=== PATIENT | male | born 1950 | race Caucasian/White ===

== ENCOUNTER 2018-05-08 19:34 | Inpatient (IN) | payer MEDICARE ==
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
[2018-05-08 19:52] LABS: % BASOPHILS 0.3 % (0.0-2.0); % EOSINOPHILS 3.8 % (0.0-5.0); % LYMPHOCYTES 24.6 % (20.0-50.0); % MONOCYTES 9.8 % (2.0-10.0); % NEUTROPHILS 61.5 % (40.0-80.0); EOSINOPHILE ABSOLUTE 0.4 Th/cmm (0.1-0.4); HEMATOCRIT 45.5 % (41.0-60); HEMOGLOBIN 15.4 gm/dL (12-16); LYMPHOCYTE ABSOLUTE 2.6 Th/cmm (1.5-3.0); MEAN CELL VOLUME 87.5 fl (80-99); MEAN CORPUSCULAR HEMOGLOBIN 29.6 pg (27.0-31.0); MEAN CORPUSCULAR HGB CONC 33.8 pg (28.0-36.0); MEAN PLATELET VOLUME 9.2 fl; NEUTROPHILE ABSOLUTE 6.7 Th/cmm (1.8-8.0); PLATELET COUNT 234 Th/cmm (150-400); RED CELL DISTRIBUTION WIDTH 13.1 % (11.5-20.0); WHITE BLOOD COUNT 10.7 Th/cmm (4.8-10.8)
[2018-05-08 20:09] LABS: ALBUMIN 3.8 gm/dL (4.2-5.5); ALKALINE PHOSPHATASE 92 U/L (34-104); ANION GAP 11.7 (7.0-16.0); BILIRUBIN,TOTAL 0.2 mg/dL (0.3-1.0); BUN - UREA NITROGEN 23 mg/dL (7-25); CALCIUM SERUM 9.3 mg/dL (8.6-10.3); CARBON DIOXIDE 23.6 mEq/L (21.0-31.0); CHLORIDE 104 mEq/L (98-107); CHOLESTEROL 201 mg/dL (<200); CREATININE - SERUM 1.3 mg/dL (0.7-1.3); GFR AFRICAN-AMERICAN > 60.0 ml/min (>90); GFR NON AFRICAN-AMERICAN 58.7 ml/min; GLUCOSE 110 mg/dL (70-105); HDL -HIGH DENSITY LIPOPROTEIN 37 mg/dL (23-92); POTASSIUM SERUM 3.3 mEq/L (3.5-5.1); SGOT 15 U/L (13-39); SGPT/ALT 10 U/L (7-52); SODIUM SERUM 136 mEq/L (136-145); TOTAL PROTEIN,SERUM 7.6 gm/dL (6.0-8.3); TRIGLYCERIDES 210 mg/dL (<150)
[2018-05-08 20:23] LABS: URINE SOURCE FOLEY PORT
[2018-05-08 20:25] LABS: URINE BILIRUBIN NEGATIVE (NEGATIVE); URINE BLOOD LARGE (NEGATIVE); URINE GLUCOSE (UA) NEGATIVE (NEGATIVE); URINE KETONE NEGATIVE (NEGATIVE); URINE LEUKOCYTE ESTERASE MODERATE (NEGATIVE); URINE MICROSCOPIC INDICATED? YES; URINE NITRATE POSITIVE (NEGATIVE); URINE PROTEIN 30 mg/dL (NEGATIVE); URINE UROBILINOGEN 0.2 E.U./dL (0.2 - 1.0)
[2018-05-08 21:17] LABS: URINE CLARITY SLIGHT CLOUDY (CLEAR); URINE COLOR YELLOW
[2018-05-08] MEDS ORDERED: Potassium Chloride 20 mEq ER Tab PO ONE ×2 (21:18→21:32)
[2018-05-08 21:24] LABS: URINE BACTERIA MODERATE /hpf (NONE SEEN); URINE EPITHELIAL CELLS FEW /lpf (FEW); URINE WBC 25-50 /hpf (0-5)
[2018-05-08 23:46] VITALS: BP 138/80
[2018-05-08] MEDS ORDERED: Magnesium Hydroxide (MOM) 30 mL UDC PO PRN (23:46)
[2018-05-08] MEDS ORDERED: Maalox 30 mL Cup PO PRN (23:46)
[2018-05-09] MEDS ORDERED: Non-Formulary Item 1 EA (Multivitamin [Multivitamins] 1 TAB) PO SCH (09:00)
[2018-05-09] MEDS: Multivitamin Tab PO SCH (09:44)
[2018-05-09] MEDS ORDERED: Haloperidol Lactate 5 mg/mL 1mL Vial IM ONE (13:34)
[2018-05-09] MEDS ORDERED: Haloperidol Lactate 5 mg/mL 1mL Vial ONE (13:35)
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
[2018-05-09 22:27] LABS: A1C % 4.9 % (4.0-6.0)
[2018-05-10] MEDS: Multivitamin Tab PO SCH (08:32)
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
--- NOTE | 2018-05-10 20:36 | Progress Notes ---
DATE: 05/10/2018 SUBJECTIVE: The patient in the hospital, agitation, combative behaviors. The patient is confused, states he feels "terrible." Does not know why he is here. He states the year is 1917, the month is February. States that it is December Day. Noted to be anxious, upset, trying to get up. Staff noting that he remains irritable, paranoid, labile, confused, not following directions, poorly oriented, dirty, unkempt, not taking care of himself, coming from [facility] due to increased agitation as noted. ASSESSMENT: The patient is confused, disoriented, agitated, poor redirection, requiring emergency medications. PLAN: We will continue to monitor. Continue Aricept for now. Consider switching to Seroquel. Given his ongoing symptoms, he is not safe for discharge. JOB# [id number]
--- NOTE | 2018-05-11 09:03 | Progress Notes ---
DATE: 05/11/2018 SUBJECTIVE: The patient in the hospital, agitation, combative behaviors, asking "why I'm here," does not know why he is here. Very upset, angry, yelling at times. States the year is 2011, the month is May, " I belong here." The patient with poor redirection and resistive to care, commanding to nursing staff, verbally abusive, very upset, irritable, angry. ASSESSMENT: The patient remains symptomatic, confused, angry, irritable, impulsive, unpredictable, shouting at staff, yelling at staff, argumentative. PLAN: We will continue to monitor. Continue medications: Abilify for example. Given his ongoing symptoms, he is not safe for discharge. Consider increasing Abilify dosing. JOB# [id number]
[2018-05-11] MEDS: Multivitamin Tab PO SCH (09:40)
--- NOTE | 2018-05-11 13:06 | General Progress Note ---
Subjective - Review of Systems Events since last encounter: patient is irritable confused, angry at staff Objective - Results Result Diagrams: 05/08/18 19:44 05/08/18 19:44 Recent Labs: Laboratory Last Values WBC 10.7 Th/cmm (4.8-10.8) 05/08/18 19:44 RBC 5.20 Mil/cmm (3.80-5.80) 05/08/18 19:44 Hgb 15.4 gm/dL (12-16) 05/08/18 19:44 Hct 45.5 % (41.0-60) 05/08/18 19:44 MCV 87.5 fl (80-99) 05/08/18 19:44 MCH 29.6 pg (27.0-31.0) 05/08/18 19:44 MCHC Differential 33.8 pg (28.0-36.0) 05/08/18 19:44 RDW 13.1 % (11.5-20.0) 05/08/18 19:44 Plt Count 234 Th/cmm (150-400) 05/08/18 19:44 MPV 9.2 fl 05/08/18 19:44 Neutrophils % 61.5 % (40.0-80.0) 05/08/18 19:44 Lymphocytes % 24.6 % (20.0-50.0) 05/08/18 19:44 Monocytes % 9.8 % (2.0-10.0) 05/08/18 19:44 Eosinophils % 3.8 % (0.0-5.0) 05/08/18 19:44 Basophils % 0.3 % (0.0-2.0) 05/08/18 19:44 Sodium 136 mEq/L (136-145) 05/08/18 19:44 Potassium 3.3 mEq/L (3.5-5.1) L 05/08/18 19:44 Chloride 104 mEq/L (98-107) 05/08/18 19:44 Carbon Dioxide 23.6 mEq/L (21.0-31.0) 05/08/18 19:44 Anion Gap 11.7 (7.0-16.0) 05/08/18 19:44 BUN 23 mg/dL (7-25) 05/08/18 19:44 Creatinine 1.3 mg/dL (0.7-1.3) 05/08/18 19:44 Est GFR ( Amer) > 60.0 ml/min (>90) 05/08/18 19:44 Est GFR (Non-Af Amer) 58.7 ml/min 05/08/18 19:44 BUN/Creatinine Ratio 17.7 05/08/18 19:44 Glucose 110 mg/dL (70-105) H 05/08/18 19:44 Hemoglobin A1c % 4.9 % (4.0-6.0) 05/08/18 19:44 Calcium 9.3 mg/dL (8.6-10.3) 05/08/18 19:44 Total Bilirubin 0.2 mg/dL (0.3-1.0) L 05/08/18 19:44 AST 15 U/L (13-39) 05/08/18 19:44 ALT 10 U/L (7-52) 05/08/18 19:44 Alkaline Phosphatase 92 U/L (34-104) 05/08/18 19:44 Total Protein 7.6 gm/dL (6.0-8.3) 05/08/18 19:44 Albumin 3.8 gm/dL (4.2-5.5) L 05/08/18 19:44 Globulin 3.8 gm/dL 05/08/18 19:44 Albumin/Globulin Ratio 1.0 (1.0-1.8) 05/08/18 19:44 Triglycerides 210 mg/dL (<150) H 05/08/18 19:44 Cholesterol 201 mg/dL (<200) H 05/08/18 19:44 LDL Cholesterol Direct 134 mg/dL (75-193) 05/08/18 19:44 HDL Cholesterol 37 mg/dL (23-92) 05/08/18 19:44 TSH 1.23 uIU/ml (0.34-5.60) 05/08/18 19:44 Urine Source [place] 05/08/18 20:00 Urine Color YELLOW 05/08/18 20:00 Urine Clarity SLIGHT CLOUDY (CLEAR) 05/08/18 20:00 Urine pH 6.0 (4.6 - 8.0) 05/08/18 20:00 Ur Specific [place] 1.025 (1.005-1.030) 05/08/18 20:00 Urine Protein 30 mg/dL (NEGATIVE) H 05/08/18 20:00 Urine Glucose (UA) NEGATIVE mg/dL (NEGATIVE) 05/08/18 20:00 Urine Ketones NEGATIVE mg/dL (NEGATIVE) 05/08/18 20:00 Urine Blood LARGE (NEGATIVE) H 05/08/18 20:00 Urine Nitrate POSITIVE (NEGATIVE) H 05/08/18 20:00 Urine Bilirubin NEGATIVE (NEGATIVE) 05/08/18 20:00 Urine Urobilinogen 0.2 E.U./dL (0.2 - 1.0) 05/08/18 20:00 Ur Leukocyte Esterase MODERATE (NEGATIVE) H 05/08/18 20:00 Urine RBC 10-25 /hpf (0-5) H 05/08/18 20:00 Urine WBC 25-50 /hpf (0-5) H 05/08/18 20:00 Ur Epithelial Cells FEW /lpf (FEW) 05/08/18 20:00 Urine Bacteria MODERATE /hpf (NONE SEEN) H 05/08/18 20:00 RPR NONREACTIVE (NONREACTIVE) 05/08/18 19:44 - Physical Exam Vitals and I&O: Vital Signs Temp 97.9 F 05/11/18 04:35 Pulse 96 05/11/18 09:40 Resp 19 05/11/18 04:35 BP 151/98 05/11/18 09:40 Pulse Ox 95 05/11/18 04:35 Intake & Output 05/10/18 05/11/18 05/11/18 18:59 06:59 18:59 Intake Total 1800 480 Output Total 800 Balance 1000 480 Intake: Oral 1800 480 Output: Urine 800 Other: # Voids 2 # Bowel Movements 1 Active Medications: Current Medications Acetaminophen (Tylenol) 650 mg PO Q4HR PRN PRN Reason: Mild Pain / Temp above 100 Stop: 07/07/18 23:45 Al Hydrox/Mg Hydrox/Simethicone (Maalox) 30 ml PO Q4HR PRN PRN Reason: GI DISTRESS Stop: 07/07/18 23:45 Amlodipine Besylate (Norvasc) 10 mg PO DAILY GENNA Stop: 07/08/18 08:59 Last Admin: 05/11/18 09:40 Dose: 10 mg Aripiprazole (Abilify) 10 mg PO HS GENNA; Protocol Stop: 07/08/18 20:59 Last Admin: 05/10/18 20:26 Dose: Not Given Lorazepam (Ativan) 0.5 mg PO Q4HR PRN; Protocol PRN Reason: Anxiety Stop: 06/07/18 23:45 Last Admin: 05/09/18 09:43 Dose: 0.5 mg Magnesium Hydroxide (Milk Of Magnesia) 30 ml PO HS PRN PRN Reason: Constipation Multivitamins/Vitamin C (Theragran) 1 tab PO DAILY GENNA Stop: 07/08/18 08:59 Last Admin: 05/11/18 09:40 Dose: 1 tab Tamsulosin HCl (Flomax) 0.4 mg PO DAILY GENNA Stop: 07/08/18 08:59 Last Admin: 05/11/18 09:40 Dose: 0.4 mg Tramadol HCl (Ultram) 50 mg PO Q12H PRN PRN Reason: Pain (Moderate) Stop: 07/08/18 07:02 Zolpidem Tartrate (Ambien) 5 mg PO HS PRN PRN Reason: Insomnia Stop: 07/07/18 23:45
[2018-05-12] MEDS: Multivitamin Tab PO SCH (08:35)
--- NOTE | 2018-05-12 16:44 | Internal Medicine Prog Note ---
Internal Medicine Objective - Results Result Diagrams: 05/08/18 19:44 05/08/18 19:44 Recent Labs: Laboratory Last Values WBC 10.7 Th/cmm (4.8-10.8) 05/08/18 19:44 RBC 5.20 Mil/cmm (3.80-5.80) 05/08/18 19:44 Hgb 15.4 gm/dL (12-16) 05/08/18 19:44 Hct 45.5 % (41.0-60) 05/08/18 19:44 MCV 87.5 fl (80-99) 05/08/18 19:44 MCH 29.6 pg (27.0-31.0) 05/08/18 19:44 MCHC Differential 33.8 pg (28.0-36.0) 05/08/18 19:44 RDW 13.1 % (11.5-20.0) 05/08/18 19:44 Plt Count 234 Th/cmm (150-400) 05/08/18 19:44 MPV 9.2 fl 05/08/18 19:44 Neutrophils % 61.5 % (40.0-80.0) 05/08/18 19:44 Lymphocytes % 24.6 % (20.0-50.0) 05/08/18 19:44 Monocytes % 9.8 % (2.0-10.0) 05/08/18 19:44 Eosinophils % 3.8 % (0.0-5.0) 05/08/18 19:44 Basophils % 0.3 % (0.0-2.0) 05/08/18 19:44 Sodium 136 mEq/L (136-145) 05/08/18 19:44 Potassium 3.3 mEq/L (3.5-5.1) L 05/08/18 19:44 Chloride 104 mEq/L (98-107) 05/08/18 19:44 Carbon Dioxide 23.6 mEq/L (21.0-31.0) 05/08/18 19:44 Anion Gap 11.7 (7.0-16.0) 05/08/18 19:44 BUN 23 mg/dL (7-25) 05/08/18 19:44 Creatinine 1.3 mg/dL (0.7-1.3) 05/08/18 19:44 Est GFR ( Amer) > 60.0 ml/min (>90) 05/08/18 19:44 Est GFR (Non-Af Amer) 58.7 ml/min 05/08/18 19:44 BUN/Creatinine Ratio 17.7 05/08/18 19:44 Glucose 110 mg/dL (70-105) H 05/08/18 19:44 POC Glucose 172 MG/DL (70 - 105) H 05/12/18 11:35 Hemoglobin A1c % 4.9 % (4.0-6.0) 05/08/18 19:44 Calcium 9.3 mg/dL (8.6-10.3) 05/08/18 19:44 Total Bilirubin 0.2 mg/dL (0.3-1.0) L 05/08/18 19:44 AST 15 U/L (13-39) 05/08/18 19:44 ALT 10 U/L (7-52) 05/08/18 19:44 Alkaline Phosphatase 92 U/L (34-104) 05/08/18 19:44 Total Protein 7.6 gm/dL (6.0-8.3) 05/08/18 19:44 Albumin 3.8 gm/dL (4.2-5.5) L 05/08/18 19:44 Globulin 3.8 gm/dL 05/08/18 19:44 Albumin/Globulin Ratio 1.0 (1.0-1.8) 05/08/18 19:44 Triglycerides 210 mg/dL (<150) H 05/08/18 19:44 Cholesterol 201 mg/dL (<200) H 05/08/18 19:44 LDL Cholesterol Direct 134 mg/dL (75-193) 05/08/18 19:44 HDL Cholesterol 37 mg/dL (23-92) 05/08/18 19:44 TSH 1.23 uIU/ml (0.34-5.60) 05/08/18 19:44 Urine Source [place] 05/08/18 20:00 Urine Color YELLOW 05/08/18 20:00 Urine Clarity SLIGHT CLOUDY (CLEAR) 05/08/18 20:00 Urine pH 6.0 (4.6 - 8.0) 05/08/18 20:00 Ur Specific [place] 1.025 (1.005-1.030) 05/08/18 20:00 Urine Protein 30 mg/dL (NEGATIVE) H 05/08/18 20:00 Urine Glucose (UA) NEGATIVE mg/dL (NEGATIVE) 05/08/18 20:00 Urine Ketones NEGATIVE mg/dL (NEGATIVE) 05/08/18 20:00 Urine Blood LARGE (NEGATIVE) H 05/08/18 20:00 Urine Nitrate POSITIVE (NEGATIVE) H 05/08/18 20:00 Urine Bilirubin NEGATIVE (NEGATIVE) 05/08/18 20:00 Urine Urobilinogen 0.2 E.U./dL (0.2 - 1.0) 05/08/18 20:00 Ur Leukocyte Esterase MODERATE (NEGATIVE) H 05/08/18 20:00 Urine RBC 10-25 /hpf (0-5) H 05/08/18 20:00 Urine WBC 25-50 /hpf (0-5) H 05/08/18 20:00 Ur Epithelial Cells FEW /lpf (FEW) 05/08/18 20:00 Urine Bacteria MODERATE /hpf (NONE SEEN) H 05/08/18 20:00 RPR NONREACTIVE (NONREACTIVE) 05/08/18 19:44 - Physical Exam Vitals and I&O: Vital Signs Temp 98.6 F 05/12/18 14:03 Pulse 103 05/12/18 14:03 Resp 18 05/12/18 14:03 BP 144/87 05/12/18 14:03 Pulse Ox 94 05/12/18 14:03 Intake & Output 05/11/18 05/12/18 05/12/18 18:59 06:59 18:59 Intake Total 2400 480 Output Total 800 Balance 1600 480 Intake: Oral 2400 480 Output: Urine 800 Other: # Voids 2 # Bowel Movements 1 Active Medications: Current Medications Acetaminophen (Tylenol) 650 mg PO Q4HR PRN PRN Reason: Mild Pain / Temp above 100 Stop: 07/07/18 23:45 Al Hydrox/Mg Hydrox/Simethicone (Maalox) 30 ml PO Q4HR PRN PRN Reason: GI DISTRESS Stop: 07/07/18 23:45 Amlodipine Besylate (Norvasc) 10 mg PO DAILY GENNA Stop: 07/08/18 08:59 Last Admin: 05/12/18 08:35 Dose: 10 mg Aripiprazole (Abilify) 10 mg PO HS GENNA; Protocol Stop: 07/08/18 20:59 Last Admin: 05/11/18 21:04 Dose: Not Given Lorazepam (Ativan) 0.5 mg PO Q4HR PRN; Protocol PRN Reason: Anxiety Stop: 06/07/18 23:45 Last Admin: 05/09/18 09:43 Dose: 0.5 mg Magnesium Hydroxide (Milk Of Magnesia) 30 ml PO HS PRN PRN Reason: Constipation Multivitamins/Vitamin C (Theragran) 1 tab PO DAILY GENNA Stop: 07/08/18 08:59 Last Admin: 05/12/18 08:35 Dose: 1 tab Tamsulosin HCl (Flomax) 0.4 mg PO DAILY GENNA Stop: 07/08/18 08:59 Last Admin: 05/12/18 08:35 Dose: 0.4 mg Tramadol HCl (Ultram) 50 mg PO Q12H PRN PRN Reason: Pain (Moderate) Stop: 07/08/18 07:02 Zolpidem Tartrate (Ambien) 5 mg PO HS PRN PRN Reason: Insomnia Stop: 07/07/18 23:45 Nutritional Asmnt/Malnutr-PDOC - Dietary Evaluation Malnutrition Findings (Please click <Entered> for more info): Nutritional Asmnt/Malnutrition Start: 05/12/18 15: 03 Text: Status: Complete Freq: Protocol: Document 05/12/18 15:03 LCHENG (Rec: 05/12/18 15:26 [email or web address] [email or web address]) Nutritional Asmnt/Malnutrition Patient General Information Nutritional Screening Moderate Risk Diagnosis psychosis Pertinent Medical Hx/Surgical Hx HTN, fossa cellulitis, hernia, splenectomy Subjective Information Pt seen sleeping in bed at time of visit. Per EMR< PO intake 100% of meals. Current Diet Order/ Nutrition Support cardiac Pertinent Medications theragran Pertinent Labs 05/08 K 3.3, glucose 110, A1c 4 .9, Alb 3.8 05/12 POC 172 Nutritional Hx/Data Height 1.7 m Height (Calculated Centimeters) 170.2 Current Weight (lbs) 72.575 kg Weight (Calculated Kilograms) 72.6 Weight (Calculated Grams) 04294.8 [place] Body Weight 148 Body Mass Index (BMI) 25.0 Weight Status Overweight GI Symptoms GI Symptoms None Last BM 8/26 Difficult in: None Skin Integrity/Comment: rash Current %PO Good (75-100%) Estimated Nutritional Goals BEE in Kcals: Using Current wt Calories/Kcals/Kg 23-27 Kcals Calculated 8227-7185 Protein: Using Current wt Protein g/k.8-1 Protein Calculated 58-73 Fluid: ml 1679-1970ml (1ml/kcal) Nutritional Problem 1. Problem Problem altered nutrition related labs Etiology electrolytes imbalance Signs/Symptoms: K 3.3 Malnutrition Alert Is there a minimum of two criteria No selected? Query Text:Check all the applicable criteria. A minimum of two criteria are recommended for diagnosis of either severe or non-severe malnutrition. Malnutrition Related to Morbid Obesity Malnutrition related to morbid obesity No Intervention/Recommendation Comments 1. Continue with current diet as ordered. MD to replace lytes. 2. Monitor PO intake, wt, labs and skin integrity 3. F/U as low risk in 7 days, 05/19 Expected Outcomes/Goals Expected Outcomes/Goals 1. PO intake to meet at least 75% of nutritional needs. 2. Wt stability, skin to remain intact, labs to approach WNL.
[2018-05-13] MEDS: Multivitamin Tab PO SCH (08:30)
--- NOTE | 2018-05-13 22:57 | Discharge Summary ---
DATE OF DISCHARGE: 05/13/2018 PATIENT'S AGE: 67. SEX: Male. PHYSICIAN: Luis Thapa MD, MPH FINAL DIAGNOSES: PRIMARY DIAGNOSES: Schizoaffective disorder, bipolar type, severe, with psychotic features. REASON FOR HOSPITALIZATION: The patient was admitted to the hospital because of combative behavior and hitting and agitation. HOSPITAL COURSE: The patient continued to be in angry and in irritable mood. The patient also was easily agitated. The patient also was at times threatening others. Also was refusing to take medications. Gradually, the patient was calmer and although he was not taking medications and refused to take medications. He had behavioral modification help the patient to be calmer. He also was interacting slightly more. The patient was discharged from the hospital. Physical examination of the patient was basically with no major medical issues or problems while in the hospital. AFTER DISCHARGE PLANS: The patient discharged from the hospital to [facility] with plans for outpatient treatment and followup to continue as an outpatient. EXPECTED OUTCOME AFTER DISCHARGE: Guarded because the patient refusal to take psychotropic medications. [facility]# [id number]
--- NOTE | 2018-05-14 00:18 | Progress Notes ---
DATE: 05/12/2018 SUBJECTIVE: Chart reviewed and the patient interviewed. Also discussed the patient's condition with the staff and reviewed records and labs. The patient is still in irritable and angry mood. The patient also is still refusing to take Abilify. Also, has been obnoxious and rude with the staff and has been needing lot of redirections. The patient also is still feeling hopeless at times, but at the same time, he is refusing to cooperate with the staff. ASSESSMENT: The patient is still agitated and in irritable mood, but no major behavioral problems. TREATMENT PLAN: Continue to monitor his behavior and his condition closely. Also, continue working on behavioral modification and adjusting psychotropic medications and continue to follow up. JOB# [id number]
--- NOTE | 2018-05-14 00:36 | Progress Notes ---
DATE: 05/13/2018 SUBJECTIVE: Chart reviewed and the patient interviewed. Also discussed the patient's condition with the staff and reviewed records and labs. The patient is still anxious and in a depressed mood. The patient said "I don't feel good." He is still interacting minimally with others and he is still feeling hopeless and helpless. Also, still suspicious and paranoid. Otherwise, the patient is compliant with taking his medications with no side effects of medications. ASSESSMENT: The patient is still psychotic and depressed. TREATMENT PLAN: Continue to monitor his behavior and his condition. We will continue to work on his ineffective coping and discharge plans. JOB# [id number]
[2018-05-14] MEDS: Multivitamin Tab PO SCH (09:00)
--- NOTE | 2018-05-14 21:15 | General Progress Note ---
Subjective - Review of Systems Service Date: 05/14/18 Subjective: awake, resting, nad Objective - Results Result Diagrams: 05/08/18 19:44 05/08/18 19:44 Recent Labs: Laboratory Last Values WBC 10.7 Th/cmm (4.8-10.8) 05/08/18 19:44 RBC 5.20 Mil/cmm (3.80-5.80) 05/08/18 19:44 Hgb 15.4 gm/dL (12-16) 05/08/18 19:44 Hct 45.5 % (41.0-60) 05/08/18 19:44 MCV 87.5 fl (80-99) 05/08/18 19:44 MCH 29.6 pg (27.0-31.0) 05/08/18 19:44 MCHC Differential 33.8 pg (28.0-36.0) 05/08/18 19:44 RDW 13.1 % (11.5-20.0) 05/08/18 19:44 Plt Count 234 Th/cmm (150-400) 05/08/18 19:44 MPV 9.2 fl 05/08/18 19:44 Neutrophils % 61.5 % (40.0-80.0) 05/08/18 19:44 Lymphocytes % 24.6 % (20.0-50.0) 05/08/18 19:44 Monocytes % 9.8 % (2.0-10.0) 05/08/18 19:44 Eosinophils % 3.8 % (0.0-5.0) 05/08/18 19:44 Basophils % 0.3 % (0.0-2.0) 05/08/18 19:44 Sodium 136 mEq/L (136-145) 05/08/18 19:44 Potassium 3.3 mEq/L (3.5-5.1) L 05/08/18 19:44 Chloride 104 mEq/L (98-107) 05/08/18 19:44 Carbon Dioxide 23.6 mEq/L (21.0-31.0) 05/08/18 19:44 Anion Gap 11.7 (7.0-16.0) 05/08/18 19:44 BUN 23 mg/dL (7-25) 05/08/18 19:44 Creatinine 1.3 mg/dL (0.7-1.3) 05/08/18 19:44 Est GFR ( Amer) > 60.0 ml/min (>90) 05/08/18 19:44 Est GFR (Non-Af Amer) 58.7 ml/min 05/08/18 19:44 BUN/Creatinine Ratio 17.7 05/08/18 19:44 Glucose 110 mg/dL (70-105) H 05/08/18 19:44 POC Glucose 172 MG/DL (70 - 105) H 05/12/18 11:35 Hemoglobin A1c % 4.9 % (4.0-6.0) 05/08/18 19:44 Calcium 9.3 mg/dL (8.6-10.3) 05/08/18 19:44 Total Bilirubin 0.2 mg/dL (0.3-1.0) L 05/08/18 19:44 AST 15 U/L (13-39) 05/08/18 19:44 ALT 10 U/L (7-52) 05/08/18 19:44 Alkaline Phosphatase 92 U/L (34-104) 05/08/18 19:44 Total Protein 7.6 gm/dL (6.0-8.3) 05/08/18 19:44 Albumin 3.8 gm/dL (4.2-5.5) L 05/08/18 19:44 Globulin 3.8 gm/dL 05/08/18 19:44 Albumin/Globulin Ratio 1.0 (1.0-1.8) 05/08/18 19:44 Triglycerides 210 mg/dL (<150) H 05/08/18 19:44 Cholesterol 201 mg/dL (<200) H 05/08/18 19:44 LDL Cholesterol Direct 134 mg/dL (75-193) 05/08/18 19:44 HDL Cholesterol 37 mg/dL (23-92) 05/08/18 19:44 TSH 1.23 uIU/ml (0.34-5.60) 05/08/18 19:44 Urine Source [place] 05/08/18 20:00 Urine Color YELLOW 05/08/18 20:00 Urine Clarity SLIGHT CLOUDY (CLEAR) 05/08/18 20:00 Urine pH 6.0 (4.6 - 8.0) 05/08/18 20:00 Ur Specific [place] 1.025 (1.005-1.030) 05/08/18 20:00 Urine Protein 30 mg/dL (NEGATIVE) H 05/08/18 20:00 Urine Glucose (UA) NEGATIVE mg/dL (NEGATIVE) 05/08/18 20:00 Urine Ketones NEGATIVE mg/dL (NEGATIVE) 05/08/18 20:00 Urine Blood LARGE (NEGATIVE) H 05/08/18 20:00 Urine Nitrate POSITIVE (NEGATIVE) H 05/08/18 20:00 Urine Bilirubin NEGATIVE (NEGATIVE) 05/08/18 20:00 Urine Urobilinogen 0.2 E.U./dL (0.2 - 1.0) 05/08/18 20:00 Ur Leukocyte Esterase MODERATE (NEGATIVE) H 05/08/18 20:00 Urine RBC 10-25 /hpf (0-5) H 05/08/18 20:00 Urine WBC 25-50 /hpf (0-5) H 05/08/18 20:00 Ur Epithelial Cells FEW /lpf (FEW) 05/08/18 20:00 Urine Bacteria MODERATE /hpf (NONE SEEN) H 05/08/18 20:00 RPR NONREACTIVE (NONREACTIVE) 05/08/18 19:44 - Physical Exam Vitals and I&O: Vital Signs Temp 98.1 F 05/14/18 16:45 Pulse 104 05/14/18 16:45 Resp 20 05/14/18 16:45 BP 137/98 05/14/18 16:45 Pulse Ox 97 05/14/18 16:45 Active Medications: Current Medications Acetaminophen (Tylenol) 650 mg PO Q4HR PRN PRN Reason: Mild Pain / Temp above 100 Stop: 07/07/18 23:45 Al Hydrox/Mg Hydrox/Simethicone (Maalox) 30 ml PO Q4HR PRN PRN Reason: GI DISTRESS Stop: 07/07/18 23:45 Amlodipine Besylate (Norvasc) 10 mg PO DAILY GENNA Stop: 07/08/18 08:59 Last Admin: 05/14/18 09:00 Dose: 10 mg Aripiprazole (Abilify) 10 mg PO HS GENNA; Protocol Stop: 07/08/18 20:59 Last Admin: 05/13/18 21:03 Dose: Not Given Lorazepam (Ativan) 0.5 mg PO Q4HR PRN; Protocol PRN Reason: Anxiety Stop: 06/07/18 23:45 Last Admin: 05/09/18 09:43 Dose: 0.5 mg Magnesium Hydroxide (Milk Of Magnesia) 30 ml PO HS PRN PRN Reason: Constipation Multivitamins/Vitamin C (Theragran) 1 tab PO DAILY GENNA Stop: 07/08/18 08:59 Last Admin: 05/14/18 09:00 Dose: 1 tab Tamsulosin HCl (Flomax) 0.4 mg PO DAILY GENNA Stop: 07/08/18 08:59 Last Admin: 05/14/18 09:00 Dose: 0.4 mg Tramadol HCl (Ultram) 50 mg PO Q12H PRN PRN Reason: Pain (Moderate) Stop: 07/08/18 07:02 Zolpidem Tartrate (Ambien) 5 mg PO HS PRN PRN Reason: Insomnia Stop: 07/07/18 23:45 Nutritional Asmnt/Malnutr-PDOC - Dietary Evaluation Malnutrition Findings (Please click <Entered> for more info): Nutritional Asmnt/Malnutrition Start: 05/12/18 15: 03 Text: Status: Complete Freq: Protocol: Document 05/12/18 15:03 LCHENG (Rec: 05/12/18 15:26 LCCRISTINAG [email or web address]) Nutritional Asmnt/Malnutrition Patient General Information Nutritional Screening Moderate Risk Diagnosis psychosis Pertinent Medical Hx/Surgical Hx HTN, fossa cellulitis, hernia, splenectomy Subjective Information Pt seen sleeping in bed at time of visit. Per EMR< PO intake 100% of meals. Current Diet Order/ Nutrition Support cardiac Pertinent Medications theragran Pertinent Labs 05/08 K 3.3, glucose 110, A1c 4 .9, Alb 3.8 05/12 POC 172 Nutritional Hx/Data Height 1.7 m Height (Calculated Centimeters) 170.2 Current Weight (lbs) 72.575 kg Weight (Calculated Kilograms) 72.6 Weight (Calculated Grams) 36710.8 [place] Body Weight 148 Body Mass Index (BMI) 25.0 Weight Status Overweight GI Symptoms GI Symptoms None Last BM 05/11 Difficult in: None Skin Integrity/Comment: rash Current %PO Good (75-100%) Estimated Nutritional Goals BEE in Kcals: Using Current wt Calories/Kcals/Kg 23-27 Kcals Calculated Protein: Using Current wt Protein g/k.8-1 Protein Calculated 58-73 Fluid: ml 1679-1970ml (1ml/kcal) Nutritional Problem 1. Problem Problem altered nutrition related labs Etiology electrolytes imbalance Signs/Symptoms: K 3.3 Malnutrition Alert Is there a minimum of two criteria No selected? Query Text:Check all the applicable criteria. A minimum of two criteria are recommended for diagnosis of either severe or non-severe malnutrition. Malnutrition Related to Morbid Obesity Malnutrition related to morbid obesity No Intervention/Recommendation Comments 1. Continue with current diet as ordered. MD to replace lytes. 2. Monitor PO intake, wt, labs and skin integrity 3. F/U as low risk in 7 days, 05/19 Expected Outcomes/Goals Expected Outcomes/Goals 1. PO intake to meet at least 75% of nutritional needs. 2. Wt stability, skin to remain intact, labs to approach WNL.
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
[2018-05-15] MEDS: Multivitamin Tab PO SCH (08:07)
--- NOTE | 2018-05-15 11:11 | General Progress Note ---
Subjective - Review of Systems Events since last encounter: awake in no distress no signs of pain Subjective: awake, resting, nad Objective - Results Result Diagrams: 05/08/18 19:44 05/08/18 19:44 Recent Labs: Laboratory Last Values WBC 10.7 Th/cmm (4.8-10.8) 05/08/18 19:44 RBC 5.20 Mil/cmm (3.80-5.80) 05/08/18 19:44 Hgb 15.4 gm/dL (12-16) 05/08/18 19:44 Hct 45.5 % (41.0-60) 05/08/18 19:44 MCV 87.5 fl (80-99) 05/08/18 19:44 MCH 29.6 pg (27.0-31.0) 05/08/18 19:44 MCHC Differential 33.8 pg (28.0-36.0) 05/08/18 19:44 RDW 13.1 % (11.5-20.0) 05/08/18 19:44 Plt Count 234 Th/cmm (150-400) 05/08/18 19:44 MPV 9.2 fl 05/08/18 19:44 Neutrophils % 61.5 % (40.0-80.0) 05/08/18 19:44 Lymphocytes % 24.6 % (20.0-50.0) 05/08/18 19:44 Monocytes % 9.8 % (2.0-10.0) 05/08/18 19:44 Eosinophils % 3.8 % (0.0-5.0) 05/08/18 19:44 Basophils % 0.3 % (0.0-2.0) 05/08/18 19:44 Sodium 136 mEq/L (136-145) 05/08/18 19:44 Potassium 3.3 mEq/L (3.5-5.1) L 05/08/18 19:44 Chloride 104 mEq/L (98-107) 05/08/18 19:44 Carbon Dioxide 23.6 mEq/L (21.0-31.0) 05/08/18 19:44 Anion Gap 11.7 (7.0-16.0) 05/08/18 19:44 BUN 23 mg/dL (7-25) 05/08/18 19:44 Creatinine 1.3 mg/dL (0.7-1.3) 05/08/18 19:44 Est GFR ( Amer) > 60.0 ml/min (>90) 05/08/18 19:44 Est GFR (Non-Af Amer) 58.7 ml/min 05/08/18 19:44 BUN/Creatinine Ratio 17.7 05/08/18 19:44 Glucose 110 mg/dL (70-105) H 05/08/18 19:44 POC Glucose 172 MG/DL (70 - 105) H 05/12/18 11:35 Hemoglobin A1c % 4.9 % (4.0-6.0) 05/08/18 19:44 Calcium 9.3 mg/dL (8.6-10.3) 05/08/18 19:44 Total Bilirubin 0.2 mg/dL (0.3-1.0) L 05/08/18 19:44 AST 15 U/L (13-39) 05/08/18 19:44 ALT 10 U/L (7-52) 05/08/18 19:44 Alkaline Phosphatase 92 U/L (34-104) 05/08/18 19:44 Total Protein 7.6 gm/dL (6.0-8.3) 05/08/18 19:44 Albumin 3.8 gm/dL (4.2-5.5) L 05/08/18 19:44 Globulin 3.8 gm/dL 05/08/18 19:44 Albumin/Globulin Ratio 1.0 (1.0-1.8) 05/08/18 19:44 Triglycerides 210 mg/dL (<150) H 05/08/18 19:44 Cholesterol 201 mg/dL (<200) H 05/08/18 19:44 LDL Cholesterol Direct 134 mg/dL (75-193) 05/08/18 19:44 HDL Cholesterol 37 mg/dL (23-92) 05/08/18 19:44 TSH 1.23 uIU/ml (0.34-5.60) 05/08/18 19:44 Urine Source [place] 05/08/18 20:00 Urine Color YELLOW 05/08/18 20:00 Urine Clarity SLIGHT CLOUDY (CLEAR) 05/08/18 20:00 Urine pH 6.0 (4.6 - 8.0) 05/08/18 20:00 Ur Specific [place] 1.025 (1.005-1.030) 05/08/18 20:00 Urine Protein 30 mg/dL (NEGATIVE) H 05/08/18 20:00 Urine Glucose (UA) NEGATIVE mg/dL (NEGATIVE) 05/08/18 20:00 Urine Ketones NEGATIVE mg/dL (NEGATIVE) 05/08/18 20:00 Urine Blood LARGE (NEGATIVE) H 05/08/18 20:00 Urine Nitrate POSITIVE (NEGATIVE) H 05/08/18 20:00 Urine Bilirubin NEGATIVE (NEGATIVE) 05/08/18 20:00 Urine Urobilinogen 0.2 E.U./dL (0.2 - 1.0) 05/08/18 20:00 Ur Leukocyte Esterase MODERATE (NEGATIVE) H 05/08/18 20:00 Urine RBC 10-25 /hpf (0-5) H 05/08/18 20:00 Urine WBC 25-50 /hpf (0-5) H 05/08/18 20:00 Ur Epithelial Cells FEW /lpf (FEW) 05/08/18 20:00 Urine Bacteria MODERATE /hpf (NONE SEEN) H 05/08/18 20:00 RPR NONREACTIVE (NONREACTIVE) 05/08/18 19:44 - Physical Exam Vitals and I&O: Vital Signs Temp 98.1 F 05/14/18 16:45 Pulse 82 05/15/18 08:06 Resp 20 05/14/18 16:45 BP 148/94 05/15/18 08:06 Pulse Ox 97 05/14/18 16:45 Active Medications: Current Medications Acetaminophen (Tylenol) 650 mg PO Q4HR PRN PRN Reason: Mild Pain / Temp above 100 Stop: 07/07/18 23:45 Al Hydrox/Mg Hydrox/Simethicone (Maalox) 30 ml PO Q4HR PRN PRN Reason: GI DISTRESS Stop: 07/07/18 23:45 Amlodipine Besylate (Norvasc) 10 mg PO DAILY GENNA Stop: 07/08/18 08:59 Last Admin: 05/15/18 08:06 Dose: 10 mg Aripiprazole (Abilify) 10 mg PO HS GENNA; Protocol Stop: 07/08/18 20:59 Last Admin: 05/14/18 21:17 Dose: Not Given Lorazepam (Ativan) 0.5 mg PO Q4HR PRN; Protocol PRN Reason: Anxiety Stop: 06/07/18 23:45 Last Admin: 05/09/18 09:43 Dose: 0.5 mg Magnesium Hydroxide (Milk Of Magnesia) 30 ml PO HS PRN PRN Reason: Constipation Multivitamins/Vitamin C (Theragran) 1 tab PO DAILY GENNA Stop: 07/08/18 08:59 Last Admin: 05/15/18 08:07 Dose: 1 tab Tamsulosin HCl (Flomax) 0.4 mg PO DAILY GENNA Stop: 07/08/18 08:59 Last Admin: 05/15/18 08:07 Dose: 0.4 mg Tramadol HCl (Ultram) 50 mg PO Q12H PRN PRN Reason: Pain (Moderate) Stop: 07/08/18 07:02 Zolpidem Tartrate (Ambien) 5 mg PO HS PRN PRN Reason: Insomnia Stop: 07/07/18 23:45 Nutritional Asmnt/Malnutr-PDOC - Dietary Evaluation Malnutrition Findings (Please click <Entered> for more info): Nutritional Asmnt/Malnutrition Start: 05/12/18 15: 03 Text: Status: Complete Freq: Protocol: Document 05/12/18 15:03 LCHENG (Rec: 05/12/18 15:26 LCCRISTINAG [email or web address]) Nutritional Asmnt/Malnutrition Patient General Information Nutritional Screening Moderate Risk Diagnosis psychosis Pertinent Medical Hx/Surgical Hx HTN, fossa cellulitis, hernia, splenectomy Subjective Information Pt seen sleeping in bed at time of visit. Per EMR< PO intake 100% of meals. Current Diet Order/ Nutrition Support cardiac Pertinent Medications theragran Pertinent Labs 05/08 K 3.3, glucose 110, A1c 4 .9, Alb 3.8 05/12 POC 172 Nutritional Hx/Data Height 1.7 m Height (Calculated Centimeters) 170.2 Current Weight (lbs) 72.575 kg Weight (Calculated Kilograms) 72.6 Weight (Calculated Grams) 67689.8 [place] Body Weight 148 Body Mass Index (BMI) 25.0 Weight Status Overweight GI Symptoms GI Symptoms None Last BM 05/11 Difficult in: None Skin Integrity/Comment: rash Current %PO Good (75-100%) Estimated Nutritional Goals BEE in Kcals: Using Current wt Calories/Kcals/Kg 23-27 Kcals Calculated 1921-9949 Protein: Using Current wt Protein g/k.8-1 Protein Calculated 58-73 Fluid: ml 1679-1970ml (1ml/kcal) Nutritional Problem 1. Problem Problem altered nutrition related labs Etiology electrolytes imbalance Signs/Symptoms: K 3.3 Malnutrition Alert Is there a minimum of two criteria No selected? Query Text:Check all the applicable criteria. A minimum of two criteria are recommended for diagnosis of either severe or non-severe malnutrition. Malnutrition Related to Morbid Obesity Malnutrition related to morbid obesity No Intervention/Recommendation Comments 1. Continue with current diet as ordered. MD to replace lytes. 2. Monitor PO intake, wt, labs and skin integrity 3. F/U as low risk in 7 days, 05/19 Expected Outcomes/Goals Expected Outcomes/Goals 1. PO intake to meet at least 75% of nutritional needs. 2. Wt stability, skin to remain intact, labs to approach WNL.
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
[2018-05-16] MEDS: Multivitamin Tab PO SCH (08:43)
--- NOTE | 2018-05-16 12:05 | Internal Medicine Prog Note ---
Internal Medicine Subjective - Subjective Service Date: 05/16/18 Patient seen and examined:: with staff Internal Medicine Objective - Results Result Diagrams: 05/08/18 19:44 05/08/18 19:44 Recent Labs: Laboratory Last Values WBC 10.7 Th/cmm (4.8-10.8) 05/08/18 19:44 RBC 5.20 Mil/cmm (3.80-5.80) 05/08/18 19:44 Hgb 15.4 gm/dL (12-16) 05/08/18 19:44 Hct 45.5 % (41.0-60) 05/08/18 19:44 MCV 87.5 fl (80-99) 05/08/18 19:44 MCH 29.6 pg (27.0-31.0) 05/08/18 19:44 MCHC Differential 33.8 pg (28.0-36.0) 05/08/18 19:44 RDW 13.1 % (11.5-20.0) 05/08/18 19:44 Plt Count 234 Th/cmm (150-400) 05/08/18 19:44 MPV 9.2 fl 05/08/18 19:44 Neutrophils % 61.5 % (40.0-80.0) 05/08/18 19:44 Lymphocytes % 24.6 % (20.0-50.0) 05/08/18 19:44 Monocytes % 9.8 % (2.0-10.0) 05/08/18 19:44 Eosinophils % 3.8 % (0.0-5.0) 05/08/18 19:44 Basophils % 0.3 % (0.0-2.0) 05/08/18 19:44 Sodium 136 mEq/L (136-145) 05/08/18 19:44 Potassium 3.3 mEq/L (3.5-5.1) L 05/08/18 19:44 Chloride 104 mEq/L (98-107) 05/08/18 19:44 Carbon Dioxide 23.6 mEq/L (21.0-31.0) 05/08/18 19:44 Anion Gap 11.7 (7.0-16.0) 05/08/18 19:44 BUN 23 mg/dL (7-25) 08/23/18 19:44 Creatinine 1.3 mg/dL (0.7-1.3) 05/08/18 19:44 Est GFR ( Amer) > 60.0 ml/min (>90) 05/08/18 19:44 Est GFR (Non-Af Amer) 58.7 ml/min 05/08/18 19:44 BUN/Creatinine Ratio 17.7 05/08/18 19:44 Glucose 110 mg/dL (70-105) H 05/08/18 19:44 POC Glucose 172 MG/DL (70 - 105) H 05/12/18 11:35 Hemoglobin A1c % 4.9 % (4.0-6.0) 05/08/18 19:44 Calcium 9.3 mg/dL (8.6-10.3) 05/08/18 19:44 Total Bilirubin 0.2 mg/dL (0.3-1.0) L 05/08/18 19:44 AST 15 U/L (13-39) 05/08/18 19:44 ALT 10 U/L (7-52) 05/08/18 19:44 Alkaline Phosphatase 92 U/L (34-104) 05/08/18 19:44 Total Protein 7.6 gm/dL (6.0-8.3) 05/08/18 19:44 Albumin 3.8 gm/dL (4.2-5.5) L 05/08/18 19:44 Globulin 3.8 gm/dL 05/08/18 19:44 Albumin/Globulin Ratio 1.0 (1.0-1.8) 05/08/18 19:44 Triglycerides 210 mg/dL (<150) H 05/08/18 19:44 Cholesterol 201 mg/dL (<200) H 05/08/18 19:44 LDL Cholesterol Direct 134 mg/dL (75-193) 05/08/18 19:44 HDL Cholesterol 37 mg/dL (23-92) 05/08/18 19:44 TSH 1.23 uIU/ml (0.34-5.60) 05/08/18 19:44 Urine Source [place] 05/08/18 20:00 Urine Color YELLOW 05/08/18 20:00 Urine Clarity SLIGHT CLOUDY (CLEAR) 05/08/18 20:00 Urine pH 6.0 (4.6 - 8.0) 05/08/18 20:00 Ur Specific [place] 1.025 (1.005-1.030) 05/08/18 20:00 Urine Protein 30 mg/dL (NEGATIVE) H 05/08/18 20:00 Urine Glucose (UA) NEGATIVE mg/dL (NEGATIVE) 05/08/18 20:00 Urine Ketones NEGATIVE mg/dL (NEGATIVE) 05/08/18 20:00 Urine Blood LARGE (NEGATIVE) H 05/08/18 20:00 Urine Nitrate POSITIVE (NEGATIVE) H 05/08/18 20:00 Urine Bilirubin NEGATIVE (NEGATIVE) 05/08/18 20:00 Urine Urobilinogen 0.2 E.U./dL (0.2 - 1.0) 05/08/18 20:00 Ur Leukocyte Esterase MODERATE (NEGATIVE) H 05/08/18 20:00 Urine RBC 10-25 /hpf (0-5) H 05/08/18 20:00 Urine WBC 25-50 /hpf (0-5) H 05/08/18 20:00 Ur Epithelial Cells FEW /lpf (FEW) 05/08/18 20:00 Urine Bacteria MODERATE /hpf (NONE SEEN) H 05/08/18 20:00 RPR NONREACTIVE (NONREACTIVE) 05/08/18 19:44 - Physical Exam Vitals and I&O: Vital Signs Temp 98.7 F 05/16/18 04:23 Pulse 83 05/16/18 08:43 Resp 19 05/16/18 04:23 BP 158/93 05/16/18 08:43 Pulse Ox 95 05/16/18 04:23 Intake & Output 05/15/18 05/16/18 05/16/18 18:59 06:59 18:59 Intake Total 480 Balance 480 Intake: Oral 480 Other: # Voids 1 2 # Bowel Movements 1 Active Medications: Current Medications Acetaminophen (Tylenol) 650 mg PO Q4HR PRN PRN Reason: Mild Pain / Temp above 100 Stop: 07/07/18 23:45 Al Hydrox/Mg Hydrox/Simethicone (Maalox) 30 ml PO Q4HR PRN PRN Reason: GI DISTRESS Stop: 07/07/18 23:45 Amlodipine Besylate (Norvasc) 10 mg PO DAILY GENNA Stop: 07/08/18 08:59 Last Admin: 05/16/18 08:43 Dose: 10 mg Aripiprazole (Abilify) 10 mg PO HS GENNA; Protocol Stop: 07/08/18 20:59 Last Admin: 05/15/18 20:36 Dose: Not Given Lorazepam (Ativan) 0.5 mg PO Q4HR PRN; Protocol PRN Reason: Anxiety Stop: 06/07/18 23:45 Last Admin: 05/09/18 09:43 Dose: 0.5 mg Magnesium Hydroxide (Milk Of Magnesia) 30 ml PO HS PRN PRN Reason: Constipation Multivitamins/Vitamin C (Theragran) 1 tab PO DAILY GENNA Stop: 07/08/18 08:59 Last Admin: 05/16/18 08:43 Dose: 1 tab Tamsulosin HCl (Flomax) 0.4 mg PO DAILY GENNA Stop: 07/08/18 08:59 Last Admin: 05/16/18 08:44 Dose: 0.4 mg Tramadol HCl (Ultram) 50 mg PO Q12H PRN PRN Reason: Pain (Moderate) Stop: 07/08/18 07:02 Zolpidem Tartrate (Ambien) 5 mg PO HS PRN PRN Reason: Insomnia Stop: 07/07/18 23:45 Internal Medicine Assmt/Plan - Assessment Assessment: agitation htn - Plan Plan: cpm Nutritional Asmnt/Malnutr-PDOC - Dietary Evaluation Malnutrition Findings (Please click <Entered> for more info): Nutritional Asmnt/Malnutrition Start: 05/12/18 15: 03 Text: Status: Complete Freq: Protocol: Document 05/12/18 15:03 LCHENG (Rec: 05/12/18 15:26 LCCRISTINAG [email or web address]) Nutritional Asmnt/Malnutrition Patient General Information Nutritional Screening Moderate Risk Diagnosis psychosis Pertinent Medical Hx/Surgical Hx HTN, fossa cellulitis, hernia, splenectomy Subjective Information Pt seen sleeping in bed at time of visit. Per EMR< PO intake 100% of meals. Current Diet Order/ Nutrition Support cardiac Pertinent Medications theragran Pertinent Labs 05/08 K 3.3, glucose 110, A1c 4 .9, Alb 3.8 05/12 POC 172 Nutritional Hx/Data Height 5 ft 7 in Height (Calculated Centimeters) 170.2 Current Weight (lbs) 160 lb Weight (Calculated Kilograms) 72.6 Weight (Calculated Grams) 83167.8 [place] Body Weight 148 Body Mass Index (BMI) 25.0 Weight Status Overweight GI Symptoms GI Symptoms None Last BM 05/11 Difficult in: None Skin Integrity/Comment: rash Current %PO Good (75-100%) Estimated Nutritional Goals BEE in Kcals: Using Current wt Calories/Kcals/Kg 23-27 Kcals Calculated 5685-8647 Protein: Using Current wt Protein g/k.8-1 Protein Calculated 58-73 Fluid: ml 1679-1970ml (1ml/kcal) Nutritional Problem 1. Problem Problem altered nutrition related labs Etiology electrolytes imbalance Signs/Symptoms: K 3.3 Malnutrition Alert Is there a minimum of two criteria No selected? Query Text:Check all the applicable criteria. A minimum of two criteria are recommended for diagnosis of either severe or non-severe malnutrition. Malnutrition Related to Morbid Obesity Malnutrition related to morbid obesity No Intervention/Recommendation Comments 1. Continue with current diet as ordered. MD to replace lytes. 2. Monitor PO intake, wt, labs and skin integrity 3. F/U as low risk in 7 days, 05/19 Expected Outcomes/Goals Expected Outcomes/Goals 1. PO intake to meet at least 75% of nutritional needs. 2. Wt stability, skin to remain intact, labs to approach WNL.
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
[2018-05-17] MEDS: Multivitamin Tab PO SCH (09:17)
--- NOTE | 2018-05-17 18:39 | Progress Notes ---
DATE: 05/17/2018 SUBJECTIVE: The patient was seen at the dining area. The patient appears to be guarded and irritable with behavioral outbursts. The patient appears to be guarded and intrusive. Otherwise, the patient appears to be in no acute distress. OBJECTIVE: VITAL SIGNS: Temperature 99.4, heart rate 94, blood pressure 144/95, respirations of 19, 96% on room air. HEENT: Head is atraumatic and normocephalic. Eyes: Bilateral conjunctivae are clear. Bilateral pupils are equally round and reactive. NECK: Supple. No JVD. CARDIOVASCULAR: S1 and S2, without murmur. PULMONARY: Clear to auscultation. GASTROINTESTINAL: Soft and nontender without guarding. Positive bowel sounds. MUSCULOSKELETAL: No clubbing. No cyanosis noted. ASSESSMENT: 1. Schizoaffective disorder. 2. Hypertension. 3. Benign prostatic hypertrophy. 4. Osteoarthritis. PLAN: We will keep the patient inpatient psychiatric unit and we will follow up with the psychiatrist to monitor the patient's condition and behavior. Treatment plans were discussed with the patient's nurse. Treatment plans were discussed with Dr. Goldsmith. JOB# [id number]
--- NOTE | 2018-05-18 01:56 | Progress Notes ---
DATE: 05/17/2018 SUBJECTIVE: The patient noted by staff to be unruly, verbally abusive toward other residents, calling an resident "brownie" "brother." Calling staff "idiots" and "assholes." Does not want to be woken up at night. The patient argumentative, intrusive, very manipulative, angry, upset, disrupting the milieu. ASSESSMENT: The patient is rude, racist, prejudice comments, calling other residents "brownies," and staff noting he is bullying other patients on the unit. PLAN: We will continue to monitor. I will be increasing his dosing of Abilify. Ongoing safety concerns. I did speak with the patient about trying to be calmer and not calling people by these rude names, but he does not listen. JOB# [id number]
[2018-05-18] MEDS: Multivitamin Tab PO SCH (09:13)
--- NOTE | 2018-05-18 09:19 | General Progress Note ---
Subjective - Review of Systems Events since last encounter: patient is awake ,alert seems irritable, guarded Subjective: awake, resting, nad Objective - Results Result Diagrams: 05/08/18 19:44 05/08/18 19:44 Recent Labs: Laboratory Last Values WBC 10.7 Th/cmm (4.8-10.8) 05/08/18 19:44 RBC 5.20 Mil/cmm (3.80-5.80) 05/08/18 19:44 Hgb 15.4 gm/dL (12-16) 05/08/18 19:44 Hct 45.5 % (41.0-60) 05/08/18 19:44 MCV 87.5 fl (80-99) 05/08/18 19:44 MCH 29.6 pg (27.0-31.0) 05/08/18 19:44 MCHC Differential 33.8 pg (28.0-36.0) 05/08/18 19:44 RDW 13.1 % (11.5-20.0) 05/08/18 19:44 Plt Count 234 Th/cmm (150-400) 05/08/18 19:44 MPV 9.2 fl 05/08/18 19:44 Neutrophils % 61.5 % (40.0-80.0) 05/08/18 19:44 Lymphocytes % 24.6 % (20.0-50.0) 05/08/18 19:44 Monocytes % 9.8 % (2.0-10.0) 05/08/18 19:44 Eosinophils % 3.8 % (0.0-5.0) 05/08/18 19:44 Basophils % 0.3 % (0.0-2.0) 05/08/18 19:44 Sodium 136 mEq/L (136-145) 05/08/18 19:44 Potassium 3.3 mEq/L (3.5-5.1) L 05/08/18 19:44 Chloride 104 mEq/L (98-107) 05/08/18 19:44 Carbon Dioxide 23.6 mEq/L (21.0-31.0) 05/08/18 19:44 Anion Gap 11.7 (7.0-16.0) 05/08/18 19:44 BUN 23 mg/dL (7-25) 05/08/18 19:44 Creatinine 1.3 mg/dL (0.7-1.3) 05/08/18 19:44 Est GFR ( Amer) > 60.0 ml/min (>90) 05/08/18 19:44 Est GFR (Non-Af Amer) 58.7 ml/min 05/08/18 19:44 BUN/Creatinine Ratio 17.7 05/08/18 19:44 Glucose 110 mg/dL (70-105) H 05/08/18 19:44 POC Glucose 172 MG/DL (70 - 105) H 05/12/18 11:35 Hemoglobin A1c % 4.9 % (4.0-6.0) 05/08/18 19:44 Calcium 9.3 mg/dL (8.6-10.3) 05/08/18 19:44 Total Bilirubin 0.2 mg/dL (0.3-1.0) L 05/08/18 19:44 AST 15 U/L (13-39) 05/08/18 19:44 ALT 10 U/L (7-52) 05/08/18 19:44 Alkaline Phosphatase 92 U/L (34-104) 05/08/18 19:44 Total Protein 7.6 gm/dL (6.0-8.3) 05/08/18 19:44 Albumin 3.8 gm/dL (4.2-5.5) L 05/08/18 19:44 Globulin 3.8 gm/dL 05/08/18 19:44 Albumin/Globulin Ratio 1.0 (1.0-1.8) 05/08/18 19:44 Triglycerides 210 mg/dL (<150) H 05/08/18 19:44 Cholesterol 201 mg/dL (<200) H 05/08/18 19:44 LDL Cholesterol Direct 134 mg/dL (75-193) 05/08/18 19:44 HDL Cholesterol 37 mg/dL (23-92) 05/08/18 19:44 TSH 1.23 uIU/ml (0.34-5.60) 05/08/18 19:44 Urine Source [place] 05/08/18 20:00 Urine Color YELLOW 05/08/18 20:00 Urine Clarity SLIGHT CLOUDY (CLEAR) 05/08/18 20:00 Urine pH 6.0 (4.6 - 8.0) 05/08/18 20:00 Ur Specific [place] 1.025 (1.005-1.030) 05/08/18 20:00 Urine Protein 30 mg/dL (NEGATIVE) H 05/08/18 20:00 Urine Glucose (UA) NEGATIVE mg/dL (NEGATIVE) 05/08/18 20:00 Urine Ketones NEGATIVE mg/dL (NEGATIVE) 05/08/18 20:00 Urine Blood LARGE (NEGATIVE) H 05/08/18 20:00 Urine Nitrate POSITIVE (NEGATIVE) H 05/08/18 20:00 Urine Bilirubin NEGATIVE (NEGATIVE) 05/08/18 20:00 Urine Urobilinogen 0.2 E.U./dL (0.2 - 1.0) 05/08/18 20:00 Ur Leukocyte Esterase MODERATE (NEGATIVE) H 05/08/18 20:00 Urine RBC 10-25 /hpf (0-5) H 05/08/18 20:00 Urine WBC 25-50 /hpf (0-5) H 05/08/18 20:00 Ur Epithelial Cells FEW /lpf (FEW) 05/08/18 20:00 Urine Bacteria MODERATE /hpf (NONE SEEN) H 05/08/18 20:00 RPR NONREACTIVE (NONREACTIVE) 05/08/18 19:44 - Physical Exam Vitals and I&O: Vital Signs Temp 98.2 F 05/18/18 06:00 Pulse 71 05/18/18 09:13 Resp 19 05/18/18 06:00 BP 130/89 05/18/18 09:13 Pulse Ox 96 05/18/18 06:00 Intake & Output 05/17/18 05/18/18 05/18/18 18:59 06:59 18:59 Intake Total 500 Output Total 500 Balance 0 Intake: Oral 500 Output: Urine 500 Active Medications: Current Medications Acetaminophen (Tylenol) 650 mg PO Q4HR PRN PRN Reason: Mild Pain / Temp above 100 Stop: 07/07/18 23:45 Al Hydrox/Mg Hydrox/Simethicone (Maalox) 30 ml PO Q4HR PRN PRN Reason: GI DISTRESS Stop: 07/07/18 23:45 Amlodipine Besylate (Norvasc) 10 mg PO DAILY GENNA Stop: 07/08/18 08:59 Last Admin: 05/18/18 09:13 Dose: 10 mg Aripiprazole (Abilify) 15 mg PO HS GENNA; Protocol Stop: 07/16/18 20:59 Last Admin: 05/17/18 21:16 Dose: Not Given Lorazepam (Ativan) 1 mg PO Q4H PRN; Protocol PRN Reason: Anxiety Stop: 07/16/18 07:10 Magnesium Hydroxide (Milk Of Magnesia) 30 ml PO HS PRN PRN Reason: Constipation Multivitamins/Vitamin C (Theragran) 1 tab PO DAILY GENNA Stop: 07/08/18 08:59 Last Admin: 05/18/18 09:13 Dose: 1 tab Tamsulosin HCl (Flomax) 0.4 mg PO DAILY GENNA Stop: 07/08/18 08:59 Last Admin: 05/18/18 09:17 Dose: 0.4 mg Tramadol HCl (Ultram) 50 mg PO Q12H PRN PRN Reason: Pain (Moderate) Stop: 07/08/18 07:02 Zolpidem Tartrate (Ambien) 5 mg PO HS PRN PRN Reason: Insomnia Stop: 07/07/18 23:45 General: No acute distress HEENT: Atraumatic, PERRLA Neck: Supple, JVD Cardiovascular: Regular rate, Normal S1, Normal S2 Lungs: Clear to auscultation Abdomen: Bowel sounds Assessment/Plan - Problem List Patient Problems: All Active Problems BPH (benign prostatic hyperplasia) (Acute) N40.0 HTN (hypertension) (Acute) I10 Osteoarthritis (Acute) M19.90 Schizophrenia (Acute) F20.9 - Plan Plan: as per psych will monitor Nutritional Asmnt/Malnutr-PDOC - Dietary Evaluation Malnutrition Findings (Please click <Entered> for more info): Nutritional Asmnt/Malnutrition Start: 05/12/18 15: 03 Text: Status: Complete Freq: Protocol: Document 05/12/18 15:03 PATELG (Rec: 05/12/18 15:26 CARLTON [email or web address]) Nutritional Asmnt/Malnutrition Patient General Information Nutritional Screening Moderate Risk Diagnosis psychosis Pertinent Medical Hx/Surgical Hx HTN, fossa cellulitis, hernia, splenectomy Subjective Information Pt seen sleeping in bed at time of visit. Per EMR< PO intake 100% of meals. Current Diet Order/ Nutrition Support cardiac Pertinent Medications theragran Pertinent Labs 05/08 K 3.3, glucose 110, A1c 4 .9, Alb 3.8 05/12 POC 172 Nutritional Hx/Data Height 1.7 m Height (Calculated Centimeters) 170.2 Current Weight (lbs) 72.575 kg Weight (Calculated Kilograms) 72.6 Weight (Calculated Grams) 92315.8 [place] Body Weight 148 Body Mass Index (BMI) 25.0 Weight Status Overweight GI Symptoms GI Symptoms None Last BM 05/11 Difficult in: None Skin Integrity/Comment: rash Current %PO Good (75-100%) Estimated Nutritional Goals BEE in Kcals: Using Current wt Calories/Kcals/Kg 23-27 Kcals Calculated 2868-9387 Protein: Using Current wt Protein g/k.8-1 Protein Calculated 58-73 Fluid: ml 1679-1970ml (1ml/kcal) Nutritional Problem 1. Problem Problem altered nutrition related labs Etiology electrolytes imbalance Signs/Symptoms: K 3.3 Malnutrition Alert Is there a minimum of two criteria No selected? Query Text:Check all the applicable criteria. A minimum of two criteria are recommended for diagnosis of either severe or non-severe malnutrition. Malnutrition Related to Morbid Obesity Malnutrition related to morbid obesity No Intervention/Recommendation Comments 1. Continue with current diet as ordered. MD to replace lytes. 2. Monitor PO intake, wt, labs and skin integrity 3. F/U as low risk in 7 days, 05/19 Expected Outcomes/Goals Expected Outcomes/Goals 1. PO intake to meet at least 75% of nutritional needs. 2. Wt stability, skin to remain intact, labs to approach WNL.
--- NOTE | 2018-05-19 05:27 | Progress Notes ---
DATE: 05/18/2018 SUBJECTIVE: The patient was seen, chart reviewed, discussed with staff. The patient was seen on 05/18/2018. The patient is very angry, still upset, racist, quite bigoted, mood swings, labile, getting into a verbal escalation with other peers and staff, disrupting the milieu, calling an -Libyan patient Brownie, giving him odd names, attesting him and bullying him. The patient gets upset when asked the staff. The patient is disabled physically and unable to care for himself, concerns about grave disability, and we are actively trying to help him with placements. The patient is sleeping well, eating well with funding coordinator awakenings. ASSESSMENT: The patient is agitated, verbally aggressive, argumentative, resistant to care, prompting other patients. Staff is keeping a close eye on him given his disruption of the milieu. We will continue to monitor. I did increase Abilify yesterday. Medications were noted. JOB# [id number]
[2018-05-19] MEDS: Multivitamin Tab PO SCH (08:19)
--- NOTE | 2018-05-19 10:17 | General Progress Note ---
Subjective - Review of Systems Events since last encounter: patient still irritable agitated at times no signs of pain Subjective: awake, resting, nad Objective - Results Result Diagrams: 05/08/18 19:44 05/08/18 19:44 Recent Labs: Laboratory Last Values WBC 10.7 Th/cmm (4.8-10.8) 05/08/18 19:44 RBC 5.20 Mil/cmm (3.80-5.80) 05/08/18 19:44 Hgb 15.4 gm/dL (12-16) 05/08/18 19:44 Hct 45.5 % (41.0-60) 05/08/18 19:44 MCV 87.5 fl (80-99) 05/08/18 19:44 MCH 29.6 pg (27.0-31.0) 05/08/18 19:44 MCHC Differential 33.8 pg (28.0-36.0) 05/08/18 19:44 RDW 13.1 % (11.5-20.0) 05/08/18 19:44 Plt Count 234 Th/cmm (150-400) 05/08/18 19:44 MPV 9.2 fl 05/08/18 19:44 Neutrophils % 61.5 % (40.0-80.0) 05/08/18 19:44 Lymphocytes % 24.6 % (20.0-50.0) 05/08/18 19:44 Monocytes % 9.8 % (2.0-10.0) 05/08/18 19:44 Eosinophils % 3.8 % (0.0-5.0) 05/08/18 19:44 Basophils % 0.3 % (0.0-2.0) 05/08/18 19:44 Sodium 136 mEq/L (136-145) 05/08/18 19:44 Potassium 3.3 mEq/L (3.5-5.1) L 05/08/18 19:44 Chloride 104 mEq/L (98-107) 05/08/18 19:44 Carbon Dioxide 23.6 mEq/L (21.0-31.0) 05/08/18 19:44 Anion Gap 11.7 (7.0-16.0) 05/08/18 19:44 BUN 23 mg/dL (7-25) 05/08/18 19:44 Creatinine 1.3 mg/dL (0.7-1.3) 05/08/18 19:44 Est GFR ( Amer) > 60.0 ml/min (>90) 05/08/18 19:44 Est GFR (Non-Af Amer) 58.7 ml/min 05/08/18 19:44 BUN/Creatinine Ratio 17.7 05/08/18 19:44 Glucose 110 mg/dL (70-105) H 05/08/18 19:44 POC Glucose 172 MG/DL (70 - 105) H 05/12/18 11:35 Hemoglobin A1c % 4.9 % (4.0-6.0) 05/08/18 19:44 Calcium 9.3 mg/dL (8.6-10.3) 05/08/18 19:44 Total Bilirubin 0.2 mg/dL (0.3-1.0) L 05/08/18 19:44 AST 15 U/L (13-39) 05/08/18 19:44 ALT 10 U/L (7-52) 05/08/18 19:44 Alkaline Phosphatase 92 U/L (34-104) 05/08/18 19:44 Total Protein 7.6 gm/dL (6.0-8.3) 05/08/18 19:44 Albumin 3.8 gm/dL (4.2-5.5) L 05/08/18 19:44 Globulin 3.8 gm/dL 05/08/18 19:44 Albumin/Globulin Ratio 1.0 (1.0-1.8) 05/08/18 19:44 Triglycerides 210 mg/dL (<150) H 05/08/18 19:44 Cholesterol 201 mg/dL (<200) H 05/08/18 19:44 LDL Cholesterol Direct 134 mg/dL (75-193) 05/08/18 19:44 HDL Cholesterol 37 mg/dL (23-92) 05/08/18 19:44 TSH 1.23 uIU/ml (0.34-5.60) 05/08/18 19:44 Urine Source [place] 05/08/18 20:00 Urine Color YELLOW 05/08/18 20:00 Urine Clarity SLIGHT CLOUDY (CLEAR) 05/08/18 20:00 Urine pH 6.0 (4.6 - 8.0) 05/08/18 20:00 Ur Specific [place] 1.025 (1.005-1.030) 05/08/18 20:00 Urine Protein 30 mg/dL (NEGATIVE) H 05/08/18 20:00 Urine Glucose (UA) NEGATIVE mg/dL (NEGATIVE) 05/08/18 20:00 Urine Ketones NEGATIVE mg/dL (NEGATIVE) 05/08/18 20:00 Urine Blood LARGE (NEGATIVE) H 05/08/18 20:00 Urine Nitrate POSITIVE (NEGATIVE) H 05/08/18 20:00 Urine Bilirubin NEGATIVE (NEGATIVE) 05/08/18 20:00 Urine Urobilinogen 0.2 E.U./dL (0.2 - 1.0) 05/08/18 20:00 Ur Leukocyte Esterase MODERATE (NEGATIVE) H 05/08/18 20:00 Urine RBC 10-25 /hpf (0-5) H 05/08/18 20:00 Urine WBC 25-50 /hpf (0-5) H 05/08/18 20:00 Ur Epithelial Cells FEW /lpf (FEW) 05/08/18 20:00 Urine Bacteria MODERATE /hpf (NONE SEEN) H 05/08/18 20:00 RPR NONREACTIVE (NONREACTIVE) 05/08/18 19:44 - Physical Exam Vitals and I&O: Vital Signs Temp 98.3 F 05/19/18 05:55 Pulse 78 05/19/18 08:19 Resp 20 05/19/18 05:55 BP 146/87 05/19/18 08:19 Pulse Ox 95 05/19/18 05:55 Intake & Output 05/18/18 05/19/18 05/19/18 18:59 06:59 18:59 Intake Total 1600 480 Output Total 1500 500 Balance 100 -20 Intake: Oral 1600 480 Output: Urine 1500 500 Other: # Voids 2 # Bowel Movements 0 Active Medications: Current Medications Acetaminophen (Tylenol) 650 mg PO Q4HR PRN PRN Reason: Mild Pain / Temp above 100 Stop: 07/07/18 23:45 Al Hydrox/Mg Hydrox/Simethicone (Maalox) 30 ml PO Q4HR PRN PRN Reason: GI DISTRESS Stop: 07/07/18 23:45 Amlodipine Besylate (Norvasc) 10 mg PO DAILY GENNA Stop: 07/08/18 08:59 Last Admin: 05/19/18 08:19 Dose: 10 mg Aripiprazole (Abilify) 15 mg PO HS GENNA; Protocol Stop: 07/16/18 20:59 Last Admin: 05/18/18 20:33 Dose: Not Given Lorazepam (Ativan) 1 mg PO Q4H PRN; Protocol PRN Reason: Anxiety Stop: 07/16/18 07:10 Magnesium Hydroxide (Milk Of Magnesia) 30 ml PO HS PRN PRN Reason: Constipation Multivitamins/Vitamin C (Theragran) 1 tab PO DAILY GENNA Stop: 07/08/18 08:59 Last Admin: 05/19/18 08:19 Dose: 1 tab Tamsulosin HCl (Flomax) 0.4 mg PO DAILY GENNA Stop: 07/08/18 08:59 Last Admin: 05/19/18 08:19 Dose: 0.4 mg Tramadol HCl (Ultram) 50 mg PO Q12H PRN PRN Reason: Pain (Moderate) Stop: 07/08/18 07:02 Zolpidem Tartrate (Ambien) 5 mg PO HS PRN PRN Reason: Insomnia Stop: 07/07/18 23:45 General: No acute distress HEENT: Atraumatic, PERRLA Neck: Supple, JVD Cardiovascular: Regular rate, Normal S1, Normal S2 Lungs: Clear to auscultation Abdomen: Bowel sounds Assessment/Plan - Problem List Patient Problems: All Active Problems BPH (benign prostatic hyperplasia) (Acute) N40.0 HTN (hypertension) (Acute) I10 Osteoarthritis (Acute) M19.90 Schizophrenia (Acute) F20.9 - Plan Plan: as per psych will monitor Nutritional Asmnt/Malnutr-PDOC - Dietary Evaluation Malnutrition Findings (Please click <Entered> for more info): Nutritional Asmnt/Malnutrition Start: 05/12/18 15: 03 Text: Status: Complete Freq: Protocol: Document 05/12/18 15:03 LCHENG (Rec: 05/12/18 15:26 LCCRISTINAG [email or web address]) Nutritional Asmnt/Malnutrition Patient General Information Nutritional Screening Moderate Risk Diagnosis psychosis Pertinent Medical Hx/Surgical Hx HTN, fossa cellulitis, hernia, splenectomy Subjective Information Pt seen sleeping in bed at time of visit. Per EMR< PO intake 100% of meals. Current Diet Order/ Nutrition Support cardiac Pertinent Medications theragran Pertinent Labs 05/08 K 3.3, glucose 110, A1c 4 .9, Alb 3.8 05/12 POC 172 Nutritional Hx/Data Height 1.7 m Height (Calculated Centimeters) 170.2 Current Weight (lbs) 72.575 kg Weight (Calculated Kilograms) 72.6 Weight (Calculated Grams) 03393.8 [place] Body Weight 148 Body Mass Index (BMI) 25.0 Weight Status Overweight GI Symptoms GI Symptoms None Last BM 05/11 Difficult in: None Skin Integrity/Comment: rash Current %PO Good (75-100%) Estimated Nutritional Goals BEE in Kcals: Using Current wt Calories/Kcals/Kg - Kcals Calculated 8641-0043 Protein: Using Current wt Protein g/k.8-1 Protein Calculated 58-73 Fluid: ml 1679-1971ml (1ml/kcal) Nutritional Problem 1. Problem Problem altered nutrition related labs Etiology electrolytes imbalance Signs/Symptoms: K 3.3 Malnutrition Alert Is there a minimum of two criteria No selected? Query Text:Check all the applicable criteria. A minimum of two criteria are recommended for diagnosis of either severe or non-severe malnutrition. Malnutrition Related to Morbid Obesity Malnutrition related to morbid obesity No Intervention/Recommendation Comments 1. Continue with current diet as ordered. MD to replace lytes. 2. Monitor PO intake, wt, labs and skin integrity 3. F/U as low risk in 7 days, 05/19 Expected Outcomes/Goals Expected Outcomes/Goals 1. PO intake to meet at least 75% of nutritional needs. 2. Wt stability, skin to remain intact, labs to approach WNL.
--- NOTE | 2018-05-19 18:28 | Progress Notes ---
DATE: 05/19/2018 SUBJECTIVE: The patient in the hospital, agitated, upset, bullying behaviors, unruly behaviors, gets upset with pretty much everybody here including staff, also complaints about the food, mildly aggressive, uncooperative, verbally abusing staff, verbally abusing other residents, very bad for the milieu, labile, suspicious. ASSESSMENT: The patient remains symptomatic, ongoing concerns about his behaviors, had recent dose adjustment of Abilify. The patient is unable to care for himself due to the extent of his disabilities. We will continue to monitor, titrate and adjust medications. We are trying to help him with the safe disposition plan. JOB# [id number]
[2018-05-20] MEDS: Multivitamin Tab PO SCH (09:19)
--- NOTE | 2018-05-20 16:24 | Progress Notes ---
DATE: 05/20/2018 SUBJECTIVE: The patient seems calmer, less agitated, less racist, less prejudiced, less bullying behaviors, making friends with the roommate. The patient seems calmer, less aggressive. Tolerant to treatment, sleeping well, eating well and would like to go to assisted care facility. The patient seems to be tolerating treatment. Sleeping well, eating well. ASSESSMENT: The patient seems to be improving, better oriented, less aggressive, less verbally assaultive toward others, less argumentative. We will continue to monitor. We are attempting to work on placement for the patient while we stabilize him further. He does remain pretty impulsive, unpredictable, but has had a better 24 hours. [facility]# [id number]
[2018-05-21] MEDS: Multivitamin Tab PO SCH (08:22)
--- NOTE | 2018-05-21 15:29 | General Progress Note ---
Subjective - Review of Systems Events since last encounter: patient behavior is improving denies pain Subjective: awake, resting, nad Objective - Results Result Diagrams: 05/08/18 19:44 05/08/18 19:44 Recent Labs: Laboratory Last Values WBC 10.7 Th/cmm (4.8-10.8) 05/08/18 19:44 RBC 5.20 Mil/cmm (3.80-5.80) 05/08/18 19:44 Hgb 15.4 gm/dL (12-16) 05/08/18 19:44 Hct 45.5 % (41.0-60) 05/08/18 19:44 MCV 87.5 fl (80-99) 05/08/18 19:44 MCH 29.6 pg (27.0-31.0) 05/08/18 19:44 MCHC Differential 33.8 pg (28.0-36.0) 05/08/18 19:44 RDW 13.1 % (11.5-20.0) 05/08/18 19:44 Plt Count 234 Th/cmm (150-400) 05/08/18 19:44 MPV 9.2 fl 05/08/18 19:44 Neutrophils % 61.5 % (40.0-80.0) 05/08/18 19:44 Lymphocytes % 24.6 % (20.0-50.0) 05/08/18 19:44 Monocytes % 9.8 % (2.0-10.0) 05/08/18 19:44 Eosinophils % 3.8 % (0.0-5.0) 05/08/18 19:44 Basophils % 0.3 % (0.0-2.0) 05/08/18 19:44 Sodium 136 mEq/L (136-145) 05/08/18 19:44 Potassium 3.3 mEq/L (3.5-5.1) L 05/08/18 19:44 Chloride 104 mEq/L (98-107) 05/08/18 19:44 Carbon Dioxide 23.6 mEq/L (21.0-31.0) 05/08/18 19:44 Anion Gap 11.7 (7.0-16.0) 05/08/18 19:44 BUN 23 mg/dL (7-25) 05/08/18 19:44 Creatinine 1.3 mg/dL (0.7-1.3) 05/08/18 19:44 Est GFR ( Amer) > 60.0 ml/min (>90) 05/08/18 19:44 Est GFR (Non-Af Amer) 58.7 ml/min 05/08/18 19:44 BUN/Creatinine Ratio 17.7 05/08/18 19:44 Glucose 110 mg/dL (70-105) H 05/08/18 19:44 POC Glucose 172 MG/DL (70 - 105) H 05/12/18 11:35 Hemoglobin A1c % 4.9 % (4.0-6.0) 05/08/18 19:44 Calcium 9.3 mg/dL (8.6-10.3) 05/08/18 19:44 Total Bilirubin 0.2 mg/dL (0.3-1.0) L 05/08/18 19:44 AST 15 U/L (13-39) 05/08/18 19:44 ALT 10 U/L (7-52) 05/08/18 19:44 Alkaline Phosphatase 92 U/L (34-104) 05/08/18 19:44 Total Protein 7.6 gm/dL (6.0-8.3) 05/08/18 19:44 Albumin 3.8 gm/dL (4.2-5.5) L 05/08/18 19:44 Globulin 3.8 gm/dL 05/08/18 19:44 Albumin/Globulin Ratio 1.0 (1.0-1.8) 05/08/18 19:44 Triglycerides 210 mg/dL (<150) H 05/08/18 19:44 Cholesterol 201 mg/dL (<200) H 05/08/18 19:44 LDL Cholesterol Direct 134 mg/dL (75-193) 05/08/18 19:44 HDL Cholesterol 37 mg/dL (23-92) 05/08/18 19:44 TSH 1.23 uIU/ml (0.34-5.60) 05/08/18 19:44 Urine Source [place] 05/08/18 20:00 Urine Color YELLOW 05/08/18 20:00 Urine Clarity SLIGHT CLOUDY (CLEAR) 05/08/18 20:00 Urine pH 6.0 (4.6 - 8.0) 05/08/18 20:00 Ur Specific [place] 1.025 (1.005-1.030) 05/08/18 20:00 Urine Protein 30 mg/dL (NEGATIVE) H 05/08/18 20:00 Urine Glucose (UA) NEGATIVE mg/dL (NEGATIVE) 05/08/18 20:00 Urine Ketones NEGATIVE mg/dL (NEGATIVE) 05/08/18 20:00 Urine Blood LARGE (NEGATIVE) H 05/08/18 20:00 Urine Nitrate POSITIVE (NEGATIVE) H 05/08/18 20:00 Urine Bilirubin NEGATIVE (NEGATIVE) 05/08/18 20:00 Urine Urobilinogen 0.2 E.U./dL (0.2 - 1.0) 05/08/18 20:00 Ur Leukocyte Esterase MODERATE (NEGATIVE) H 05/08/18 20:00 Urine RBC 10-25 /hpf (0-5) H 05/08/18 20:00 Urine WBC 25-50 /hpf (0-5) H 05/08/18 20:00 Ur Epithelial Cells FEW /lpf (FEW) 05/08/18 20:00 Urine Bacteria MODERATE /hpf (NONE SEEN) H 05/08/18 20:00 RPR NONREACTIVE (NONREACTIVE) 05/08/18 19:44 - Physical Exam Vitals and I&O: Vital Signs Temp 99.3 F 05/21/18 15:03 Pulse 100 05/21/18 15:03 Resp 20 05/21/18 15:03 BP 135/76 05/21/18 15:03 Pulse Ox 96 05/21/18 15:03 Intake & Output 05/20/18 05/21/18 05/21/18 18:59 06:59 18:59 Intake Total 1600 300 Balance 1600 300 Intake: Oral 1600 300 Other: # Voids 2 # Bowel Movements 0 0 Active Medications: Current Medications Acetaminophen (Tylenol) 650 mg PO Q4HR PRN PRN Reason: Mild Pain / Temp above 100 Stop: 07/07/18 23:45 Al Hydrox/Mg Hydrox/Simethicone (Maalox) 30 ml PO Q4HR PRN PRN Reason: GI DISTRESS Stop: 07/07/18 23:45 Last Admin: 05/20/18 01:00 Dose: 30 ml Amlodipine Besylate (Norvasc) 10 mg PO DAILY [facility] Stop: 07/08/18 08:59 Last Admin: 05/21/18 08:22 Dose: 10 mg Aripiprazole (Abilify) 15 mg PO HS GENNA; Protocol Stop: 07/16/18 20:59 Last Admin: 05/20/18 20:50 Dose: Not Given Lorazepam (Ativan) 1 mg PO Q4H PRN; Protocol PRN Reason: Anxiety Stop: 07/16/18 07:10 Magnesium Hydroxide (Milk Of Magnesia) 30 ml PO HS PRN PRN Reason: Constipation Multivitamins/Vitamin C (Theragran) 1 tab PO DAILY [facility] Stop: 07/08/18 08:59 Last Admin: 05/21/18 08:22 Dose: 1 tab Tamsulosin HCl (Flomax) 0.4 mg PO DAILY [facility] Stop: 07/08/18 08:59 Last Admin: 05/21/18 08:22 Dose: 0.4 mg Tramadol HCl (Ultram) 50 mg PO Q12H PRN PRN Reason: Pain (Moderate) Stop: 07/08/18 07:02 Zolpidem Tartrate (Ambien) 5 mg PO HS PRN PRN Reason: Insomnia Stop: 07/07/18 23:45 General: No acute distress HEENT: Atraumatic, PERRLA Neck: Supple, JVD Cardiovascular: Regular rate, Normal S1, Normal S2 Lungs: Clear to auscultation Abdomen: Bowel sounds Assessment/Plan - Problem List Patient Problems: All Active Problems BPH (benign prostatic hyperplasia) (Acute) N40.0 HTN (hypertension) (Acute) I10 Osteoarthritis (Acute) M19.90 Schizophrenia (Acute) F20.9 - Plan Plan: as per psych will monitor Nutritional Asmnt/Malnutr-PDOC - Dietary Evaluation Malnutrition Findings (Please click <Entered> for more info): Nutritional Asmnt/Malnutrition Start: 05/12/18 15: 03 Text: Status: Complete Freq: Protocol: Document 05/12/18 15:03 LCCRISTINAG (Rec: 05/12/18 15:26 LCCRISTINAG [email or web address]) Nutritional Asmnt/Malnutrition Patient General Information Nutritional Screening Moderate Risk Diagnosis psychosis Pertinent Medical Hx/Surgical Hx HTN, fossa cellulitis, hernia, splenectomy Subjective Information Pt seen sleeping in bed at time of visit. Per EMR< PO intake 100% of meals. Current Diet Order/ Nutrition Support cardiac Pertinent Medications theragran Pertinent Labs 05/08 K 3.3, glucose 110, A1c 4 .9, Alb 3.8 05/12 POC 172 Nutritional Hx/Data Height 1.7 m Height (Calculated Centimeters) 170.2 Current Weight (lbs) 72.575 kg Weight (Calculated Kilograms) 72.6 Weight (Calculated Grams) [address]75.8 [place] Body Weight 148 Body Mass Index (BMI) 25.0 Weight Status Overweight GI Symptoms GI Symptoms None Last BM 05/11 Difficult in: None Skin Integrity/Comment: rash Current %PO Good (75-100%) Estimated Nutritional Goals BEE in Kcals: Using Current wt Calories/Kcals/Kg 23- Kcals Calculated 5271-9821 Protein: Using Current wt Protein g/k.8-1 Protein Calculated 58-73 Fluid: ml 1679-1971ml (1ml/kcal) Nutritional Problem 1. Problem Problem altered nutrition related labs Etiology electrolytes imbalance Signs/Symptoms: K 3.3 Malnutrition Alert Is there a minimum of two criteria No selected? Query Text:Check all the applicable criteria. A minimum of two criteria are recommended for diagnosis of either severe or non-severe malnutrition. Malnutrition Related to Morbid Obesity Malnutrition related to morbid obesity No Intervention/Recommendation Comments 1. Continue with current diet as ordered. MD to replace lytes. 2. Monitor PO intake, wt, labs and skin integrity 3. F/U as low risk in 7 days, 05/19 Expected Outcomes/Goals Expected Outcomes/Goals 1. PO intake to meet at least 75% of nutritional needs. 2. Wt stability, skin to remain intact, labs to approach WNL.
--- NOTE | 2018-05-21 18:21 | Discharge Summary ---
DATE OF DISCHARGE: 05/21/2018 JUSTIFICATION FOR HOSPITALIZATION: Combative behaviors, agitation. HISTORY OF PRESENT ILLNESS: A 67-year-old male admitted to the hospital from [facility], agitated, irritable, hitting others, very upset, combative. PAST PSYCHIATRIC HISTORY: Denies. PAST MEDICAL HISTORY: Noted. SOCIAL HISTORY: The patient is living at a fpc. Please see full H and P. ALLERGIES: CARBAMAZEPINE. MENTAL STATUS EXAMINATION: Please see full psych eval for details. PROVISIONAL DIAGNOSES: Mood, unspecified; anxiety, unspecified; psychosis, unspecified. Under medical, please see full H and P. HOSPITAL COURSE: After initial assessment, the patient did have some history of mental illness, possibly schizoaffective disorder as the hospitalization course progressed, he was irritable, bullying other patients, aggressive at times verbally. However, toward the latter end of his hospitalization, he was noted to be calmer, more cooperative, friendlier, no longer bullying other patients, actually making friends well other patient's, liking his roommate, noted to be sleeping well, eating well. By 05/21/2018, placement was confirmed. He was asymptomatic in regards to any aggressive symptoms, denying any overt sadness, no melancholy, sleeping well, eating well and he was discharged. CONDITION UPON DISCHARGE: Improved, better ADLs, good eye contact. Mood "better." Affect constricted. Thought processes were linear. No SI, no HI, no intent, no plan. No overt psychotic symptoms. Insight and judgment markedly improved, better impulse control. The patient optimistic about the future. DISCHARGE DIAGNOSIS: Schizoaffective disorder per history. Under medical, please see full H and P. PROGNOSES: The patient follows up with outpatient mental health services and remains compliant with treatment. Prognosis will improve, otherwise guarded. JOB# [id number]
[2018-05-22] MEDS: Multivitamin Tab PO SCH (09:04)
--- NOTE | 2018-05-22 10:02 | Progress Notes ---
DATE: 05/22/2018 The patient was to have left yesterday due to issues involving room placements. There was a delay in discharge. The patient linear and engaged, no SI, no HI. No psychotic symptoms, calm, cooperative, friendly, getting along well with staff better, getting along well with other peers, making friends with roommate. Medications were noted. PLAN: We will attempt to discharge the patient today to alf. [facility]# [id number]
--- NOTE | 2018-05-22 11:25 | General Progress Note ---
Subjective - Review of Systems Events since last encounter: patient awake alert comfortable awaiting placement Subjective: awake, resting, nad Objective - Results Result Diagrams: 05/08/18 19:44 05/08/18 19:44 Recent Labs: Laboratory Last Values WBC 10.7 Th/cmm (4.8-10.8) 05/08/18 19:44 RBC 5.20 Mil/cmm (3.80-5.80) 05/08/18 19:44 Hgb 15.4 gm/dL (12-16) 05/08/18 19:44 Hct 45.5 % (41.0-60) 05/08/18 19:44 MCV 87.5 fl (80-99) 05/08/18 19:44 MCH 29.6 pg (27.0-31.0) 05/08/18 19:44 MCHC Differential 33.8 pg (28.0-36.0) 05/08/18 19:44 RDW 13.1 % (11.5-20.0) 05/08/18 19:44 Plt Count 234 Th/cmm (150-400) 05/08/18 19:44 MPV 9.2 fl 05/08/18 19:44 Neutrophils % 61.5 % (40.0-80.0) 05/08/18 19:44 Lymphocytes % 24.6 % (20.0-50.0) 05/08/18 19:44 Monocytes % 9.8 % (2.0-10.0) 05/08/18 19:44 Eosinophils % 3.8 % (0.0-5.0) 05/08/18 19:44 Basophils % 0.3 % (0.0-2.0) 05/08/18 19:44 Sodium 136 mEq/L (136-145) 05/08/18 19:44 Potassium 3.3 mEq/L (3.5-5.1) L 05/08/18 19:44 Chloride 104 mEq/L (98-107) 05/08/18 19:44 Carbon Dioxide 23.6 mEq/L (21.0-31.0) 05/08/18 19:44 Anion Gap 11.7 (7.0-16.0) 05/08/18 19:44 BUN 23 mg/dL (7-25) 05/08/18 19:44 Creatinine 1.3 mg/dL (0.7-1.3) 05/08/18 19:44 Est GFR ( Amer) > 60.0 ml/min (>90) 05/08/18 19:44 Est GFR (Non-Af Amer) 58.7 ml/min 05/08/18 19:44 BUN/Creatinine Ratio 17.7 05/08/18 19:44 Glucose 110 mg/dL (70-105) H 05/08/18 19:44 POC Glucose 172 MG/DL (70 - 105) H 05/12/18 11:35 Hemoglobin A1c % 4.9 % (4.0-6.0) 05/08/18 19:44 Calcium 9.3 mg/dL (8.6-10.3) 05/08/18 19:44 Total Bilirubin 0.2 mg/dL (0.3-1.0) L 05/08/18 19:44 AST 15 U/L (13-39) 05/08/18 19:44 ALT 10 U/L (7-52) 05/08/18 19:44 Alkaline Phosphatase 92 U/L (34-104) 05/08/18 19:44 Total Protein 7.6 gm/dL (6.0-8.3) 05/08/18 19:44 Albumin 3.8 gm/dL (4.2-5.5) L 05/08/18 19:44 Globulin 3.8 gm/dL 05/08/18 19:44 Albumin/Globulin Ratio 1.0 (1.0-1.8) 05/08/18 19:44 Triglycerides 210 mg/dL (<150) H 05/08/18 19:44 Cholesterol 201 mg/dL (<200) H 05/08/18 19:44 LDL Cholesterol Direct 134 mg/dL (75-193) 05/08/18 19:44 HDL Cholesterol 37 mg/dL (23-92) 05/08/18 19:44 TSH 1.23 uIU/ml (0.34-5.60) 05/08/18 19:44 Urine Source [place] 05/08/18 20:00 Urine Color YELLOW 05/08/18 20:00 Urine Clarity SLIGHT CLOUDY (CLEAR) 05/08/18 20:00 Urine pH 6.0 (4.6 - 8.0) 05/08/18 20:00 Ur Specific [place] 1.025 (1.005-1.030) 05/08/18 20:00 Urine Protein 30 mg/dL (NEGATIVE) H 05/08/18 20:00 Urine Glucose (UA) NEGATIVE mg/dL (NEGATIVE) 05/08/18 20:00 Urine Ketones NEGATIVE mg/dL (NEGATIVE) 05/08/18 20:00 Urine Blood LARGE (NEGATIVE) H 05/08/18 20:00 Urine Nitrate POSITIVE (NEGATIVE) H 05/08/18 20:00 Urine Bilirubin NEGATIVE (NEGATIVE) 05/08/18 20:00 Urine Urobilinogen 0.2 E.U./dL (0.2 - 1.0) 05/08/18 20:00 Ur Leukocyte Esterase MODERATE (NEGATIVE) H 05/08/18 20:00 Urine RBC 10-25 /hpf (0-5) H 05/08/18 20:00 Urine WBC 25-50 /hpf (0-5) H 05/08/18 20:00 Ur Epithelial Cells FEW /lpf (FEW) 05/08/18 20:00 Urine Bacteria MODERATE /hpf (NONE SEEN) H 05/08/18 20:00 RPR NONREACTIVE (NONREACTIVE) 05/08/18 19:44 - Physical Exam Vitals and I&O: Vital Signs Temp 97.4 F 05/22/18 06:35 Pulse 62 05/22/18 09:02 Resp 20 05/22/18 06:35 BP 147/61 05/22/18 09:02 Pulse Ox 98 05/22/18 06:35 Intake & Output 05/21/18 05/22/18 05/22/18 18:59 06:59 18:59 Intake Total 1500 120 Output Total 500 Balance 1500 -380 Intake: Oral 1500 120 Output: Urine 500 Other: # Voids 3 # Bowel Movements 0 0 Active Medications: Current Medications Acetaminophen (Tylenol) 650 mg PO Q4HR PRN PRN Reason: Mild Pain / Temp above 100 Stop: 07/07/18 23:45 Al Hydrox/Mg Hydrox/Simethicone (Maalox) 30 ml PO Q4HR PRN PRN Reason: GI DISTRESS Stop: 07/07/18 23:45 Last Admin: 05/20/18 01:00 Dose: 30 ml Amlodipine Besylate (Norvasc) 10 mg PO DAILY [facility] Stop: 07/08/18 08:59 Last Admin: 05/22/18 09:02 Dose: 10 mg Aripiprazole (Abilify) 15 mg PO HS GENNA; Protocol Stop: 07/16/18 20:59 Last Admin: 05/21/18 20:39 Dose: Not Given Lorazepam (Ativan) 1 mg PO Q4H PRN; Protocol PRN Reason: Anxiety Stop: 07/16/18 07:10 Magnesium Hydroxide (Milk Of Magnesia) 30 ml PO HS PRN PRN Reason: Constipation Multivitamins/Vitamin C (Theragran) 1 tab PO DAILY [facility] Stop: 07/08/18 08:59 Last Admin: 05/22/18 09:04 Dose: 1 tab Tamsulosin HCl (Flomax) 0.4 mg PO DAILY [facility] Stop: 07/08/18 08:59 Last Admin: 05/22/18 09:04 Dose: 0.4 mg Tramadol HCl (Ultram) 50 mg PO Q12H PRN PRN Reason: Pain (Moderate) Stop: 07/08/18 07:02 Zolpidem Tartrate (Ambien) 5 mg PO HS PRN PRN Reason: Insomnia Stop: 07/07/18 23:45 General: No acute distress HEENT: Atraumatic, PERRLA Neck: Supple, JVD Cardiovascular: Regular rate, Normal S1, Normal S2 Lungs: Clear to auscultation Abdomen: Bowel sounds Assessment/Plan - Problem List Patient Problems: All Active Problems BPH (benign prostatic hyperplasia) (Acute) N40.0 HTN (hypertension) (Acute) I10 Osteoarthritis (Acute) M19.90 Schizophrenia (Acute) F20.9 - Plan Plan: as per psych will monitor Nutritional Asmnt/Malnutr-PDOC - Dietary Evaluation Malnutrition Findings (Please click <Entered> for more info): Nutritional Asmnt/Malnutrition Start: 05/12/18 15: 03 Text: Status: Complete Freq: Protocol: Document 05/12/18 15:03 LCCRISTINAG (Rec: 05/12/18 15:26 PATELG [email or web address]) Nutritional Asmnt/Malnutrition Patient General Information Nutritional Screening Moderate Risk Diagnosis psychosis Pertinent Medical Hx/Surgical Hx HTN, fossa cellulitis, hernia, splenectomy Subjective Information Pt seen sleeping in bed at time of visit. Per EMR< PO intake 100% of meals. Current Diet Order/ Nutrition Support cardiac Pertinent Medications theragran Pertinent Labs 05/08 K 3.3, glucose 110, A1c 4 .9, Alb 3.8 05/12 POC 172 Nutritional Hx/Data Height 1.7 m Height (Calculated Centimeters) 170.2 Current Weight (lbs) 72.575 kg Weight (Calculated Kilograms) 72.6 Weight (Calculated Grams) 92900.8 [place] Body Weight 148 Body Mass Index (BMI) 25.0 Weight Status Overweight GI Symptoms GI Symptoms None Last BM 05/11 Difficult in: None Skin Integrity/Comment: rash Current %PO Good (75-100%) Estimated Nutritional Goals BEE in Kcals: Using Current wt Calories/Kcals/Kg 23- Kcals Calculated 8813-7535 Protein: Using Current wt Protein g/k.8-1 Protein Calculated 58-73 Fluid: ml 1679-1970ml (1ml/kcal) Nutritional Problem 1. Problem Problem altered nutrition related labs Etiology electrolytes imbalance Signs/Symptoms: K 3.3 Malnutrition Alert Is there a minimum of two criteria No selected? Query Text:Check all the applicable criteria. A minimum of two criteria are recommended for diagnosis of either severe or non-severe malnutrition. Malnutrition Related to Morbid Obesity Malnutrition related to morbid obesity No Intervention/Recommendation Comments 1. Continue with current diet as ordered. MD to replace lytes. 2. Monitor PO intake, wt, labs and skin integrity 3. F/U as low risk in 7 days, 05/19 Expected Outcomes/Goals Expected Outcomes/Goals 1. PO intake to meet at least 75% of nutritional needs. 2. Wt stability, skin to remain intact, labs to approach WNL.
== END 2018-05-22 14:15 | DRG 885 ==
LOC: ER 19:34 → GERO2 21:25
PROVIDERS: ADMIT Psychiatry & Neurology Psychiatry; ATTEND Psychiatry & Neurology Psychiatry
DX: F25.0 Schizoaffective disorder, bipolar type (principal); I10 Essential (primary) hypertension; N40.0 Benign prostatic hyperplasia without lower urinary tract symptoms; E87.6 Hypokalemia; F39 Unspecified mood [affective] disorder; F41.9 Anxiety disorder, unspecified; M19.90 Unspecified osteoarthritis, unspecified site; Z88.8 Allergy status to other drugs, medicaments and biological substances
CPT/HCPCS: 36415-UA; 80053-TC; 80061-TC; 81001-TC; 82948-90; 83036-90; 84443-TC; 85025-TC; 86592-TC; 87086-90; 93005; J1200; J1630; J2060; Z7610

== ENCOUNTER 2018-06-18 15:51 | Inpatient (IN) | payer MEDICARE ==
[2018-06-18 16:16] LABS: % BASOPHILS 0.3 % (0.0-2.0); % EOSINOPHILS 2.4 % (0.0-5.0); % LYMPHOCYTES 16.5 % (20.0-50.0); % MONOCYTES 10.3 % (2.0-10.0); % NEUTROPHILS 70.5 % (40.0-80.0); EOSINOPHILE ABSOLUTE 0.3 Th/cmm (0.1-0.4); HEMATOCRIT 43.8 % (41.0-60); HEMOGLOBIN 14.7 gm/dL (12-16); LYMPHOCYTE ABSOLUTE 1.8 Th/cmm (1.5-3.0); MEAN CELL VOLUME 86.9 fl (80-99); MEAN CORPUSCULAR HEMOGLOBIN 29.2 pg (27.0-31.0); MEAN CORPUSCULAR HGB CONC 33.6 pg (28.0-36.0); MEAN PLATELET VOLUME 8.5 fl; MONOCYTE ABSOLUTE 1.1 Th/cmm (0.3-1.0); NEUTROPHILE ABSOLUTE 7.9 Th/cmm (1.8-8.0); PLATELET COUNT 311 Th/cmm (150-400); RED BLOOD COUNT 5.04 Mil/cmm (3.80-5.80); RED CELL DISTRIBUTION WIDTH 13.1 % (11.5-20.0); WHITE BLOOD COUNT 11.1 Th/cmm (4.8-10.8)
--- NOTE | 2018-06-18 16:24 | ED Physician Chart ---
ED Chief Complaint/HPI - Patient Information Date Seen:: 06/18/18 Time Seen:: 15:50 Chief Complaint:: Agitation History of Present Illness:: onset x 2 days of agitation and aggressive behavior; no report of trauma, SIs, H /As, S/T, neck pain, cough, C/P, SOB, Abd. Pain, A/N/V/D/C, fever, chills, or urinary s/s Allergies:: Allergies Allergy/AdvReac Type Severity Reaction Status Date / Time carbamazepine Allergy Verified 05/08/18 19:36 Historian:: Patient, Friend Review:: Nurse's Note Reviewed, Old Chart Reviewed ED Review of Systems - Review of Systems General/Constitutional: No fever, No chills, No weight loss, No weakness, No diaphoresis, No edema, No loss of appetite Skin: No skin lesions, No rash, No bruising Head: No headache, No light-headedness Eyes: No loss of vision, No pain, No diplopia ENT: No earache, No nasal drainage, No sore throat, No tinnitus Neck: No neck pain, No swelling, No thyromegaly, No stiffness, No mass noted Cardio Vascular: No chest pain, No palpitations, No PND, No orthopnea, No edema Pulmonary: No SOB, No cough, No sputum, No wheezing GI: No nausea, No vomiting, No diarrhea, No pain, No melena, No hematochezia, No constipation, No hematemesis G/U: No dysuria, No frequency, No hematuria, No nacturia Musculoskeletal: No bone or joint pain, No back pain, No muscle pain Endocrine: No polyuria, No polydipsia Psychiatric: Prior psych history, No depression, Anxiety, No suicidal ideation, No homicidal ideation, Auditory hallucination, No visual hallucination Hematopoietic: No bruising, No lymphadenopathy Allergic/Immuno: No urticaria, No angioedema Neurological: No syncope, No focal symptoms, No weakness, No paresthesia, No headache, No seizure, No dizziness, No confusion, No vertigo ED Past Medical History - Past Medical History Obtainable: Yes Past Medical History: HTN, Arthritis Family History: HTN Social History: Non Smoker, No Alcohol, No Drug Use, Single, Care Facility Surgical History: None Psychiatricy History: Schizophrenia, Bipolar Medication: Reviewed Family Medical History - Family Member Mother History Unknown: Yes ED Physical Exam - Physical Examination General/Constitutional: Awake, Well-developed, well-nourished, Alert, No distress, GCS 15, Non-toxic appearing, Ambulatory Head: Atraumatic Eyes: Lids, conjuctiva normal, PERRL, EOMI Skin: Nl inspection, No rash, No skin lesions, No ecchymosis, Well hydrated, No lymphadenopathy ENMT: External ears, nose nl, TM canals nl, Nasal exam nl, Lips, teeth, gums nl , Oropharynx nl, Tonsils nl Neck: Nontender, Full ROM w/o pain, No JVD, No nuchal rigidity, No bruit, No mass, No stridor Respiratory: Nl effort/Exclusion, Clear to Auscultation, No Wheeze/Rhonchi/Rales Cardio Vascular: RRR, No murmur, gallop, rubs, NL S1 S2, Carotid/Femoral/Distal pulses equal bilaterally GI: No tenderness/rebounding/guarding, No organomegaly, No hernia, Normal BS's, Nondistended, No mass/bruits, No McBurney tenderness : No CVA tenderness Extremities: No tenderness or effusion, Full ROM, normal strength in all extremities, No edema, Normal digits & nails Neuro/Psych: Alert/oriented, DTR's symmetric, Normal sensory exam, Normal motor strength, Judgement/insight normal, Mood normal, Normal gait, No focal deficits Other Neuro/Psych comments:: + Psychomotor Agitation; no SIs; Mood/Affect: Labile Misc: Normal back, No paraspinal tenderness ED Labs/Radiology/EKG Results - Lab Results Results: Laboratory Tests 06/18/18 16:10 WBC 11.1 H RBC 5.04 Hgb 14.7 Hct 43.8 MCV 86.9 MCH 29.2 MCHC Differential 33.6 RDW 13.1 Plt Count 311 MPV 8.5 Neutrophils % 70.5 Lymphocytes % 16.5 L Monocytes % 10.3 H Eosinophils % 2.4 Basophils % 0.3 Comments:: Reviewed - EKG Interpretations Rate & Rhythm: 93; NSR Comments:: non-specific st-t changes ED Septic Shock - . Is Septic Shock (SBP<90, OR Lactate>4 mmol\L) present?: No ED Reassessment (Disposition) - Reassessment Reassessment Condition:: Improved - Diagnosis Diagnosis:: Agitation; Medical Clearance; UTI; Schizophrenia; Psychosis - Aftercare/Follow up Instructions Aftercare/Follow-Up Instructions:: Counseled pt regarding lab results/diagnosis & need follow up, Counseled pt & family regarding lab results/diagnosis & need follow up - Patient Disposition Discharge/Transfer:: Acute Care w/in this hosp Admitted to:: [facility] Condition at Disposition:: Stable, Improved
[2018-06-18 16:35] LABS: ALB/GLOB RATIO 0.8 (1.0-1.8); ALBUMIN 3.4 gm/dL (4.2-5.5); ALKALINE PHOSPHATASE 94 U/L (34-104); ANION GAP 12.4 (7.0-16.0); BILIRUBIN,TOTAL 0.2 mg/dL (0.3-1.0); BUN - UREA NITROGEN 23 mg/dL (7-25); CALCIUM SERUM 9.3 mg/dL (8.6-10.3); CARBON DIOXIDE 22.2 mEq/L (21.0-31.0); CHLORIDE 105 mEq/L (98-107); CHOLESTEROL 180 mg/dL (<200); GFR AFRICAN-AMERICAN > 60.0 ml/min (>90); GFR NON AFRICAN-AMERICAN > 60.0 ml/min; GLUCOSE 107 mg/dL (70-105); HDL -HIGH DENSITY LIPOPROTEIN 39 mg/dL (23-92); POTASSIUM SERUM 3.6 mEq/L (3.5-5.1); SGOT 16 U/L (13-39); SGPT/ALT 12 U/L (7-52); SODIUM SERUM 136 mEq/L (136-145); TOTAL PROTEIN,SERUM 7.5 gm/dL (6.0-8.3); TRIGLYCERIDES 213 mg/dL (<150)
[2018-06-18 16:38] LABS: ACETAMINOPHEN < 10.0 ug/mL (10.0-30.0); SALICYLATES (ASPIRIN) < 25.0 mg/L (30.0-100.0)
[2018-06-18 16:55] LABS: URINE SOURCE CLEAN C
[2018-06-18 16:59] LABS: URINE BILIRUBIN NEGATIVE (NEGATIVE); URINE BLOOD LARGE (NEGATIVE); URINE GLUCOSE (UA) NEGATIVE (NEGATIVE); URINE KETONE NEGATIVE (NEGATIVE); URINE LEUKOCYTE ESTERASE SMALL (NEGATIVE); URINE MICROSCOPIC INDICATED? YES; URINE NITRATE NEGATIVE (NEGATIVE); URINE PROTEIN 100 mg/dL (NEGATIVE); URINE UROBILINOGEN 0.2 E.U./dL (0.2 - 1.0)
[2018-06-18 17:01] LABS: URINE CLARITY HAZY (CLEAR); URINE COLOR YELLOW
[2018-06-18 17:04] LABS: URINE EPITHELIAL CELLS FEW /lpf (FEW)
[2018-06-18 17:05] LABS: URINE BACTERIA 1+ /hpf (NONE SEEN)
[2018-06-18 17:14] LABS: AMPHETAMINE URINE NEGATIVE (NEGATIVE); BARBITURATES URINE NEGATIVE (NEGATIVE); BENZODIAZEPINES QUAL URINE NEGATIVE (NEGATIVE); CANNABINOID THC NEGATIVE (NEGATIVE); COCAINE METABOLITE QUAL URINE NEGATIVE (NEGATIVE); METHADONE URINE NEGATIVE (NEGATIVE); METHAMPHETAMINES QUAL URINE NEGATIVE (NEGATIVE); OPIATES (MORPHINE) QUAL. URINE POSITIVE (NEGATIVE); PHENCYCLIDINE (PCP) URINE NEGATIVE (NEGATIVE); TRICYCLICS (TCA) QUAL. URINE NEGATIVE (NEGATIVE)
[2018-06-18] MEDS ORDERED: Sulfamethoxazole/TMP 800/160mg Tab PO ONE (17:56)
[2018-06-18] MEDS ORDERED: Sulfamethoxazole/TMP 800/160mg Tab ONE (18:01)
[2018-06-18] MEDS ORDERED: Magnesium Hydroxide (MOM) 30 mL UDC PO PRN (22:52)
[2018-06-18] MEDS ORDERED: Maalox 30 mL Cup PO PRN (22:52)
[2018-06-18 23:02] VITALS: BP 104/56
[2018-06-19] MEDS ORDERED: SODIUM CHLORIDE 0.45% SUBQ SCH (23:30)
[2018-06-19] MEDS ORDERED: HEPARIN SUBQ SCH (23:30)
[2018-06-19] MEDS ORDERED: [UNRECOGNIZED DRUG - OTHER] SUBQ SCH (23:30)
[2018-06-20] MEDS: Hydrocodone/APAP 5mg/325mg Tab PO PRN (01:10)
--- NOTE | 2018-06-20 02:53 | Psychiatric Evaluation ---
DATE OF SERVICE: 06/18/2018 AGE: 67. SEX: Male. PHYSICIAN: Dr. Thapa. CHIEF COMPLAINT: Agitation and aggressive behavior. HISTORY OF PRESENT ILLNESS: The patient is a 67-year-old male who was recently discharged from the hospital and went to a senior living in [place]. The patient became severely agitated and irritable and aggressive with the staff and he was brought into the hospital. The patient is extremely angry and rambling. The patient said he is angry because "my surgery did not go right." The patient said that he had a prostatic surgery and surgery is not right and he cannot "pee." He also has been extremely irritable and agitated and not able to follow staff directions. The patient also has been somehow suspicious and slightly paranoid. PAST PSYCHIATRIC HISTORY: Multiple psychiatric hospitalizations for what seems to be schizoaffective disorder. PAST MEDICAL HISTORY: The patient has hypertension, arthritis, and is status post prostatic surgery. FAMILY PSYCHIATRIC AND CHEMICAL DEPENDENCY HISTORY: Questionable that mother might have history of psychiatric problems. SOCIAL HISTORY: The patient lives in a senior living in [place]. No known alcohol or drug use. ALLERGIES: No known allergies. MENTAL STATUS EXAMINATION: The patient appears slightly older than his stated age. Anxious. Irritable mood. Angry. Labile affect. Thought processes are circumstantial and tangential with occasional flight of ideas. The patient did not answer questions regarding hallucinations or delusions. He seems to be paranoid. He denies any thoughts of suicide or homicide. The patient is alert and oriented to time, place, person, and situation. Intact immediate, recent and remote memories. Poor insight and poor judgment. Seems to be of average intelligence based on his verbal ability. ASSESSMENT: PRIMARY DIAGNOSES: Schizoaffective disorder, bipolar type, severe, with psychotic features. MEDICAL DIAGNOSES: 1. Arthritis. 2. Hypertension. TREATMENT PLAN: We will monitor the patient's behavior and condition closely. We will start individual as well as milieu psychotherapy. We will adjust and monitor psychotropic medications. ESTIMATED LENGTH OF STAY: 5-7 days. THE PATIENT'S STRENGTHS AND WEAKNESSES: The patient's strength is not clear at this time except that he is compliant with taking his medications. Weaknesses is his poor judgment and ineffective coping and inability to follow directions. AFTER DISCHARGE PLAN: Outpatient treatment and followup will continue as an outpatient. CRITERIA FOR DISCHARGE: The patient will not be psychotic and will stabilize psychotropic medications and we will establish outpatient treatment plans. JOB# [id number]
--- NOTE | 2018-06-20 06:54 | Progress Notes ---
DATE: SUBJECTIVE: Chart reviewed and the patient interviewed. Also discussed the patient's condition with the staff and reviewed the records and labs. The patient is still extremely irritable and angry and the patient is in irritable mood. The patient also is having difficulty following directions. Also, has grandiose delusions and he thinks he can do anything he wants. The patient also is still obsessed with his surgery and accusing staff and hospital and the physician with all his mistakes and focus. Also, still having severe mood swings, but most of the time he is in angry and in irritable mood. He also is still having irritability. ASSESSMENT: The patient is still aggressive and in irritable mood. TREATMENT PLAN: We will monitor his behavior and his condition closely because of his irritability and agitation. Also, we will start the patient on Seroquel 50 mg 3 times a day and the Depakote 500 mg twice a day and we will continue to work on his irritability and poor impulse control as well as behavioral modification. JOB# [id number]
[2018-06-20] MEDS: Multivitamin Tab PO SCH (09:46)
--- NOTE | 2018-06-20 17:33 | History & Physical ---
ADMIT DATE: 06/18/2018 HISTORY OF PRESENT ILLNESS: The patient has a 2-day onset of agitation and aggressive behaviour. He was brought to the [facility] and the patient was admitted for [facility] mental [facility]. REVIEW OF SYSTEMS: As noted, the patient had no fever, no chills, no rigors, no syncope, no other problem. PAST MEDICAL HISTORY: Including hypertension and arrhythmia. PHYSICAL EXAMINATION: GENERAL: Alert, oriented, well developed patient. VITAL SIGNS: As noted in chart. HEAD: Normal. ENT: Normal. NECK: Supple, nontender. LUNGS: Clear. CARDIOVASCULAR SYSTEM: S1, S2 heard. ABDOMEN: Soft. Bowel sounds are heard. CENTRAL NERVOUS SYSTEM: Aggression. DIAGNOSES: Agitation, history of urinary tract infection, schizophrenia, and psychosis. The patient was admitted, was treated for urinary tract infection. I will follow medically and I will follow along with a psychiatrist. JOB# [id number]
[2018-06-21] MEDS: Multivitamin Tab PO SCH (08:45)
--- NOTE | 2018-06-21 10:15 | Progress Notes ---
DATE: 06/21/2018 SUBJECTIVE: The patient was seen in his room. The patient appears to be guarded and irritable. He still gets frustrated. Otherwise, the patient is in no acute distress. OBJECTIVE: VITAL SIGNS: Temperature 97.2, heart rate of 80, blood pressure 138/80, respirations 19, 98% on room air. HEENT: Head is atraumatic and normocephalic. Eyes: Bilateral conjunctivae are clear. Bilateral pupils are equally round and reactive. NECK: Supple. No JVD. CARDIOVASCULAR: S1 and S2 without murmur. PULMONARY: Clear to auscultation. GASTROINTESTINAL: Soft and nontender without guarding. Positive bowel sounds. MUSCULOSKELETAL: No clubbing. No cyanosis noted. ASSESSMENT: 1. Schizoaffective disorder. 2. Osteoarthritis. 3. Hypertension. PLAN: We will keep the patient inpatient Psychiatric Unit and we will follow up with a psychiatrist to monitor the patient's condition and behavior. Treatment plans were discussed with the patient's nurse. Treatment plans were discussed with Dr. Goldsmith. [facility]# [id number]
[2018-06-21] MEDS: Hydrocodone/APAP 5mg/325mg Tab PO PRN (21:40)
--- NOTE | 2018-06-22 00:05 | Progress Notes ---
DATE: 06/21/2018 SUBJECTIVE: Chart reviewed and the patient interviewed. Also, discussed the patient's condition with the staff and reviewed records and labs. The patient is still demanding and he is still in angry and in irritable mood. The patient also is still verbally abusive to staff. The patient also still have grandiose delusions and thought processes are circumstantial and tangential with flight of ideas. The patient also had difficulty sleeping at night and he did not sleep except a couple of hours. He also is using obscene language towards the staff. ASSESSMENT: The patient is still aggressive and is still in an irritable mood and still can be dangerous to others. TREATMENT PLAN: Continue to monitor his behavior and his condition closely. Also, we will increase Seroquel to 50 mg 3 times a day and 100 mg at bedtime and continue Depakote 500 mg twice a day and continue to work on behavioral modification. JOB# [id number]
--- NOTE | 2018-06-22 08:58 | General Progress Note ---
Subjective - Review of Systems Events since last encounter: still irritable confused dangerous to others Objective - Results Result Diagrams: 06/18/18 16:10 06/18/18 16:10 Recent Labs: Laboratory Last Values WBC 11.1 Th/cmm (4.8-10.8) H 06/18/18 16:10 RBC 5.04 Mil/cmm (3.80-5.80) 06/18/18 16:10 Hgb 14.7 gm/dL (12-16) 06/18/18 16:10 Hct 43.8 % (41.0-60) 06/18/18 16:10 MCV 86.9 fl (80-99) 06/18/18 16:10 MCH 29.2 pg (27.0-31.0) 06/18/18 16:10 MCHC Differential 33.6 pg (28.0-36.0) 06/18/18 16:10 RDW 13.1 % (11.5-20.0) 06/18/18 16:10 Plt Count 311 Th/cmm (150-400) 06/18/18 16:10 MPV 8.5 fl 06/18/18 16:10 Neutrophils % 70.5 % (40.0-80.0) 06/18/18 16:10 Lymphocytes % 16.5 % (20.0-50.0) L 06/18/18 16:10 Monocytes % 10.3 % (2.0-10.0) H 06/18/18 16:10 Eosinophils % 2.4 % (0.0-5.0) 06/18/18 16:10 Basophils % 0.3 % (0.0-2.0) 06/18/18 16:10 Sodium 136 mEq/L (136-145) 06/18/18 16:10 Potassium 3.6 mEq/L (3.5-5.1) 06/18/18 16:10 Chloride 105 mEq/L (98-107) 06/18/18 16:10 Carbon Dioxide 22.2 mEq/L (21.0-31.0) 06/18/18 16:10 Anion Gap 12.4 (7.0-16.0) 06/18/18 16:10 BUN 23 mg/dL (7-25) 06/18/18 16:10 Creatinine 1.0 mg/dL (0.7-1.3) 06/18/18 16:10 Est GFR ( Amer) > 60.0 ml/min (>90) 06/18/18 16:10 Est GFR (Non-Af Amer) > 60.0 ml/min 06/18/18 16:10 BUN/Creatinine Ratio 23.0 06/18/18 16:10 Glucose 107 mg/dL (70-105) H 06/18/18 16:10 Calcium 9.3 mg/dL (8.6-10.3) 06/18/18 16:10 Total Bilirubin 0.2 mg/dL (0.3-1.0) L 06/18/18 16:10 AST 16 U/L (13-39) 06/18/18 16:10 ALT 12 U/L (7-52) 06/18/18 16:10 Alkaline Phosphatase 94 U/L (34-104) 06/18/18 16:10 Troponin I 0.01 ng/mL (0.01-0.05) 06/18/18 16:10 Total Protein 7.5 gm/dL (6.0-8.3) 06/18/18 16:10 Albumin 3.4 gm/dL (4.2-5.5) L 06/18/18 16:10 Globulin 4.1 gm/dL 06/18/18 16:10 Albumin/Globulin Ratio 0.8 (1.0-1.8) L 06/18/18 16:10 Triglycerides 213 mg/dL (<150) H 06/18/18 16:10 Cholesterol 180 mg/dL (<200) 06/18/18 16:10 LDL Cholesterol Direct 118 mg/dL (75-193) 06/18/18 16:10 HDL Cholesterol 39 mg/dL (23-92) 06/18/18 16:10 TSH 0.73 uIU/ml (0.34-5.60) 06/18/18 16:10 Urine Source CLEAN C 06/18/18 16:15 Urine Color YELLOW 06/18/18 16:15 Urine Clarity HAZY (CLEAR) 06/18/18 16:15 Urine pH 6.0 (4.6 - 8.0) 06/18/18 16:15 Ur Specific [place] 1.025 (1.005-1.030) 06/18/18 16:15 Urine Protein 100 mg/dL (NEGATIVE) H 06/18/18 16:15 Urine Glucose (UA) NEGATIVE mg/dL (NEGATIVE) 06/18/18 16:15 Urine Ketones NEGATIVE mg/dL (NEGATIVE) 06/18/18 16:15 Urine Blood LARGE (NEGATIVE) H 06/18/18 16:15 Urine Nitrate NEGATIVE (NEGATIVE) 06/18/18 16:15 Urine Bilirubin NEGATIVE (NEGATIVE) 06/18/18 16:15 Urine Urobilinogen 0.2 E.U./dL (0.2 - 1.0) 06/18/18 16:15 Ur Leukocyte Esterase SMALL (NEGATIVE) H 06/18/18 16:15 Urine RBC 10-25 /hpf (0-5) H 06/18/18 16:15 Urine WBC 6-10 /hpf (0-5) 06/18/18 16:15 Ur Epithelial Cells FEW /lpf (FEW) 06/18/18 16:15 Urine Bacteria 1+ /hpf (NONE SEEN) H 06/18/18 16:15 Salicylates < 25.0 mg/L (30.0-100.0) L 06/18/18 16:10 Urine Opiates Screen POSITIVE (NEGATIVE) H 06/18/18 16:15 Urine Methadone Screen NEGATIVE (NEGATIVE) 06/18/18 16:15 Acetaminophen < 10.0 ug/mL (10.0-30.0) L 06/18/18 16:10 Ur Barbiturates Screen NEGATIVE (NEGATIVE) 06/18/18 16:15 Ur Tricyclics Screen NEGATIVE (NEGATIVE) 06/18/18 16:15 Ur Phencyclidine Scrn NEGATIVE (NEGATIVE) 06/18/18 16:15 Amphetamines Screen NEGATIVE (NEGATIVE) 06/18/18 16:15 U Methamphetamines Scrn NEGATIVE (NEGATIVE) 06/18/18 16:15 U Benzodiazepines Scrn NEGATIVE (NEGATIVE) 06/18/18 16:15 U Cocaine Metab Screen NEGATIVE (NEGATIVE) 06/18/18 16:15 U Cannabinoids Screen NEGATIVE (NEGATIVE) 06/18/18 16:15 Ethyl Alcohol < 10 mg/dL (0-10) 06/18/18 16:10 RPR NONREACTIVE (NONREACTIVE) 06/18/18 16:10 - Physical Exam Vitals and I&O: Vital Signs Temp 97.7 F 06/21/18 20:00 Pulse 104 06/21/18 20:00 Resp 20 06/21/18 20:00 BP 154/88 06/21/18 20:00 Pulse Ox 96 06/21/18 20:00 Intake & Output 06/21/18 06/22/18 06/22/18 18:59 06:59 18:59 Intake Total 900 120 Balance 900 120 Intake: Oral 900 120 Other: # Voids 4 3 # Bowel Movements 1 Active Medications: Current Medications Acetaminophen (Tylenol) 650 mg PO Q4HR PRN PRN Reason: Pain or Fever >101 Stop: 08/18/18 23:28 Acetaminophen/Hydrocodone Bitart ([place] 5mg/325mg) 1 tab PO Q6H PRN PRN Reason: Pain (Moderate) Stop: 08/18/18 23:28 Last Admin: 06/21/18 21:40 Dose: 1 tab Al Hydrox/Mg Hydrox/Simethicone (Maalox) 30 ml PO Q4HR PRN PRN Reason: GI DISTRESS Stop: 08/17/18 22:51 Amlodipine Besylate (Norvasc) 10 mg PO DAILY [facility] Stop: 08/19/18 08:59 Last Admin: 06/21/18 08:46 Dose: 10 mg Bisacodyl (Dulcolax 5 Mg Ec Tab) 10 mg PO Q12H PRN PRN Reason: Constipation Stop: 08/18/18 23:28 Bisacodyl (Dulcolax 10 Mg Supp) 10 mg RC Q12H PRN PRN Reason: Constipation Stop: 08/18/18 23:28 Divalproex Sodium (Depakote Dr) 500 mg PO BID [facility]; Protocol Stop: 08/19/18 08:59 Last Admin: 06/21/18 16:14 Dose: 500 mg Docusate Sodium (Colace) 100 mg PO Q12H PRN PRN Reason: Constipation Stop: 08/18/18 23:28 Hydralazine HCl (Apresoline) 25 mg PO Q8H PRN PRN Reason: high blood pressure Stop: 08/18/18 23:28 Levofloxacin (Levaquin) 500 mg PO DAILY [facility] Stop: 08/19/18 13:59 Last Admin: 06/21/18 08:45 Dose: 500 mg Lorazepam (Ativan) 0.5 mg PO Q4HR PRN; Protocol PRN Reason: Anxiety Stop: 07/18/18 18:59 Magnesium Hydroxide (Milk Of Magnesia) 30 ml PO HS PRN PRN Reason: Constipation Multivitamins/Vitamin C (Theragran) 1 tab PO DAILY [facility] Stop: 08/19/18 08:59 Last Admin: 06/21/18 08:45 Dose: 1 tab Ondansetron HCl (Zofran Odt) 4 mg PO Q4HR PRN PRN Reason: nausea/vomiting Stop: 08/18/18 23:28 Quetiapine Fumarate (Seroquel) 50 mg PO TID [facility]; Protocol Stop: 08/19/18 08:59 Last Admin: 06/21/18 21:26 Dose: Not Given Quetiapine Fumarate (Seroquel) 100 mg PO HS [facility]; Protocol Stop: 08/20/18 20:59 Last Admin: 06/21/18 21:26 Dose: Not Given Tamsulosin HCl (Flomax) 0.4 mg PO BID [facility] Stop: 08/19/18 08:59 Last Admin: 06/21/18 16:14 Dose: 0.4 mg Zolpidem Tartrate (Ambien) 5 mg PO HS PRN PRN Reason: Insomnia Stop: 08/17/18 22:51 Last Admin: 06/20/18 20:31 Dose: 5 mg
[2018-06-22] MEDS: Multivitamin Tab PO SCH (09:56)
[2018-06-22] MEDS ORDERED: Probiotic Screen MC PRN (14:40)
[2018-06-22] MEDS: Lactobacillus Rhamnosus GG 15 Billion CFU CAP.SPRINK PO SCH (16:00)
--- NOTE | 2018-06-22 17:01 | Progress Notes ---
DATE: 06/22/2018 PSYCHIATRIC PROGRESS NOTE SUBJECTIVE: Chart reviewed and the patient interviewed. Also discussed the patient's condition with the staff and reviewed records and labs. The patient remains in angry and in irritable mood. The patient also is guarded. The patient also still having severe mood swings and he is verbally abusive to staff and threatening staff. The patient also is refusing to take medications and advised the patient to take his medications regularly. The patient also is suspicious, paranoid, and demanding. Otherwise, the patient still has difficulty following directions and needs close monitoring. ASSESSMENT: The patient is still agitated and can be dangerous to others. TREATMENT PLAN: Continue to monitor his behavior and his condition and continue to work on behavioral modification and on his irritability and agitation. JOB# [id number]
[2018-06-23] MEDS: Hydrocodone/APAP 5mg/325mg Tab PO PRN (01:54)
[2018-06-23] MEDS: Multivitamin Tab PO SCH (09:25)
[2018-06-23] MEDS: Lactobacillus Rhamnosus GG 15 Billion CFU CAP.SPRINK PO SCH (09:25)
--- NOTE | 2018-06-23 11:36 | General Progress Note ---
Subjective - Review of Systems Events since last encounter: patent easily agitated not sable Objective - Results Result Diagrams: 06/18/18 16:10 06/18/18 16:10 Recent Labs: Laboratory Last Values WBC 11.1 Th/cmm (4.8-10.8) H 06/18/18 16:10 RBC 5.04 Mil/cmm (3.80-5.80) 06/18/18 16:10 Hgb 14.7 gm/dL (12-16) 06/18/18 16:10 Hct 43.8 % (41.0-60) 06/18/18 16:10 MCV 86.9 fl (80-99) 06/18/18 16:10 MCH 29.2 pg (27.0-31.0) 06/18/18 16:10 MCHC Differential 33.6 pg (28.0-36.0) 06/18/18 16:10 RDW 13.1 % (11.5-20.0) 06/18/18 16:10 Plt Count 311 Th/cmm (150-400) 06/18/18 16:10 MPV 8.5 fl 06/18/18 16:10 Neutrophils % 70.5 % (40.0-80.0) 06/18/18 16:10 Lymphocytes % 16.5 % (20.0-50.0) L 06/18/18 16:10 Monocytes % 10.3 % (2.0-10.0) H 06/18/18 16:10 Eosinophils % 2.4 % (0.0-5.0) 06/18/18 16:10 Basophils % 0.3 % (0.0-2.0) 06/18/18 16:10 Sodium 136 mEq/L (136-145) 06/18/18 16:10 Potassium 3.6 mEq/L (3.5-5.1) 06/18/18 16:10 Chloride 105 mEq/L (98-107) 06/18/18 16:10 Carbon Dioxide 22.2 mEq/L (21.0-31.0) 06/18/18 16:10 Anion Gap 12.4 (7.0-16.0) 06/18/18 16:10 BUN 23 mg/dL (7-25) 06/18/18 16:10 Creatinine 1.0 mg/dL (0.7-1.3) 06/18/18 16:10 Est GFR ( Amer) > 60.0 ml/min (>90) 06/18/18 16:10 Est GFR (Non-Af Amer) > 60.0 ml/min 06/18/18 16:10 BUN/Creatinine Ratio 23.0 06/18/18 16:10 Glucose 107 mg/dL (70-105) H 06/18/18 16:10 Calcium 9.3 mg/dL (8.6-10.3) 06/18/18 16:10 Total Bilirubin 0.2 mg/dL (0.3-1.0) L 06/18/18 16:10 AST 16 U/L (13-39) 06/18/18 16:10 ALT 12 U/L (7-52) 06/18/18 16:10 Alkaline Phosphatase 94 U/L (34-104) 06/18/18 16:10 Troponin I 0.01 ng/mL (0.01-0.05) 06/18/18 16:10 Total Protein 7.5 gm/dL (6.0-8.3) 06/18/18 16:10 Albumin 3.4 gm/dL (4.2-5.5) L 06/18/18 16:10 Globulin 4.1 gm/dL 06/18/18 16:10 Albumin/Globulin Ratio 0.8 (1.0-1.8) L 06/18/18 16:10 Triglycerides 213 mg/dL (<150) H 06/18/18 16:10 Cholesterol 180 mg/dL (<200) 06/18/18 16:10 LDL Cholesterol Direct 118 mg/dL (75-193) 06/18/18 16:10 HDL Cholesterol 39 mg/dL (23-92) 06/18/18 16:10 TSH 0.73 uIU/ml (0.34-5.60) 06/18/18 16:10 Urine Source CLEAN C 06/18/18 16:15 Urine Color YELLOW 06/18/18 16:15 Urine Clarity HAZY (CLEAR) 06/18/18 16:15 Urine pH 6.0 (4.6 - 8.0) 06/18/18 16:15 Ur Specific [place] 1.025 (1.005-1.030) 06/18/18 16:15 Urine Protein 100 mg/dL (NEGATIVE) H 06/18/18 16:15 Urine Glucose (UA) NEGATIVE mg/dL (NEGATIVE) 06/18/18 16:15 Urine Ketones NEGATIVE mg/dL (NEGATIVE) 06/18/18 16:15 Urine Blood LARGE (NEGATIVE) H 06/18/18 16:15 Urine Nitrate NEGATIVE (NEGATIVE) 06/18/18 16:15 Urine Bilirubin NEGATIVE (NEGATIVE) 06/18/18 16:15 Urine Urobilinogen 0.2 E.U./dL (0.2 - 1.0) 06/18/18 16:15 Ur Leukocyte Esterase SMALL (NEGATIVE) H 06/18/18 16:15 Urine RBC 10-25 /hpf (0-5) H 06/18/18 16:15 Urine WBC 6-10 /hpf (0-5) 06/18/18 16:15 Ur Epithelial Cells FEW /lpf (FEW) 06/18/18 16:15 Urine Bacteria 1+ /hpf (NONE SEEN) H 06/18/18 16:15 Salicylates < 25.0 mg/L (30.0-100.0) L 06/18/18 16:10 Urine Opiates Screen POSITIVE (NEGATIVE) H 06/18/18 16:15 Urine Methadone Screen NEGATIVE (NEGATIVE) 06/18/18 16:15 Acetaminophen < 10.0 ug/mL (10.0-30.0) L 06/18/18 16:10 Ur Barbiturates Screen NEGATIVE (NEGATIVE) 06/18/18 16:15 Ur Tricyclics Screen NEGATIVE (NEGATIVE) 06/18/18 16:15 Ur Phencyclidine Scrn NEGATIVE (NEGATIVE) 06/18/18 16:15 Amphetamines Screen NEGATIVE (NEGATIVE) 06/18/18 16:15 U Methamphetamines Scrn NEGATIVE (NEGATIVE) 06/18/18 16:15 U Benzodiazepines Scrn NEGATIVE (NEGATIVE) 06/18/18 16:15 U Cocaine Metab Screen NEGATIVE (NEGATIVE) 06/18/18 16:15 U Cannabinoids Screen NEGATIVE (NEGATIVE) 06/18/18 16:15 Ethyl Alcohol < 10 mg/dL (0-10) 06/18/18 16:10 RPR NONREACTIVE (NONREACTIVE) 06/18/18 16:10 - Physical Exam Vitals and I&O: Vital Signs Temp 98.2 F 06/22/18 20:00 Pulse 72 06/23/18 09:24 Resp 19 06/22/18 20:00 BP 118/75 06/23/18 09:24 Pulse Ox 96 06/22/18 20:00 Intake & Output 06/22/18 06/23/18 06/23/18 18:59 06:59 18:59 Intake Total 1800 120 Balance 1800 120 Intake: Oral 1800 120 Other: # Voids 4 3 # Bowel Movements 1 Active Medications: Current Medications Acetaminophen (Tylenol) 650 mg PO Q4HR PRN PRN Reason: Pain or Fever >101 Stop: 08/18/18 23:28 Acetaminophen/Hydrocodone Bitart ([place] 5mg/325mg) 1 tab PO Q6H PRN PRN Reason: Pain (Moderate) Stop: 08/18/18 23:28 Last Admin: 06/23/18 01:54 Dose: 1 tab Al Hydrox/Mg Hydrox/Simethicone (Maalox) 30 ml PO Q4HR PRN PRN Reason: GI DISTRESS Stop: 08/17/18 22:51 Amlodipine Besylate (Norvasc) 10 mg PO DAILY [facility] Stop: 08/19/18 08:59 Last Admin: 06/23/18 09:24 Dose: 10 mg Bisacodyl (Dulcolax 5 Mg Ec Tab) 10 mg PO Q12H PRN PRN Reason: Constipation Stop: 08/18/18 23:28 Bisacodyl (Dulcolax 10 Mg Supp) 10 mg RC Q12H PRN PRN Reason: Constipation Stop: 08/18/18 23:28 Divalproex Sodium (Depakote Dr) 500 mg PO BID [facility]; Protocol Stop: 08/19/18 08:59 Last Admin: 06/23/18 09:25 Dose: Not Given Docusate Sodium (Colace) 100 mg PO Q12H PRN PRN Reason: Constipation Stop: 08/18/18 23:28 Hydralazine HCl (Apresoline) 25 mg PO Q8H PRN PRN Reason: high blood pressure Stop: 08/18/18 23:28 Lactobacillus Rhamnosus (Culturelle 15b) 1 each PO DAILY [facility] Stop: 08/21/18 14:59 Last Admin: 06/23/18 09:25 Dose: 1 each Levofloxacin (Levaquin) 500 mg PO DAILY [facility] Stop: 08/19/18 13:59 Last Admin: 06/23/18 09:25 Dose: 500 mg Lorazepam (Ativan) 0.5 mg PO Q4HR PRN; Protocol PRN Reason: Anxiety Stop: 07/18/18 18:59 Magnesium Hydroxide (Milk Of Magnesia) 30 ml PO HS PRN PRN Reason: Constipation Miscellaneous (Probiotic Screen) 1 ea [facility] PRN PRN PRN Reason: PROTOCOL Stop: 08/21/18 14:39 Multivitamins/Vitamin C (Theragran) 1 tab PO DAILY [facility] Stop: 08/19/18 08:59 Last Admin: 06/23/18 09:25 Dose: 1 tab Ondansetron HCl (Zofran Odt) 4 mg PO Q4HR PRN PRN Reason: nausea/vomiting Stop: 08/18/18 23:28 Quetiapine Fumarate (Seroquel) 75 mg PO TID [facility]; Protocol Stop: 08/22/18 13:59 Quetiapine Fumarate (Seroquel) 150 mg PO HS [facility]; Protocol Stop: 08/22/18 20:59 Tamsulosin HCl (Flomax) 0.4 mg PO BID [facility] Stop: 08/19/18 08:59 Last Admin: 06/23/18 09:24 Dose: 0.4 mg Zolpidem Tartrate (Ambien) 5 mg PO HS PRN PRN Reason: Insomnia Stop: 08/17/18 22:51 Last Admin: 06/20/18 20:31 Dose: 5 mg
--- NOTE | 2018-06-24 02:23 | Progress Notes ---
DATE: SUBJECTIVE: Chart reviewed and the patient interviewed. Also discussed the patient's condition with the staff and reviewed records and labs. The patient continued to be in severely irritable mood and he is still using foul language and has a conversation. Also, is still reluctant to take some of the medications. The patient also is still restless and he still has severe mood swings and severe anxiety. The patient also is abusive to staff and abusive to others. Also, his thought processes are circumstantial with occasional flight of ideas. ASSESSMENT: The patient is still yelling and screaming and still have issues with his anger and irritability. TREATMENT PLAN: Continue to monitor his behavior and his condition closely. Also, we will increase Seroquel to 75 mg 3 times a day and 150 mg at bedtime. We will continue to follow up with his behavior and his irritability closely. JOB# [id number]
[2018-06-24] MEDS: Lactobacillus Rhamnosus GG 15 Billion CFU CAP.SPRINK PO SCH (08:52)
[2018-06-24] MEDS: Multivitamin Tab PO SCH (08:53)
--- NOTE | 2018-06-24 12:15 | Internal Medicine Prog Note ---
Internal Medicine Subjective - Subjective Service Date: 06/24/18 Patient seen and examined:: with staff Patient is:: awake Per staff patient has:: tolerating meds Internal Medicine Objective - Results Result Diagrams: 06/18/18 16:10 06/18/18 16:10 Recent Labs: Laboratory Last Values WBC 11.1 Th/cmm (4.8-10.8) H 06/18/18 16:10 RBC 5.04 Mil/cmm (3.80-5.80) 06/18/18 16:10 Hgb 14.7 gm/dL (12-16) 06/18/18 16:10 Hct 43.8 % (41.0-60) 06/18/18 16:10 MCV 86.9 fl (80-99) 06/18/18 16:10 MCH 29.2 pg (27.0-31.0) 06/18/18 16:10 MCHC Differential 33.6 pg (28.0-36.0) 06/18/18 16:10 RDW 13.1 % (11.5-20.0) 06/18/18 16:10 Plt Count 311 Th/cmm (150-400) 06/18/18 16:10 MPV 8.5 fl 06/18/18 16:10 Neutrophils % 70.5 % (40.0-80.0) 06/18/18 16:10 Lymphocytes % 16.5 % (20.0-50.0) L 06/18/18 16:10 Monocytes % 10.3 % (2.0-10.0) H 06/18/18 16:10 Eosinophils % 2.4 % (0.0-5.0) 06/18/18 16:10 Basophils % 0.3 % (0.0-2.0) 06/18/18 16:10 Sodium 136 mEq/L (136-145) 06/18/18 16:10 Potassium 3.6 mEq/L (3.5-5.1) 06/18/18 16:10 Chloride 105 mEq/L (98-107) 06/18/18 16:10 Carbon Dioxide 22.2 mEq/L (21.0-31.0) 06/18/18 16:10 Anion Gap 12.4 (7.0-16.0) 06/18/18 16:10 BUN 23 mg/dL (7-25) 06/18/18 16:10 Creatinine 1.0 mg/dL (0.7-1.3) 06/18/18 16:10 Est GFR ( Amer) > 60.0 ml/min (>90) 06/18/18 16:10 Est GFR (Non-Af Amer) > 60.0 ml/min 06/18/18 16:10 BUN/Creatinine Ratio 23.0 06/18/18 16:10 Glucose 107 mg/dL (70-105) H 06/18/18 16:10 Calcium 9.3 mg/dL (8.6-10.3) 06/18/18 16:10 Total Bilirubin 0.2 mg/dL (0.3-1.0) L 06/18/18 16:10 AST 16 U/L (13-39) 06/18/18 16:10 ALT 12 U/L (7-52) 06/18/18 16:10 Alkaline Phosphatase 94 U/L (34-104) 06/18/18 16:10 Troponin I 0.01 ng/mL (0.01-0.05) 06/18/18 16:10 Total Protein 7.5 gm/dL (6.0-8.3) 06/18/18 16:10 Albumin 3.4 gm/dL (4.2-5.5) L 06/18/18 16:10 Globulin 4.1 gm/dL 06/18/18 16:10 Albumin/Globulin Ratio 0.8 (1.0-1.8) L 06/18/18 16:10 Triglycerides 213 mg/dL (<150) H 06/18/18 16:10 Cholesterol 180 mg/dL (<200) 06/18/18 16:10 LDL Cholesterol Direct 118 mg/dL (75-193) 06/18/18 16:10 HDL Cholesterol 39 mg/dL (23-92) 06/18/18 16:10 TSH 0.73 uIU/ml (0.34-5.60) 06/18/18 16:10 Urine Source CLEAN C 06/18/18 16:15 Urine Color YELLOW 06/18/18 16:15 Urine Clarity HAZY (CLEAR) 06/18/18 16:15 Urine pH 6.0 (4.6 - 8.0) 06/18/18 16:15 Ur Specific [place] 1.025 (1.005-1.030) 06/18/18 16:15 Urine Protein 100 mg/dL (NEGATIVE) H 06/18/18 16:15 Urine Glucose (UA) NEGATIVE mg/dL (NEGATIVE) 06/18/18 16:15 Urine Ketones NEGATIVE mg/dL (NEGATIVE) 06/18/18 16:15 Urine Blood LARGE (NEGATIVE) H 06/18/18 16:15 Urine Nitrate NEGATIVE (NEGATIVE) 06/18/18 16:15 Urine Bilirubin NEGATIVE (NEGATIVE) 06/18/18 16:15 Urine Urobilinogen 0.2 E.U./dL (0.2 - 1.0) 06/18/18 16:15 Ur Leukocyte Esterase SMALL (NEGATIVE) H 06/18/18 16:15 Urine RBC 10-25 /hpf (0-5) H 06/18/18 16:15 Urine WBC 6-10 /hpf (0-5) 06/18/18 16:15 Ur Epithelial Cells FEW /lpf (FEW) 06/18/18 16:15 Urine Bacteria 1+ /hpf (NONE SEEN) H 06/18/18 16:15 Salicylates < 25.0 mg/L (30.0-100.0) L 06/18/18 16:10 Urine Opiates Screen POSITIVE (NEGATIVE) H 06/18/18 16:15 Urine Methadone Screen NEGATIVE (NEGATIVE) 06/18/18 16:15 Acetaminophen < 10.0 ug/mL (10.0-30.0) L 06/18/18 16:10 Ur Barbiturates Screen NEGATIVE (NEGATIVE) 06/18/18 16:15 Ur Tricyclics Screen NEGATIVE (NEGATIVE) 06/18/18 16:15 Ur Phencyclidine Scrn NEGATIVE (NEGATIVE) 06/18/18 16:15 Amphetamines Screen NEGATIVE (NEGATIVE) 06/18/18 16:15 U Methamphetamines Scrn NEGATIVE (NEGATIVE) 06/18/18 16:15 U Benzodiazepines Scrn NEGATIVE (NEGATIVE) 06/18/18 16:15 U Cocaine Metab Screen NEGATIVE (NEGATIVE) 06/18/18 16:15 U Cannabinoids Screen NEGATIVE (NEGATIVE) 06/18/18 16:15 Ethyl Alcohol < 10 mg/dL (0-10) 06/18/18 16:10 RPR NONREACTIVE (NONREACTIVE) 06/18/18 16:10 - Physical Exam Vitals and I&O: Vital Signs Temp 98.1 F 06/23/18 20:18 Pulse 72 06/24/18 08:52 Resp 20 06/23/18 20:18 BP 162/85 06/24/18 08:52 Pulse Ox 95 06/23/18 20:18 Intake & Output 06/23/18 06/24/18 06/24/18 18:59 06:59 18:59 Intake Total 1320 Balance 1320 Intake: Oral 1320 Other: # Voids 4 # Bowel Movements 1 Active Medications: Current Medications Acetaminophen (Tylenol) 650 mg PO Q4HR PRN PRN Reason: Pain or Fever >101 Stop: 08/18/18 23:28 Acetaminophen/Hydrocodone Bitart ([place] 5mg/325mg) 1 tab PO Q6H PRN PRN Reason: Pain (Moderate) Stop: 08/18/18 23:28 Last Admin: 06/23/18 01:54 Dose: 1 tab Al Hydrox/Mg Hydrox/Simethicone (Maalox) 30 ml PO Q4HR PRN PRN Reason: GI DISTRESS Stop: 08/17/18 22:51 Amlodipine Besylate (Norvasc) 10 mg PO DAILY [facility] Stop: 08/19/18 08:59 Last Admin: 06/24/18 08:52 Dose: 10 mg Bisacodyl (Dulcolax 5 Mg Ec Tab) 10 mg PO Q12H PRN PRN Reason: Constipation Stop: 08/18/18 23:28 Bisacodyl (Dulcolax 10 Mg Supp) 10 mg RC Q12H PRN PRN Reason: Constipation Stop: 08/18/18 23:28 Divalproex Sodium (Depakote Dr) 500 mg PO BID [facility]; Protocol Stop: 08/19/18 08:59 Last Admin: 06/24/18 08:52 Dose: 500 mg Docusate Sodium (Colace) 100 mg PO Q12H PRN PRN Reason: Constipation Stop: 08/18/18 23:28 Hydralazine HCl (Apresoline) 25 mg PO Q8H PRN PRN Reason: high blood pressure Stop: 08/18/18 23:28 Lactobacillus Rhamnosus (Culturelle 15b) 1 each PO DAILY [facility] Stop: 08/21/18 14:59 Last Admin: 10/09/18 08:52 Dose: 1 each Levofloxacin (Levaquin) 500 mg PO DAILY [facility] Stop: 08/19/18 13:59 Last Admin: 06/24/18 08:53 Dose: 500 mg Lorazepam (Ativan) 0.5 mg PO Q4HR PRN; Protocol PRN Reason: Anxiety Stop: 07/18/18 18:59 Magnesium Hydroxide (Milk Of Magnesia) 30 ml PO HS PRN PRN Reason: Constipation Miscellaneous (Probiotic Screen) 1 ea MC PRN PRN PRN Reason: PROTOCOL Stop: 08/21/18 14:39 Multivitamins/Vitamin C (Theragran) 1 tab PO DAILY [facility] Stop: 08/19/18 08:59 Last Admin: 06/24/18 08:53 Dose: 1 tab Ondansetron HCl (Zofran Odt) 4 mg PO Q4HR PRN PRN Reason: nausea/vomiting Stop: 08/18/18 23:28 Quetiapine Fumarate (Seroquel) 75 mg PO TID [facility]; Protocol Stop: 08/22/18 13:59 Last Admin: 06/24/18 08:53 Dose: 75 mg Quetiapine Fumarate (Seroquel) 150 mg PO HS [facility]; Protocol Stop: 08/22/18 20:59 Last Admin: 06/23/18 21:31 Dose: Not Given Tamsulosin HCl (Flomax) 0.4 mg PO BID [facility] Stop: 08/19/18 08:59 Last Admin: 06/24/18 08:52 Dose: 0.4 mg Zolpidem Tartrate (Ambien) 5 mg PO HS PRN PRN Reason: Insomnia Stop: 08/17/18 22:51 Last Admin: 06/20/18 20:31 Dose: 5 mg General: alert HEENT: NC/AT, PERRLA Neck: Supple Lungs: CTAB Cardiovascular: RRR, Normal S1, Normal S2, without murmur Abdomen: soft, non-tender, non-distended Internal Medicine Assmt/Plan - Assessment Assessment: agitation hx uti schizophrenia psychosis - Plan Plan: continue current plan of care
--- NOTE | 2018-06-24 21:50 | Progress Notes ---
DATE: SUBJECTIVE: Chart reviewed and the patient interviewed. Also discussed the patient's condition with the staff and reviewed records and labs. The patient is still suspicious and is still extremely angry. The patient also is in irritable mood and easily agitated. The patient also still threatening nurses and staff and other patients. The patient also is refusing to take any psychotropic medication. At the same time, the patient still have episodes of being calm and follow directions. ASSESSMENT: The patient is still irritable and in angry mood. TREATMENT PLAN: Advised the patient to take his medications. We will continue monitoring his behavior and continue to follow up. JOB# [id number]
[2018-06-25] MEDS: Multivitamin Tab PO SCH (08:55)
[2018-06-25] MEDS: Lactobacillus Rhamnosus GG 15 Billion CFU CAP.SPRINK PO SCH (08:56)
--- NOTE | 2018-06-25 13:06 | Progress Notes ---
DATE: 06/25/2018 Chart reviewed and patient interviewed. Also, discussed the patient's condition with the staff and reviewed records and labs. The patient continued to be extremely angry and he is still in irritable mood and easily agitated. The patient also is still suspicious and is still paranoid. The patient also is having mood swings. Otherwise, the patient is easily slamming doors and still agitated. He did take his medications for the first time yesterday, but at the same time, he did not take except Seroquel 75 twice a day and 150 at night and refused to take the third dose of 75 mg. At the same time, he did take medications, which is a good start for his compliance with his treatment. We will continue same dose and continue to follow up. [facility]# [id number]
--- NOTE | 2018-06-25 16:46 | Internal Medicine Prog Note ---
Internal Medicine Subjective - Subjective Patient is:: awake Per staff patient has:: tolerating meds Internal Medicine Objective - Results Result Diagrams: 06/18/18 16:10 06/18/18 16:10 Recent Labs: Laboratory Last Values WBC 11.1 Th/cmm (4.8-10.8) H 06/18/18 16:10 RBC 5.04 Mil/cmm (3.80-5.80) 06/18/18 16:10 Hgb 14.7 gm/dL (12-16) 06/18/18 16:10 Hct 43.8 % (41.0-60) 06/18/18 16:10 MCV 86.9 fl (80-99) 06/18/18 16:10 MCH 29.2 pg (27.0-31.0) 06/18/18 16:10 MCHC Differential 33.6 pg (28.0-36.0) 06/18/18 16:10 RDW 13.1 % (11.5-20.0) 06/18/18 16:10 Plt Count 311 Th/cmm (150-400) 06/18/18 16:10 MPV 8.5 fl 06/18/18 16:10 Neutrophils % 70.5 % (40.0-80.0) 06/18/18 16:10 Lymphocytes % 16.5 % (20.0-50.0) L 06/18/18 16:10 Monocytes % 10.3 % (2.0-10.0) H 06/18/18 16:10 Eosinophils % 2.4 % (0.0-5.0) 06/18/18 16:10 Basophils % 0.3 % (0.0-2.0) 06/18/18 16:10 Sodium 136 mEq/L (136-145) 06/18/18 16:10 Potassium 3.6 mEq/L (3.5-5.1) 06/18/18 16:10 Chloride 105 mEq/L (98-107) 06/18/18 16:10 Carbon Dioxide 22.2 mEq/L (21.0-31.0) 06/18/18 16:10 Anion Gap 12.4 (7.0-16.0) 06/18/18 16:10 BUN 23 mg/dL (7-25) 06/18/18 16:10 Creatinine 1.0 mg/dL (0.7-1.3) 06/18/18 16:10 Est GFR ( Amer) > 60.0 ml/min (>90) 06/18/18 16:10 Est GFR (Non-Af Amer) > 60.0 ml/min 06/18/18 16:10 BUN/Creatinine Ratio 23.0 06/18/18 16:10 Glucose 107 mg/dL (70-105) H 06/18/18 16:10 Calcium 9.3 mg/dL (8.6-10.3) 06/18/18 16:10 Total Bilirubin 0.2 mg/dL (0.3-1.0) L 06/18/18 16:10 AST 16 U/L (13-39) 06/18/18 16:10 ALT 12 U/L (7-52) 06/18/18 16:10 Alkaline Phosphatase 94 U/L (34-104) 06/18/18 16:10 Troponin I 0.01 ng/mL (0.01-0.05) 06/18/18 16:10 Total Protein 7.5 gm/dL (6.0-8.3) 06/18/18 16:10 Albumin 3.4 gm/dL (4.2-5.5) L 06/18/18 16:10 Globulin 4.1 gm/dL 06/18/18 16:10 Albumin/Globulin Ratio 0.8 (1.0-1.8) L 06/18/18 16:10 Triglycerides 213 mg/dL (<150) H 06/18/18 16:10 Cholesterol 180 mg/dL (<200) 06/18/18 16:10 LDL Cholesterol Direct 118 mg/dL (75-193) 06/18/18 16:10 HDL Cholesterol 39 mg/dL (23-92) 06/18/18 16:10 TSH 0.73 uIU/ml (0.34-5.60) 06/18/18 16:10 Urine Source CLEAN C 06/18/18 16:15 Urine Color YELLOW 06/18/18 16:15 Urine Clarity HAZY (CLEAR) 06/18/18 16:15 Urine pH 6.0 (4.6 - 8.0) 06/18/18 16:15 Ur Specific [place] 1.025 (1.005-1.030) 06/18/18 16:15 Urine Protein 100 mg/dL (NEGATIVE) H 06/18/18 16:15 Urine Glucose (UA) NEGATIVE mg/dL (NEGATIVE) 06/18/18 16:15 Urine Ketones NEGATIVE mg/dL (NEGATIVE) 06/18/18 16:15 Urine Blood LARGE (NEGATIVE) H 06/18/18 16:15 Urine Nitrate NEGATIVE (NEGATIVE) 06/18/18 16:15 Urine Bilirubin NEGATIVE (NEGATIVE) 06/18/18 16:15 Urine Urobilinogen 0.2 E.U./dL (0.2 - 1.0) 06/18/18 16:15 Ur Leukocyte Esterase SMALL (NEGATIVE) H 06/18/18 16:15 Urine RBC 10-25 /hpf (0-5) H 06/18/18 16:15 Urine WBC 6-10 /hpf (0-5) 06/18/18 16:15 Ur Epithelial Cells FEW /lpf (FEW) 06/18/18 16:15 Urine Bacteria 1+ /hpf (NONE SEEN) H 06/18/18 16:15 Salicylates < 25.0 mg/L (30.0-100.0) L 06/18/18 16:10 Urine Opiates Screen POSITIVE (NEGATIVE) H 06/18/18 16:15 Urine Methadone Screen NEGATIVE (NEGATIVE) 06/18/18 16:15 Acetaminophen < 10.0 ug/mL (10.0-30.0) L 06/18/18 16:10 Ur Barbiturates Screen NEGATIVE (NEGATIVE) 06/18/18 16:15 Ur Tricyclics Screen NEGATIVE (NEGATIVE) 06/18/18 16:15 Ur Phencyclidine Scrn NEGATIVE (NEGATIVE) 06/18/18 16:15 Amphetamines Screen NEGATIVE (NEGATIVE) 06/18/18 16:15 U Methamphetamines Scrn NEGATIVE (NEGATIVE) 06/18/18 16:15 U Benzodiazepines Scrn NEGATIVE (NEGATIVE) 06/18/18 16:15 U Cocaine Metab Screen NEGATIVE (NEGATIVE) 06/18/18 16:15 U Cannabinoids Screen NEGATIVE (NEGATIVE) 06/18/18 16:15 Ethyl Alcohol < 10 mg/dL (0-10) 06/18/18 16:10 RPR NONREACTIVE (NONREACTIVE) 06/18/18 16:10 - Physical Exam Vitals and I&O: Vital Signs Temp 97.4 F 06/25/18 14:00 Pulse 104 06/25/18 14:00 Resp 20 06/25/18 14:00 BP 123/82 06/25/18 14:00 Pulse Ox 97 06/25/18 14:00 Intake & Output 06/24/18 06/25/18 06/25/18 18:59 06:59 18:59 Intake Total 1000 180 Balance 1000 180 Intake: Oral 1000 180 Other: # Voids 4 2 # Bowel Movements 1 0 Active Medications: Current Medications Acetaminophen (Tylenol) 650 mg PO Q4HR PRN PRN Reason: Pain or Fever >101 Stop: 08/18/18 23:28 Acetaminophen/Hydrocodone Bitart ([place] 5mg/325mg) 1 tab PO Q6H PRN PRN Reason: Pain (Moderate) Stop: 08/18/18 23:28 Last Admin: 06/23/18 01:54 Dose: 1 tab Al Hydrox/Mg Hydrox/Simethicone (Maalox) 30 ml PO Q4HR PRN PRN Reason: GI DISTRESS Stop: 08/17/18 22:51 Amlodipine Besylate (Norvasc) 10 mg PO DAILY [facility] Stop: 08/19/18 08:59 Last Admin: 06/25/18 08:56 Dose: 10 mg Bisacodyl (Dulcolax 5 Mg Ec Tab) 10 mg PO Q12H PRN PRN Reason: Constipation Stop: 08/18/18 23:28 Bisacodyl (Dulcolax 10 Mg Supp) 10 mg RC Q12H PRN PRN Reason: Constipation Stop: 08/18/18 23:28 Divalproex Sodium (Depakote Dr) 500 mg PO BID [facility]; Protocol Stop: 08/19/18 08:59 Last Admin: 06/25/18 08:55 Dose: 500 mg Docusate Sodium (Colace) 100 mg PO Q12H PRN PRN Reason: Constipation Stop: 08/18/18 23:28 Hydralazine HCl (Apresoline) 25 mg PO Q8H PRN PRN Reason: high blood pressure Stop: 08/18/18 23:28 Lactobacillus Rhamnosus (Culturelle 15b) 1 each PO DAILY [facility] Stop: 08/21/18 14:59 Last Admin: 06/25/18 08:56 Dose: 1 each Levofloxacin (Levaquin) 500 mg PO DAILY [facility] Stop: 08/19/18 13:59 Last Admin: 06/25/18 08:55 Dose: 500 mg Lorazepam (Ativan) 0.5 mg PO Q4HR PRN; Protocol PRN Reason: Anxiety Stop: 07/18/18 18:59 Magnesium Hydroxide (Milk Of Magnesia) 30 ml PO HS PRN PRN Reason: Constipation Miscellaneous (Probiotic Screen) 1 ea MC PRN PRN PRN Reason: PROTOCOL Stop: 08/21/18 14:39 Multivitamins/Vitamin C (Theragran) 1 tab PO DAILY [facility] Stop: 08/19/18 08:59 Last Admin: 06/25/18 08:55 Dose: 1 tab Ondansetron HCl (Zofran Odt) 4 mg PO Q4HR PRN PRN Reason: nausea/vomiting Stop: 08/18/18 23:28 Quetiapine Fumarate (Seroquel) 75 mg PO TID [facility]; Protocol Stop: 08/22/18 13:59 Last Admin: 06/25/18 14:16 Dose: Not Given Quetiapine Fumarate (Seroquel) 150 mg PO HS [facility]; Protocol Stop: 08/22/18 20:59 Last Admin: 06/24/18 21:25 Dose: 150 mg Tamsulosin HCl (Flomax) 0.4 mg PO BID [facility] Stop: 08/19/18 08:59 Last Admin: 06/25/18 08:55 Dose: 0.4 mg Zolpidem Tartrate (Ambien) 5 mg PO HS PRN PRN Reason: Insomnia Stop: 08/17/18 22:51 Last Admin: 06/20/18 20:31 Dose: 5 mg General: alert HEENT: NC/AT, PERRLA Neck: Supple Lungs: CTAB Cardiovascular: RRR, Normal S1, Normal S2, without murmur Abdomen: soft, non-tender, non-distended Nutritional Asmnt/Malnutr-PDOC - Dietary Evaluation Malnutrition Findings (Please click <Entered> for more info): Nutritional Asmnt/Malnutrition Start: 06/24/18 14: 05 Text: Status: Active Freq: Protocol: Document 06/24/18 14:05 [facility] (Rec: 06/24/18 14:22 [email or web address]) Nutritional Asmnt/Malnutrition Patient General Information Nutritional Screening Low Risk Diagnosis psychosis Pertinent Medical Hx/Surgical Hx HTN, arrythmia Subjective Information Pt seen in dining room, talking with [employer], easily agitated. Per EMR, PO intake 100%. Pt has no question or concern about current diet. Current Diet Order/ Nutrition Support [facility] soft chopped Pertinent Medications colace, culturelle, levaquin, theragran, seroquel Pertinent Labs 06/18 Glucose 107, alb 3.4, triglycerides 213 Nutritional Hx/Data Height 1.7 m Height (Calculated Centimeters) 170.2 Current Weight (lbs) 81.647 kg Weight (Calculated Kilograms) 81.6 Weight (Calculated Grams) 14140.6 [place] Body Weight 148 Body Mass Index (BMI) 28.1 Weight Status Overweight GI Symptoms GI Symptoms None Last BM 06/23 Difficult in: None Skin Integrity/Comment: intact Current %PO Good (75-100%) Estimated Nutritional Goals BEE in Kcals: Using Current wt Calories/Kcals/Kg 23-27 Kcals Calculated [id number] Protein: Using Current wt Protein g/k.8 Protein Calculated 62 Fluid: ml 1886-2214ml (1ml/kcal) Nutritional Problem No current Nutrition Prob Problem N/A Malnutrition Alert Is there a minimum of two criteria No selected? Query Text:Check all the applicable criteria. A minimum of two criteria are recommended for diagnosis of either severe or non-severe malnutrition. Malnutrition Related to Morbid Obesity Malnutrition related to morbid obesity No Intervention/Recommendation Comments 1. Continue with [facility] soft chopped diet as ordered. 2. Monitor PO intake, wt, labs and skin integrity 3. F/U as low risk in 7 days, 07/01 Expected Outcomes/Goals Expected Outcomes/Goals 1. PO intake to meet at least 75% of nutritional needs. 2. Wt stability, skin to remain intact, labs to approach WNL.
[2018-06-26] MEDS: Lactobacillus Rhamnosus GG 15 Billion CFU CAP.SPRINK PO SCH (08:48)
[2018-06-26] MEDS: Multivitamin Tab PO SCH (08:48)
--- NOTE | 2018-06-26 14:03 | Internal Medicine Prog Note ---
Internal Medicine Subjective - Subjective Patient is:: awake, other (irritable mood) Per staff patient has:: tolerating meds Internal Medicine Objective - Results Result Diagrams: 06/18/18 16:10 06/18/18 16:10 Recent Labs: Laboratory Last Values WBC 11.1 Th/cmm (4.8-10.8) H 06/18/18 16:10 RBC 5.04 Mil/cmm (3.80-5.80) 06/18/18 16:10 Hgb 14.7 gm/dL (12-16) 06/18/18 16:10 Hct 43.8 % (41.0-60) 06/18/18 16:10 MCV 86.9 fl (80-99) 06/18/18 16:10 MCH 29.2 pg (27.0-31.0) 06/18/18 16:10 MCHC Differential 33.6 pg (28.0-36.0) 06/18/18 16:10 RDW 13.1 % (11.5-20.0) 06/18/18 16:10 Plt Count 311 Th/cmm (150-400) 06/18/18 16:10 MPV 8.5 fl 06/18/18 16:10 Neutrophils % 70.5 % (40.0-80.0) 06/18/18 16:10 Lymphocytes % 16.5 % (20.0-50.0) L 06/18/18 16:10 Monocytes % 10.3 % (2.0-10.0) H 06/18/18 16:10 Eosinophils % 2.4 % (0.0-5.0) 06/18/18 16:10 Basophils % 0.3 % (0.0-2.0) 06/18/18 16:10 Sodium 136 mEq/L (136-145) 06/18/18 16:10 Potassium 3.6 mEq/L (3.5-5.1) 06/18/18 16:10 Chloride 105 mEq/L (98-107) 06/18/18 16:10 Carbon Dioxide 22.2 mEq/L (21.0-31.0) 06/18/18 16:10 Anion Gap 12.4 (7.0-16.0) 06/18/18 16:10 BUN 23 mg/dL (7-25) 06/18/18 16:10 Creatinine 1.0 mg/dL (0.7-1.3) 06/18/18 16:10 Est GFR ( Amer) > 60.0 ml/min (>90) 06/18/18 16:10 Est GFR (Non-Af Amer) > 60.0 ml/min 06/18/18 16:10 BUN/Creatinine Ratio 23.0 06/18/18 16:10 Glucose 107 mg/dL (70-105) H 06/18/18 16:10 Calcium 9.3 mg/dL (8.6-10.3) 06/18/18 16:10 Total Bilirubin 0.2 mg/dL (0.3-1.0) L 06/18/18 16:10 AST 16 U/L (13-39) 06/18/18 16:10 ALT 12 U/L (7-52) 06/18/18 16:10 Alkaline Phosphatase 94 U/L (34-104) 06/18/18 16:10 Troponin I 0.01 ng/mL (0.01-0.05) 06/18/18 16:10 Total Protein 7.5 gm/dL (6.0-8.3) 06/18/18 16:10 Albumin 3.4 gm/dL (4.2-5.5) L 06/18/18 16:10 Globulin 4.1 gm/dL 06/18/18 16:10 Albumin/Globulin Ratio 0.8 (1.0-1.8) L 06/18/18 16:10 Triglycerides 213 mg/dL (<150) H 06/18/18 16:10 Cholesterol 180 mg/dL (<200) 06/18/18 16:10 LDL Cholesterol Direct 118 mg/dL (75-193) 06/18/18 16:10 HDL Cholesterol 39 mg/dL (23-92) 06/18/18 16:10 TSH 0.73 uIU/ml (0.34-5.60) 06/18/18 16:10 Urine Source CLEAN C 06/18/18 16:15 Urine Color YELLOW 06/18/18 16:15 Urine Clarity HAZY (CLEAR) 06/18/18 16:15 Urine pH 6.0 (4.6 - 8.0) 06/18/18 16:15 Ur Specific [place] 1.025 (1.005-1.030) 06/18/18 16:15 Urine Protein 100 mg/dL (NEGATIVE) H 06/18/18 16:15 Urine Glucose (UA) NEGATIVE mg/dL (NEGATIVE) 06/18/18 16:15 Urine Ketones NEGATIVE mg/dL (NEGATIVE) 06/18/18 16:15 Urine Blood LARGE (NEGATIVE) H 06/18/18 16:15 Urine Nitrate NEGATIVE (NEGATIVE) 06/18/18 16:15 Urine Bilirubin NEGATIVE (NEGATIVE) 06/18/18 16:15 Urine Urobilinogen 0.2 E.U./dL (0.2 - 1.0) 06/18/18 16:15 Ur Leukocyte Esterase SMALL (NEGATIVE) H 06/18/18 16:15 Urine RBC 10-25 /hpf (0-5) H 06/18/18 16:15 Urine WBC 6-10 /hpf (0-5) 06/18/18 16:15 Ur Epithelial Cells FEW /lpf (FEW) 06/18/18 16:15 Urine Bacteria 1+ /hpf (NONE SEEN) H 06/18/18 16:15 Salicylates < 25.0 mg/L (30.0-100.0) L 06/18/18 16:10 Urine Opiates Screen POSITIVE (NEGATIVE) H 06/18/18 16:15 Urine Methadone Screen NEGATIVE (NEGATIVE) 06/18/18 16:15 Acetaminophen < 10.0 ug/mL (10.0-30.0) L 06/18/18 16:10 Ur Barbiturates Screen NEGATIVE (NEGATIVE) 06/18/18 16:15 Ur Tricyclics Screen NEGATIVE (NEGATIVE) 06/18/18 16:15 Ur Phencyclidine Scrn NEGATIVE (NEGATIVE) 06/18/18 16:15 Amphetamines Screen NEGATIVE (NEGATIVE) 06/18/18 16:15 U Methamphetamines Scrn NEGATIVE (NEGATIVE) 06/18/18 16:15 U Benzodiazepines Scrn NEGATIVE (NEGATIVE) 06/18/18 16:15 U Cocaine Metab Screen NEGATIVE (NEGATIVE) 06/18/18 16:15 U Cannabinoids Screen NEGATIVE (NEGATIVE) 06/18/18 16:15 Ethyl Alcohol < 10 mg/dL (0-10) 06/18/18 16:10 RPR NONREACTIVE (NONREACTIVE) 06/18/18 16:10 - Physical Exam Vitals and I&O: Vital Signs Temp 97.4 F 06/26/18 05:41 Pulse 70 06/26/18 08:54 Resp 20 06/26/18 05:41 BP 143/96 06/26/18 08:54 Pulse Ox 94 06/26/18 05:41 Intake & Output 06/25/18 06/26/18 06/26/18 18:59 06:59 18:59 Intake Total 2200 120 Balance 2200 120 Intake: Oral 2200 120 Other: # Voids 4 2 # Bowel Movements 1 Stool Characteristics Formed Active Medications: Current Medications Acetaminophen (Tylenol) 650 mg PO Q4HR PRN PRN Reason: Pain or Fever >101 Stop: 08/18/18 23:28 Acetaminophen/Hydrocodone Bitart ([place] 5mg/325mg) 1 tab PO Q6H PRN PRN Reason: Pain (Moderate) Stop: 08/18/18 23:28 Last Admin: 06/23/18 01:54 Dose: 1 tab Al Hydrox/Mg Hydrox/Simethicone (Maalox) 30 ml PO Q4HR PRN PRN Reason: GI DISTRESS Stop: 08/17/18 22:51 Amlodipine Besylate (Norvasc) 10 mg PO DAILY [facility] Stop: 08/19/18 08:59 Last Admin: 06/26/18 08:54 Dose: 10 mg Bisacodyl (Dulcolax 5 Mg Ec Tab) 10 mg PO Q12H PRN PRN Reason: Constipation Stop: 08/18/18 23:28 Bisacodyl (Dulcolax 10 Mg Supp) 10 mg RC Q12H PRN PRN Reason: Constipation Stop: 08/18/18 23:28 Divalproex Sodium (Depakote Dr) 500 mg PO BID [facility]; Protocol Stop: 08/19/18 08:59 Last Admin: 06/26/18 08:49 Dose: 500 mg Docusate Sodium (Colace) 100 mg PO Q12H PRN PRN Reason: Constipation Stop: 08/18/18 23:28 Hydralazine HCl (Apresoline) 25 mg PO Q8H PRN PRN Reason: high blood pressure Stop: 08/18/18 23:28 Lactobacillus Rhamnosus (Culturelle 15b) 1 each PO DAILY [facility] Stop: 08/21/18 14:59 Last Admin: 06/26/18 08:48 Dose: 1 each Lorazepam (Ativan) 0.5 mg PO Q4HR PRN; Protocol PRN Reason: Anxiety Stop: 07/18/18 18:59 Magnesium Hydroxide (Milk Of Magnesia) 30 ml PO HS PRN PRN Reason: Constipation Miscellaneous (Probiotic Screen) 1 ea MC PRN PRN PRN Reason: PROTOCOL Stop: 08/21/18 14:39 Multivitamins/Vitamin C (Theragran) 1 tab PO DAILY [facility] Stop: 08/19/18 08:59 Last Admin: 06/26/18 08:48 Dose: 1 tab Ondansetron HCl (Zofran Odt) 4 mg PO Q4HR PRN PRN Reason: nausea/vomiting Stop: 08/18/18 23:28 Quetiapine Fumarate (Seroquel) 75 mg PO TID [facility]; Protocol Stop: 08/22/18 13:59 Last Admin: 06/26/18 08:48 Dose: 75 mg Quetiapine Fumarate (Seroquel) 150 mg PO HS [facility]; Protocol Stop: 08/22/18 20:59 Last Admin: 06/25/18 21:32 Dose: 150 mg Tamsulosin HCl (Flomax) 0.4 mg PO BID [facility] Stop: 08/19/18 08:59 Last Admin: 06/26/18 08:48 Dose: 0.4 mg Zolpidem Tartrate (Ambien) 5 mg PO HS PRN PRN Reason: Insomnia Stop: 08/17/18 22:51 Last Admin: 06/20/18 20:31 Dose: 5 mg General: alert, other (easily irritable ) HEENT: NC/AT, PERRLA Neck: Supple Lungs: CTAB Cardiovascular: RRR, Normal S1, Normal S2, without murmur Abdomen: soft, non-tender, non-distended Internal Medicine Assmt/Plan - Assessment Assessment: agitation h/o uti schizophernia psychosis - Plan Plan: as per psych will monitor Nutritional Asmnt/Malnutr-PDOC - Dietary Evaluation Malnutrition Findings (Please click <Entered> for more info): Nutritional Asmnt/Malnutrition Start: 06/24/18 14: 05 Text: Status: Active Freq: Protocol: Document 06/24/18 14:05 [place] (Rec: 06/24/18 14:22 LCHENG [id number]) Nutritional Asmnt/Malnutrition Patient General Information Nutritional Screening Low Risk Diagnosis psychosis Pertinent Medical Hx/Surgical Hx HTN, arrythmia Subjective Information Pt seen in dining room, 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 Per EMR, PO intake 100%. Pt has no question or concern about current diet. Current Diet Order/ Nutrition Support [facility] soft chopped Pertinent Medications colace, culturelle, levaquin, theragran, seroquel Pertinent Labs 06/18 Glucose 107, alb 3.4, triglycerides 213 Nutritional Hx/Data Height 1.7 m Height (Calculated Centimeters) 170.2 Current Weight (lbs) 81.647 kg Weight (Calculated Kilograms) 81.6 Weight (Calculated Grams) 34710.6 [place] Body Weight 148 Body Mass Index (BMI) 28.1 Weight Status Overweight GI Symptoms GI Symptoms None Last BM 06/23 Difficult in: None Skin Integrity/Comment: intact Current %PO Good (75-100%) Estimated Nutritional Goals BEE in Kcals: Using Current wt Calories/Kcals/Kg 23-27 Kcals Calculated 5209-0879 Protein: Using Current wt Protein g/k.8 Protein Calculated 62 Fluid: ml 1886-2214ml (1ml/kcal) Nutritional Problem No current Nutrition Prob Problem N/A Malnutrition Alert Is there a minimum of two criteria No selected? Query Text:Check all the applicable criteria. A minimum of two criteria are recommended for diagnosis of either severe or non-severe malnutrition. Malnutrition Related to Morbid Obesity Malnutrition related to morbid obesity No Intervention/Recommendation Comments 1. Continue with [facility] soft chopped diet as ordered. 2. Monitor PO intake, wt, labs and skin integrity 3. F/U as low risk in 7 days, 07/01 Expected Outcomes/Goals Expected Outcomes/Goals 1. PO intake to meet at least 75% of nutritional needs. 2. Wt stability, skin to remain intact, labs to approach WNL.
--- NOTE | 2018-06-26 23:48 | Discharge Summary ---
DATE OF DISCHARGE: 06/26/2018 PATIENT'S AGE: 67. SEX: Male. PHYSICIAN: Dr. Thapa. FINAL DIAGNOSIS/PRIMARY DIAGNOSIS: Schizoaffective disorder, bipolar type, with psychotic features. MEDICAL DIAGNOSES: 1. Arthritis. 2. Hypertension. REASON FOR HOSPITALIZATION: The patient was admitted to the hospital because of increased agitation and irritability in the alf. The patient also is not able to follow directions. HOSPITAL COURSE: The patient continued to be agitated and in irritable mood. The patient also continued to be obnoxious and was sarcastic with the staff and also was interrupting them and their work all the time. Also was agitated and aggressive with peers. The patient was started on Depakote as well as on Seroquel. The patient was refusing to take medications in the beginning of treatment, but later on the patient agreed to take medications and he was compliant with taking Seroquel and Depakote. The patient's affect was brighter. The patient was less aggressive and less agitated. The patient was returned back to [facility]. Physical exam of the patient showed patient has arthritis and also has hypertension. Blood workup was basically within normal. AFTER-DISCHARGE PLANS: The patient discharged from the hospital and returned to [facility] with plans for follow him there. EXPECTED OUTCOME AFTER DISCHARGE: Fair if the patient continues his outpatient treatment and followup. [facility]# [id number]
== END 2018-06-26 16:20 | DRG 885 ==
LOC: ER 15:51 → GERO 17:56
PROVIDERS: ADMIT Psychiatry & Neurology Psychiatry; ATTEND Psychiatry & Neurology Psychiatry
DX: F25.0 Schizoaffective disorder, bipolar type (principal); N39.0 Urinary tract infection, site not specified; I10 Essential (primary) hypertension; F29 Unspecified psychosis not due to a substance or known physiological condition; M19.90 Unspecified osteoarthritis, unspecified site; Z88.8 Allergy status to other drugs, medicaments and biological substances; Z82.49 Family history of ischemic heart disease and other diseases of the circulatory system
CPT/HCPCS: 36415-UA; 80053-TC; 80061-TC; 80307; 80320-TC; 80329-TC; 81001-TC; 83036-90; 84443-TC; 84484-TC; 85025-TC; 86592-TC; 90899; 93005; G0410; Z7610

== ENCOUNTER 2018-10-23 15:57 | Inpatient (IN) | payer MEDICARE, MEDICAID ==
--- NOTE | 2018-10-23 16:44 | ED Physician Chart ---
ED Chief Complaint/HPI - Patient Information Date Seen:: 10/23/18 Time Seen:: 16:35 Chief Complaint:: aggressive behavior History of Present Illness:: The report was that the patient threatened the CNAs. Patient states he got into argument with another resident over who should use the bathroom first. Allergies:: Allergies Allergy/AdvReac Type Severity Reaction Status Date / Time carbamazepine Allergy Verified 10/23/18 16:25 ED Review of Systems - Review of Systems General/Constitutional: No fever, No chills, No weight loss, No weakness, No diaphoresis, No edema, No loss of appetite Skin: No skin lesions, No rash, No bruising Head: No headache, No light-headedness Eyes: No loss of vision, No pain, No diplopia ENT: No earache, No nasal drainage, No sore throat, No tinnitus Neck: No neck pain, No swelling, No thyromegaly, No stiffness, No mass noted Cardio Vascular: No chest pain, No palpitations, No PND, No orthopnea, No edema Pulmonary: No SOB, No cough, No sputum, No wheezing GI: No nausea, No vomiting, No diarrhea, No pain, No melena, No hematochezia, No constipation, No hematemesis G/U: No dysuria, No frequency, No hematuria Musculoskeletal: No bone or joint pain, No back pain, No muscle pain Endocrine: No polyuria, No polydipsia Psychiatric: No prior psych history, No depression, No anxiety, No suicidal ideation Hematopoietic: No bruising, No lymphadenopathy Allergic/Immuno: No urticaria, No angioedema Neurological: No syncope, No focal symptoms, No weakness, No paresthesia, No headache, No seizure, No dizziness, No confusion, No vertigo ED Past Medical History - Past Medical History Past Medical History: Other ( insomnia; anxiety; benign prostatic hypertrophy; is affective disorder; hydronephrosis with renal and ureteral calculus; psychosis; bipolar) Family History: HTN Social History: Non Smoker, No Alcohol Surgical History: Hernia Psychiatricy History: Bipolar, Other (schizoaffective) Medication: Reviewed Family Medical History - Family Member Mother History Unknown: Yes ED Physical Exam - Physical Examination General/Constitutional: Awake, Well-developed, well-nourished, Alert, No distress Other Gen/Cons comments:: Mildly confused: States the year is 2018 Head: Atraumatic Eyes: Lids, conjuctiva normal, PERRL Other Skin comments:: Redness distal about 15 cm left lower leg; bilateral 2.5 out of 4 pretibial pitting edema ENMT: External ears, nose nl Other ENMT comments:: Only one tooth noted Neck: No nuchal rigidity Respiratory: Nl effort/Exclusion, Clear to Auscultation, No Wheeze/Rhonchi/Rales Cardio Vascular: RRR GI: No tenderness/rebounding/guarding, No organomegaly, No hernia, Normal BS's Extremities: Normal digits & nails Neuro/Psych: No focal deficits ED Labs/Radiology/EKG Results - Lab Results Results: Abnormal Lab Results 10/23/18 10/23/18 10/23/18 16:50 16:50 16:50 WBC 8.8 RBC 5.31 Hgb 15.6 Hct 47.0 MCV 88.6 MCH 29.3 MCHC Differential 33.1 RDW 13.5 Plt Count 207 MPV 9.8 Neutrophils % 56.2 Lymphocytes % 27.9 Monocytes % 11.3 H Eosinophils % 4.2 Basophils % 0.4 Sodium 138 Potassium 3.7 Chloride 102 Carbon Dioxide 27.7 Anion Gap 12.0 BUN 25 Creatinine 1.7 H Est GFR ( Amer) 52.0 Est GFR (Non-Af Amer) 42.9 BUN/Creatinine Ratio 14.7 Glucose 100 Calcium 9.0 Total Bilirubin 0.3 AST 23 ALT 25 Alkaline Phosphatase 73 Total Protein 7.5 Albumin 3.5 L Globulin 4.0 Albumin/Globulin Ratio 0.9 L Triglycerides 322 H Cholesterol 208 H LDL Cholesterol Direct 143 HDL Cholesterol 35 TSH 1.12 Urine Source Urine Color Urine Clarity Urine pH Ur Specific [place] Urine Protein Urine Glucose (UA) Urine Ketones Urine Blood Urine Nitrate Urine Bilirubin Urine Urobilinogen Ur Leukocyte Esterase Urine RBC Urine WBC Ur Epithelial Cells Urine Bacteria Urine Opiates Screen Urine Methadone Screen Ur Barbiturates Screen Ur Tricyclics Screen Ur Phencyclidine Scrn Amphetamines Screen U Methamphetamines Scrn U Benzodiazepines Scrn U Cocaine Metab Screen U Cannabinoids Screen Ethyl Alcohol < 10 10/23/18 10/23/18 17:30 17:30 WBC RBC Hgb Hct MCV MCH MCHC Differential RDW Plt Count MPV Neutrophils % Lymphocytes % Monocytes % Eosinophils % Basophils % Sodium Potassium Chloride Carbon Dioxide Anion Gap BUN Creatinine Est GFR ( Amer) Est GFR (Non-Af Amer) BUN/Creatinine Ratio Glucose Calcium Total Bilirubin AST ALT Alkaline Phosphatase Total Protein Albumin Globulin Albumin/Globulin Ratio Triglycerides Cholesterol LDL Cholesterol Direct HDL Cholesterol TSH Urine Source CLEAN C Urine Color STRAW Urine Clarity CLEAR Urine pH 7.0 Ur Specific [place] 1.020 Urine Protein NEGATIVE Urine Glucose (UA) NEGATIVE Urine Ketones TRACE Urine Blood TRACE Urine Nitrate NEGATIVE Urine Bilirubin NEGATIVE Urine Urobilinogen 0.2 Ur Leukocyte Esterase TRACE H Urine RBC NONE SEEN Urine WBC 2-5 Ur Epithelial Cells RARE Urine Bacteria NONE SEEN Urine Opiates Screen NEGATIVE Urine Methadone Screen NEGATIVE Ur Barbiturates Screen NEGATIVE Ur Tricyclics Screen POSITIVE H Ur Phencyclidine Scrn NEGATIVE Amphetamines Screen NEGATIVE U Methamphetamines Scrn NEGATIVE U Benzodiazepines Scrn NEGATIVE U Cocaine Metab Screen NEGATIVE U Cannabinoids Screen NEGATIVE Ethyl Alcohol - EKG Interpretations Rate & Rhythm: normal sinus rhythm with a rate of 87 Phillips: normal axis Comments:: Right bundle-branch block ED Septic Shock - . Is Septic Shock (SBP<90, OR Lactate>4 mmol\L) present?: No ED Reassessment (Disposition) - Reassessment Reassessment Condition:: Unchanged - Diagnosis Diagnosis:: Aggressive behavior; schizoaffective disorder; bipolar disorder - Patient Disposition Admitted to:: [facility] Admitting Medical Physician:: Rosenda Goldsmith Admitting Psych Physician:: Luis Thapa Condition at Disposition:: Stable, Unchanged
[2018-10-23 16:56] LABS: % BASOPHILS 0.4 % (0.0-2.0); % EOSINOPHILS 4.2 % (0.0-5.0); % LYMPHOCYTES 27.9 % (20.0-50.0); % MONOCYTES 11.3 % (2.0-10.0); % NEUTROPHILS 56.2 % (40.0-80.0); EOSINOPHILE ABSOLUTE 0.4 Th/cmm (0.1-0.4); HEMOGLOBIN 15.6 gm/dL (12-16); LYMPHOCYTE ABSOLUTE 2.5 Th/cmm (1.5-3.0); MEAN CELL VOLUME 88.6 fl (80-99); MEAN CORPUSCULAR HEMOGLOBIN 29.3 pg (27.0-31.0); MEAN CORPUSCULAR HGB CONC 33.1 pg (28.0-36.0); MEAN PLATELET VOLUME 9.8 fl; NEUTROPHILE ABSOLUTE 4.9 Th/cmm (1.8-8.0); PLATELET COUNT 207 Th/cmm (150-400); RED BLOOD COUNT 5.31 Mil/cmm (3.80-5.80); RED CELL DISTRIBUTION WIDTH 13.5 % (11.5-20.0); WHITE BLOOD COUNT 8.8 Th/cmm (4.8-10.8)
[2018-10-23 17:13] LABS: ALB/GLOB RATIO 0.9 (1.0-1.8); ALBUMIN 3.5 gm/dL (4.2-5.5); ALKALINE PHOSPHATASE 73 U/L (34-104); BILIRUBIN,TOTAL 0.3 mg/dL (0.3-1.0); BUN - UREA NITROGEN 25 mg/dL (7-25); CARBON DIOXIDE 27.7 mEq/L (21.0-31.0); CHLORIDE 102 mEq/L (98-107); CHOLESTEROL 208 mg/dL (<200); CREATININE - SERUM 1.7 mg/dL (0.7-1.3); GFR NON AFRICAN-AMERICAN 42.9 ml/min; GLUCOSE 100 mg/dL (70-105); HDL -HIGH DENSITY LIPOPROTEIN 35 mg/dL (23-92); POTASSIUM SERUM 3.7 mEq/L (3.5-5.1); SGOT 23 U/L (13-39); SGPT/ALT 25 U/L (7-52); SODIUM SERUM 138 mEq/L (136-145); TOTAL PROTEIN,SERUM 7.5 gm/dL (6.0-8.3); TRIGLYCERIDES 322 mg/dL (<150)
[2018-10-23 18:06] LABS: URINE BILIRUBIN NEGATIVE (NEGATIVE); URINE BLOOD TRACE (NEGATIVE); URINE GLUCOSE (UA) NEGATIVE (NEGATIVE); URINE KETONE TRACE mg/dL (NEGATIVE); URINE LEUKOCYTE ESTERASE TRACE (NEGATIVE); URINE MICROSCOPIC INDICATED? YES; URINE NITRATE NEGATIVE (NEGATIVE); URINE PROTEIN NEGATIVE (NEGATIVE); URINE SOURCE CLEAN C; URINE UROBILINOGEN 0.2 E.U./dL (0.2 - 1.0)
[2018-10-23 18:16] LABS: URINE CLARITY CLEAR (CLEAR); URINE COLOR STRAW
[2018-10-23 18:19] LABS: AMPHETAMINE URINE NEGATIVE (NEGATIVE); BARBITURATES URINE NEGATIVE (NEGATIVE); BENZODIAZEPINES QUAL URINE NEGATIVE (NEGATIVE); CANNABINOID THC NEGATIVE (NEGATIVE); COCAINE METABOLITE QUAL URINE NEGATIVE (NEGATIVE); METHADONE URINE NEGATIVE (NEGATIVE); METHAMPHETAMINES QUAL URINE NEGATIVE (NEGATIVE); OPIATES (MORPHINE) QUAL. URINE NEGATIVE (NEGATIVE); PHENCYCLIDINE (PCP) URINE NEGATIVE (NEGATIVE); TRICYCLICS (TCA) QUAL. URINE POSITIVE (NEGATIVE)
[2018-10-23 18:27] LABS: URINE EPITHELIAL CELLS RARE /lpf (FEW); URINE RBC NONE SEEN /hpf (0-5)
[2018-10-23 18:28] LABS: URINE BACTERIA NONE SEEN /hpf (NONE SEEN)
[2018-10-23 21:36] LABS: ACETAMINOPHEN < 10.0 ug/mL (10.0-30.0); SALICYLATES (ASPIRIN) < 25.0 mg/L (30.0-100.0)
[2018-10-23 23:04] VITALS: BP 152/96
[2018-10-23] MEDS ORDERED: Magnesium Hydroxide (MOM) 30 mL UDC PO PRN (23:27)
[2018-10-23] MEDS ORDERED: Maalox 30 mL Cup PO PRN (23:27)
[2018-10-24] MEDS ORDERED: Hydrocodone/APAP 5mg/325mg Tab PO PRN (00:29)
[2018-10-24] MEDS ORDERED: Magnesium Hydroxide (MOM) 30 mL UDC PO PRN (00:29)
[2018-10-24] MEDS: Lactobacillus Rhamnosus GG 15 Billion CFU CAP.SPRINK PO SCH (08:39)
[2018-10-24] MEDS: Multivitamin Tab PO SCH (08:39)
[2018-10-24] MEDS ORDERED: QUETIAPINE FUMARATE PO SCH (09:00)
[2018-10-24] MEDS ORDERED: Maalox 30 mL Cup PO PRN ×2 (20:00)
--- NOTE | 2018-10-24 20:39 | History and Physical ---
History of Present Illness - HPI Chief Complaint: 68 y/o male patient was admitted due to Aggressive Behavior towards staff at SNF. Patient has history of Insomnia, Anxiety, Psychosis, Schizoaffective Disorder, Bipolar Disorder,BPH, Hypertrophy,Hydronephrosis with renal and ureteral calculus. Past Surgical History of Hernia Repair. Vital Signs: Last Vital Signs Temp 99.1 F 10/24/18 20:09 Pulse 93 10/24/18 20:09 Resp 20 10/24/18 20:09 BP 121/56 10/24/18 20:09 Pulse Ox 93 10/24/18 20:09 Weight (lbs): 72.621 kg Family Medical History - Family Member Mother History Unknown: Yes Ethnicity: Unknown Living Status: Unknown Social History Smoke: No Alcohol: None Drugs: None Lives: Retirement Domestic Violence: Negative - Medications Home Medications: Home Medication Medication Instructions Recorded Type Al Hyd/Mg Hyd/Simethicone [Maalox] 30 ml PO Q4HR PRN udc 06/26/18 Rx Bisacodyl [Dulcolax 10 Mg Supp] 10 mg RC Q12H PRN sup 06/26/18 Rx Bisacodyl [Dulcolax 5 Mg Ec Tab] 10 mg PO Q12H PRN ect 06/26/18 Rx Docusate Sodium [Colace] 100 mg PO Q12H PRN cap 06/26/18 Rx Hydralazine [Apresoline*] 25 mg PO Q8H PRN tab 06/26/18 Rx Hydrocodone/APAP 5mg/325mg [[place] 1 tab PO Q6H PRN tab 06/26/18 Rx 5mg/325mg] Lactobacillus Rhamnosus GG 15B 1 each PO DAILY cap.sprink 06/26/18 Rx [Culturelle 15B] Magnesium Hydroxide [Milk of 30 ml PO HS PRN udc 06/26/18 Rx Magnesia] Multivitamin [Theragran] 1 tab PO DAILY tab 06/26/18 Rx Ondansetron [Zofran Odt] 4 mg PO Q4HR PRN odt 06/26/18 Rx Tamsulosin [Flomax] 0.4 mg PO BID cap 06/26/18 Rx amLODIPine Besylate [Norvasc*] 10 mg PO DAILY tab 06/26/18 Rx Acetaminophen [Tylenol] 650 mg PO Q4HR PRN 10/23/[address] [Depakote DR] 500 mg PO BID 10/23/18 History Mag Hydrox/Al Hydrox/Simeth 30 ml PO Q4HR PRN 10/23/18 History [Alum-Mag Hydroxide-Simeth Liq] Quetiapine Fumarate [Quetiapine 1 tab PO DAILY 10/23/18 History Fumarate ER] - Allergies Allergies/Adverse Reactions: Allergies Allergy/AdvReac Type Severity Reaction Status Date / Time carbamazepine Allergy Verified 10/23/18 16:25 Review of Systems - Review of Systems Constitutional: Report: No Significant Eyes: Report: No Significant ENT: Report: No Significant Respiratory: Report: No Significant Cardiovascular: Report: No Significant Gastrointestinal: Report: No Significant Genitourinary: Report: No Significant Musculoskeletal: Report: Other (General Muscle Weakness) Skin: Report: Other (Redness of left lower leg.) Neurological: Report: Weakness, Other (Altered mental status.) Physical Exam - Physical Exam HEENT: Report: Ears Nose Throat within normal limits Neck: Report: Within normal limits Cardiovascular Systems: Report: +s1/s2 noted, No JVD Present Respiratory: Report: Breath Sounds are within normal limits Abdomen: Report: Non-tender to palpation, Bowel Sounds are within normal limits Back: Report: Inspection of back is within normal limits. Extremities: Report: Pedal edema was noted on inspection Skin: Report: Skin Rash noted (Redness of left lower leg and edema noted of bilateral lower extremities.) - Lab Results All Lab Results last 24 hours: Laboratory Results - last 24 hr 10/23/18 10/23/18 16:50 16:50 Salicylates < 25.0 L Acetaminophen < 10.0 L RPR NONREACTIVE - Assessment Assessment: Assessment and Impression- Aggressive Behavior. Insomnia. Anxiety. BPH. Hypertrophy. Hydronephrosis with renal and ureteral calculus. History of Psychosis. Bipolar Disorder. Schizoaffective Disorder. Edema of Bilateral lower extremities. - Plan Plan: Continuation of care Continue present meds as directed Monitor Mental health progress Monitor behavioral gertrude status Local skin care and wound care prn Physical therapy Fall precaution Supportive care Safety precaution Psych consult We will continue to monitor patient and continue current treatment plan as ordered.
--- NOTE | 2018-10-24 22:13 | History & Physical ---
ADMIT DATE: 10/23/2018 HISTORY OF PRESENT ILLNESS: The patient came to the Emergency Room with because of severe aggressive behavior. 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 The patient was seen in the Emergency Room and was evaluated. REVIEW OF SYSTEMS: Revealed no fever, no chills. No bone pain. No other problem. No bruising, etc. The patient does have a history of anxiety, benign enlargement of the prostate, hydronephrosis, ureteral calculus, and history of hypertension. PHYSICAL EXAMINATION: GENERAL: The patient on well-developed, well-nourished male patient, not in acute distress. The patient is mildly confused. HEAD: Normal. ENT: Normal. NECK: Supple, nontender. LUNGS: Clear. CARDIOVASCULAR SYSTEM: S1, S2 heard. ABDOMEN: Soft. The patient had distal lower leg edema as well. CENTRAL NERVOUS SYSTEM: Grossly normal. LABORATORY DATA: The patient's white count was 8.8. Electrolytes were normal. DIAGNOSES: Aggressive behavior, schizoaffective disorder, bipolar disorder, history of hypertension, history of benign enlargement of the prostate, history of hydronephrosis with renal and ureteral calculus in the past. PLAN: The patient is being admitted and I will follow the patient medically along with Dr. Heck. JOB# [id number]
[2018-10-25] MEDS: Lactobacillus Rhamnosus GG 15 Billion CFU CAP.SPRINK PO SCH (08:54)
[2018-10-25] MEDS: Multivitamin Tab PO SCH (08:54)
--- NOTE | 2018-10-25 15:20 | Psychiatric Evaluation ---
DATE OF SERVICE: PSYCHIATRIC INITIAL EVALUATION AND MENTAL STATUS EXAM PATIENT'S AGE: 68. SEX: Male. PHYSICIAN: Dr. Thapa. CHIEF COMPLAINT: Threatening and aggressive behavior. HISTORY OF PRESENT ILLNESS: The patient is a 68-year-old male, who threatened the CNAs in the half-way where he lives. The patient got into argument with another residence in the facility over who should use the bathroom first. The patient has been in angry and in irritable mood lately. He has been suspicious and paranoid and with severe mood swings. The patient has a history of bipolar disorder and has been taking Seroquel and Depakote, but lately the patient has been more aggressive and agitated. He also has been uncooperative with the staff. PAST PSYCHIATRIC HISTORY: The patient has history of multiple psychiatric hospitalizations and treatment of bipolar disorder and he was hospitalized on June of last year for similar episodes. PAST MEDICAL HISTORY: The patient has arthritis and hypertension. The patient also has history of prostatic surgery. FAMILY PSYCHIATRIC HISTORY: Noncontributory. SOCIAL HISTORY: The patient lives in half-way. No known alcohol or drug use. No legal issues. ALLERGIES: No known allergies. MENTAL STATUS EXAMINATION: The patient appears his stated age. Anxious. Irritable mood. Angry and minimizing the fact that he was arguing with another resident in the facility and he was threatening the CNAs. The patient denied any actual suicide or homicide. The patient is alert and oriented to time, place, person, and situation. Intact immediate, recent, and remote memories. Poor insight and he does not think that he has any issues or problems that need to be in the hospital. Poor judgment and he is threatening others. He seems to be of average intelligence based on his verbal ability. ASSESSMENT: PRIMARY DIAGNOSIS: Bipolar disorder, manic episode, severe, with psychotic features. MEDICAL DIAGNOSIS: Hypertension. TREATMENT PLAN: Continue to monitor the patient's behavior and condition closely. We will start individual as well as milieu psychotherapy. Also, we will adjust the dose of Depakote and Seroquel. ESTIMATED LENGTH OF STAY: 5-7 days. THE PATIENT'S STRENGTHS AND WEAKNESSES: The patient's strength is not clear at that time. Weaknesses is his poor judgment and poor impulse control. AFTER DISCHARGE PLAN: Outpatient treatment and followup will continue as an outpatient. CRITERIA FOR DISCHARGE: Better impulse control and stabilizing psychotropic medications and establish outpatient treatment plans. [facility]# [id number]
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
--- NOTE | 2018-10-25 21:31 | Progress Notes ---
DATE: 10/24/2018 SUBJECTIVE: The patient was seen in his room. The patient is asleep, but easily arousable. The patient appears to be guarded, easily gets frustrated, has behavioral mood outburst. Otherwise, the patient appears to be in no acute distress. OBJECTIVE: VITAL SIGNS: Temperature 98.2, heart rate 84, blood pressure 148/94, respirations 20, and 93% on room air. HEENT: Head is atraumatic and normocephalic. Eyes: Bilateral conjunctivae are clear. Bilateral pupils equal, round and reactive. NECK: Supple. No JVD. CARDIOVASCULAR: S1 and S2, without murmur. PULMONARY: Clear to auscultation. GASTROINTESTINAL: Soft and nontender without guarding. Positive bowel sounds. MUSCULOSKELETAL: No clubbing. No cyanosis noted. ASSESSMENT: 1. Schizoaffective disorder. 2. Hypertension. 3. Osteoarthritis. 4. Benign prostatic hypertrophy. PLAN: We will keep the patient inpatient to Psychiatric Unit. We will follow up with a psychiatrist to monitor the patient's condition and behavior. Treatment plans were discussed with the patient's nurse. Treatment plans were discussed with Dr. Goldsmith. JOB# [id number]
[2018-10-26] MEDS: Lactobacillus Rhamnosus GG 15 Billion CFU CAP.SPRINK PO SCH (09:18)
[2018-10-26] MEDS: Multivitamin Tab PO SCH (09:18)
--- NOTE | 2018-10-26 23:20 | Progress Notes ---
DATE: 10/26/2018 Case was discussed with staff of the patient, reviewed records. The patient found with staff that he should not be taking medication. He left me a message to talk to him when I talked to him, he said his name has been spelled wrong. He continues to have poor insight and unable make safe plan for self-care. Continues to be unpredictable, impulsive, needing redirection. He is easily agitated. He has been compliant. The staff is trying to persuade him to take his medication, should be on Depakote 500 mg twice a day and Seroquel 150 mg daily and will continue outpatient group therapy, milieu therapy, and adjust medications as needed. JOB# [id number]
[2018-10-27] MEDS: Lactobacillus Rhamnosus GG 15 Billion CFU CAP.SPRINK PO SCH (10:33)
[2018-10-27] MEDS: Multivitamin Tab PO SCH (10:33)
--- NOTE | 2018-10-27 10:53 | Internal Medicine Prog Note ---
Internal Medicine Subjective - Subjective Service Date: 10/27/18 Patient seen and examined:: with staff, chart reviewed Patient is:: awake, verbal, agitated Per staff patient has:: no adverse event, agitated (continues to have poor insight, unpredictable and impulsive.), combative Internal Medicine Objective - Results Result Diagrams: 10/23/18 16:50 10/23/18 16:50 Recent Labs: Laboratory Last Values WBC 8.8 Th/cmm (4.8-10.8) 10/23/18 16:50 RBC 5.31 Mil/cmm (3.80-5.80) 10/23/18 16:50 Hgb 15.6 gm/dL (12-16) 10/23/18 16:50 Hct 47.0 % (41.0-60) 10/23/18 16:50 MCV 88.6 fl (80-99) 10/23/18 16:50 MCH 29.3 pg (27.0-31.0) 10/23/18 16:50 MCHC Differential 33.1 pg (28.0-36.0) 10/23/18 16:50 RDW 13.5 % (11.5-20.0) 10/23/18 16:50 Plt Count 207 Th/cmm (150-400) 10/23/18 16:50 MPV 9.8 fl 10/23/18 16:50 Neutrophils % 56.2 % (40.0-80.0) 10/23/18 16:50 Lymphocytes % 27.9 % (20.0-50.0) 10/23/18 16:50 Monocytes % 11.3 % (2.0-10.0) H 10/23/18 16:50 Eosinophils % 4.2 % (0.0-5.0) 10/23/18 16:50 Basophils % 0.4 % (0.0-2.0) 10/23/18 16:50 Sodium 138 mEq/L (136-145) 10/23/18 16:50 Potassium 3.7 mEq/L (3.5-5.1) 10/23/18 16:50 Chloride 102 mEq/L (98-107) 10/23/18 16:50 Carbon Dioxide 27.7 mEq/L (21.0-31.0) 10/23/18 16:50 Anion Gap 12.0 (7.0-16.0) 10/23/18 16:50 BUN 25 mg/dL (7-25) 10/23/18 16:50 Creatinine 1.7 mg/dL (0.7-1.3) H 10/23/18 16:50 Est GFR ( Amer) 52.0 ml/min (>90) 10/23/18 16:50 Est GFR (Non-Af Amer) 42.9 ml/min 10/23/18 16:50 BUN/Creatinine Ratio 14.7 10/23/18 16:50 Glucose 100 mg/dL (70-105) 10/23/18 16:50 Calcium 9.0 mg/dL (8.6-10.3) 10/23/18 16:50 Total Bilirubin 0.3 mg/dL (0.3-1.0) 10/23/18 16:50 AST 23 U/L (13-39) 10/23/18 16:50 ALT 25 U/L (7-52) 10/23/18 16:50 Alkaline Phosphatase 73 U/L (34-104) 10/23/18 16:50 Total Protein 7.5 gm/dL (6.0-8.3) 10/23/18 16:50 Albumin 3.5 gm/dL (4.2-5.5) L 10/23/18 16:50 Globulin 4.0 gm/dL 10/23/18 16:50 Albumin/Globulin Ratio 0.9 (1.0-1.8) L 10/23/18 16:50 Triglycerides 322 mg/dL (<150) H 10/23/18 16:50 Cholesterol 208 mg/dL (<200) H 10/23/18 16:50 LDL Cholesterol Direct 143 mg/dL (75-193) 10/23/18 16:50 HDL Cholesterol 35 mg/dL (23-92) 10/23/18 16:50 TSH 1.12 uIU/ml (0.34-5.60) 10/23/18 16:50 Urine Source CLEAN C 10/23/18 17:30 Urine Color STRAW 10/23/18 17:30 Urine Clarity CLEAR (CLEAR) 10/23/18 17:30 Urine pH 7.0 (4.6 - 8.0) 10/23/18 17:30 Ur Specific [place] 1.020 (1.005-1.030) 10/23/18 17:30 Urine Protein NEGATIVE mg/dL (NEGATIVE) 10/23/18 17:30 Urine Glucose (UA) NEGATIVE mg/dL (NEGATIVE) 10/23/18 17:30 Urine Ketones TRACE mg/dL (NEGATIVE) 10/23/18 17:30 Urine Blood TRACE (NEGATIVE) 10/23/18 17:30 Urine Nitrate NEGATIVE (NEGATIVE) 10/23/18 17:30 Urine Bilirubin NEGATIVE (NEGATIVE) 10/23/18 17:30 Urine Urobilinogen 0.2 E.U./dL (0.2 - 1.0) 10/23/18 17:30 Ur Leukocyte Esterase TRACE (NEGATIVE) H 10/23/18 17:30 Urine RBC NONE SEEN /hpf (0-5) 10/23/18 17:30 Urine WBC 2-5 /hpf (0-5) 10/23/18 17:30 Ur Epithelial Cells RARE /lpf (FEW) 10/23/18 17:30 Urine Bacteria NONE SEEN /hpf (NONE SEEN) 10/23/18 17:30 Salicylates < 25.0 mg/L (30.0-100.0) L 10/23/18 16:50 Urine Opiates Screen NEGATIVE (NEGATIVE) 10/23/18 17:30 Urine Methadone Screen NEGATIVE (NEGATIVE) 10/23/18 17:30 Acetaminophen < 10.0 ug/mL (10.0-30.0) L 10/23/18 16:50 Ur Barbiturates Screen NEGATIVE (NEGATIVE) 10/23/18 17:30 Ur Tricyclics Screen POSITIVE (NEGATIVE) H 10/23/18 17:30 Ur Phencyclidine Scrn NEGATIVE (NEGATIVE) 10/23/18 17:30 Amphetamines Screen NEGATIVE (NEGATIVE) 10/23/18 17:30 U Methamphetamines Scrn NEGATIVE (NEGATIVE) 10/23/18 17:30 U Benzodiazepines Scrn NEGATIVE (NEGATIVE) 10/23/18 17:30 U Cocaine Metab Screen NEGATIVE (NEGATIVE) 10/23/18 17:30 U Cannabinoids Screen NEGATIVE (NEGATIVE) 10/23/18 17:30 Ethyl Alcohol < 10 mg/dL (0-10) 10/23/18 16:50 RPR NONREACTIVE (NONREACTIVE) 10/23/18 16:50 - Physical Exam Vitals and I&O: Vital Signs Temp 98.1 F 10/26/18 19:55 Pulse 85 10/27/18 10:36 Resp 18 10/26/18 20:00 BP 159/96 10/27/18 10:36 Pulse Ox 90 10/26/18 19:55 Intake & Output 10/26/18 10/27/18 10/27/18 18:59 06:59 18:59 Intake Total 470 Balance 470 Intake: Oral 470 Other: # Voids 3 # Bowel Movements 0 Active Medications: Current Medications Acetaminophen (Tylenol) 650 mg PO Q4HR PRN PRN Reason: Mild Pain Or Fever >101 Stop: 12/22/18 23:18 Acetaminophen/Hydrocodone Bitart ([place] 5mg/325mg) 1 tab PO Q6H PRN PRN Reason: Pain (Moderate) Stop: 12/23/18 00:28 Al Hydrox/Mg Hydrox/Simethicone (Maalox) 30 ml PO Q4HR PRN PRN Reason: GI DISTRESS Stop: 12/23/18 19:59 Amlodipine Besylate (Norvasc) 10 mg PO DAILY [facility] Stop: 12/23/18 08:59 Last Admin: 10/27/18 10:36 Dose: 10 mg Bisacodyl (Dulcolax 5 Mg Ec Tab) 10 mg PO Q12H PRN PRN Reason: Constipation Stop: 12/23/18 19:59 Divalproex Sodium (Depakote Dr) 500 mg PO BID [facility]; Protocol Stop: 12/23/18 10:59 Last Admin: 10/27/18 10:36 Dose: Not Given Docusate Sodium (Colace) 100 mg PO Q12H PRN PRN Reason: Constipation Stop: 12/22/18 23:18 Hydralazine HCl (Apresoline) 25 mg PO Q8H PRN PRN Reason: high blood pressure SBP> 150. Stop: 12/23/18 00:28 Lactobacillus Rhamnosus (Culturelle 15b) 1 each PO DAILY [facility] Stop: 12/23/18 08:59 Last Admin: 10/27/18 10:33 Dose: 1 each Lorazepam (Ativan) 0.5 mg PO Q4HR PRN; Protocol PRN Reason: Agitation Stop: 11/22/18 23:26 Magnesium Hydroxide (Milk Of Magnesia) 30 ml PO HS PRN PRN Reason: Constipation Multivitamins/Vitamin C (Theragran) 1 tab PO DAILY [facility] Stop: 12/23/18 08:59 Last Admin: 10/27/18 10:33 Dose: 1 tab Ondansetron HCl (Zofran Odt) 4 mg PO Q4HR PRN PRN Reason: nausea/vomiting Stop: 12/23/18 00:28 Quetiapine Fumarate (Seroquel) 150 mg PO DAILY [facility] Stop: 12/23/18 10:59 Last Admin: 10/27/18 10:35 Dose: Not Given Tamsulosin HCl (Flomax) 0.4 mg PO BID [facility] Stop: 12/23/18 08:59 Last Admin: 10/27/18 10:33 Dose: 0.4 mg Zolpidem Tartrate (Ambien) 5 mg PO HSMR1 PRN PRN Reason: Insomnia Stop: 12/22/18 23:26 General: other (Confused.) HEENT: PERRLA Neck: Supple Cardiovascular: Normal S1, Normal S2 Abdomen: soft, non-distended Extremities: other (edema of lower extremities.) Neurological: disorganized Internal Medicine Assmt/Plan - Assessment Assessment: Assessment and Impression- Aggressive Behavior. Insomnia. Anxiety. BPH. Hypertrophy. Hydronephrosis with renal and ureteral calculus. History of Psychosis. Bipolar Disorder. Schizoaffective Disorder. Edema of Bilateral lower extremities. - Plan Plan: Continuation of care Continue present meds as directed Monitor Mental health progress Monitor behavioral gertrude status Local skin care and wound care prn Physical therapy Fall precaution Supportive care Safety precaution Psych consult We will continue to monitor patient and continue current treatment plan as ordered.
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
[2018-10-28] MEDS: Multivitamin Tab PO SCH ×2 (08:25→08:45)
[2018-10-28] MEDS: Lactobacillus Rhamnosus GG 15 Billion CFU CAP.SPRINK PO SCH ×2 (08:27→08:45)
--- NOTE | 2018-10-28 16:16 | Internal Medicine Prog Note ---
Internal Medicine Subjective - Subjective Service Date: 10/28/18 Patient is:: awake, verbal, agitated Per staff patient has:: no adverse event, agitated (continues to have poor insight, unpredictable and impulsive.), combative Internal Medicine Objective - Results Result Diagrams: 10/23/18 16:50 10/23/18 16:50 Recent Labs: Laboratory Last Values WBC 8.8 Th/cmm (4.8-10.8) 10/23/18 16:50 RBC 5.31 Mil/cmm (3.80-5.80) 10/23/18 16:50 Hgb 15.6 gm/dL (12-16) 10/23/18 16:50 Hct 47.0 % (41.0-60) 10/23/18 16:50 MCV 88.6 fl (80-99) 10/23/18 16:50 MCH 29.3 pg (27.0-31.0) 10/23/18 16:50 MCHC Differential 33.1 pg (28.0-36.0) 10/23/18 16:50 RDW 13.5 % (11.5-20.0) 10/23/18 16:50 Plt Count 207 Th/cmm (150-400) 10/23/18 16:50 MPV 9.8 fl 10/23/18 16:50 Neutrophils % 56.2 % (40.0-80.0) 10/23/18 16:50 Lymphocytes % 27.9 % (20.0-50.0) 10/23/18 16:50 Monocytes % 11.3 % (2.0-10.0) H 10/23/18 16:50 Eosinophils % 4.2 % (0.0-5.0) 10/23/18 16:50 Basophils % 0.4 % (0.0-2.0) 10/23/18 16:50 Sodium 138 mEq/L (136-145) 10/23/18 16:50 Potassium 3.7 mEq/L (3.5-5.1) 10/23/18 16:50 Chloride 102 mEq/L (98-107) 10/23/18 16:50 Carbon Dioxide 27.7 mEq/L (21.0-31.0) 10/23/18 16:50 Anion Gap 12.0 (7.0-16.0) 10/23/18 16:50 BUN 25 mg/dL (7-25) 10/23/18 16:50 Creatinine 1.7 mg/dL (0.7-1.3) H 10/23/18 16:50 Est GFR ( Amer) 52.0 ml/min (>90) 10/23/18 16:50 Est GFR (Non-Af Amer) 42.9 ml/min 10/23/18 16:50 BUN/Creatinine Ratio 14.7 10/23/18 16:50 Glucose 100 mg/dL (70-105) 10/23/18 16:50 Calcium 9.0 mg/dL (8.6-10.3) 10/23/18 16:50 Total Bilirubin 0.3 mg/dL (0.3-1.0) 10/23/18 16:50 AST 23 U/L (13-39) 10/23/18 16:50 ALT 25 U/L (7-52) 10/23/18 16:50 Alkaline Phosphatase 73 U/L (34-104) 10/23/18 16:50 Total Protein 7.5 gm/dL (6.0-8.3) 10/23/18 16:50 Albumin 3.5 gm/dL (4.2-5.5) L 10/23/18 16:50 Globulin 4.0 gm/dL 10/23/18 16:50 Albumin/Globulin Ratio 0.9 (1.0-1.8) L 10/23/18 16:50 Triglycerides 322 mg/dL (<150) H 10/23/18 16:50 Cholesterol 208 mg/dL (<200) H 10/23/18 16:50 LDL Cholesterol Direct 143 mg/dL (75-193) 10/23/18 16:50 HDL Cholesterol 35 mg/dL (23-92) 10/23/18 16:50 TSH 1.12 uIU/ml (0.34-5.60) 10/23/18 16:50 Urine Source CLEAN C 10/23/18 17:30 Urine Color STRAW 10/23/18 17:30 Urine Clarity CLEAR (CLEAR) 10/23/18 17:30 Urine pH 7.0 (4.6 - 8.0) 10/23/18 17:30 Ur Specific [place] 1.020 (1.005-1.030) 10/23/18 17:30 Urine Protein NEGATIVE mg/dL (NEGATIVE) 10/23/18 17:30 Urine Glucose (UA) NEGATIVE mg/dL (NEGATIVE) 10/23/18 17:30 Urine Ketones TRACE mg/dL (NEGATIVE) 10/23/18 17:30 Urine Blood TRACE (NEGATIVE) 10/23/18 17:30 Urine Nitrate NEGATIVE (NEGATIVE) 10/23/18 17:30 Urine Bilirubin NEGATIVE (NEGATIVE) 10/23/18 17:30 Urine Urobilinogen 0.2 E.U./dL (0.2 - 1.0) 10/23/18 17:30 Ur Leukocyte Esterase TRACE (NEGATIVE) H 10/23/18 17:30 Urine RBC NONE SEEN /hpf (0-5) 10/23/18 17:30 Urine WBC 2-5 /hpf (0-5) 10/23/18 17:30 Ur Epithelial Cells RARE /lpf (FEW) 10/23/18 17:30 Urine Bacteria NONE SEEN /hpf (NONE SEEN) 10/23/18 17:30 Salicylates < 25.0 mg/L (30.0-100.0) L 10/23/18 16:50 Urine Opiates Screen NEGATIVE (NEGATIVE) 10/23/18 17:30 Urine Methadone Screen NEGATIVE (NEGATIVE) 10/23/18 17:30 Acetaminophen < 10.0 ug/mL (10.0-30.0) L 10/23/18 16:50 Ur Barbiturates Screen NEGATIVE (NEGATIVE) 10/23/18 17:30 Ur Tricyclics Screen POSITIVE (NEGATIVE) H 10/23/18 17:30 Ur Phencyclidine Scrn NEGATIVE (NEGATIVE) 10/23/18 17:30 Amphetamines Screen NEGATIVE (NEGATIVE) 10/23/18 17:30 U Methamphetamines Scrn NEGATIVE (NEGATIVE) 10/23/18 17:30 U Benzodiazepines Scrn NEGATIVE (NEGATIVE) 10/23/18 17:30 U Cocaine Metab Screen NEGATIVE (NEGATIVE) 10/23/18 17:30 U Cannabinoids Screen NEGATIVE (NEGATIVE) 10/23/18 17:30 Ethyl Alcohol < 10 mg/dL (0-10) 10/23/18 16:50 RPR NONREACTIVE (NONREACTIVE) 10/23/18 16:50 - Physical Exam Vitals and I&O: Vital Signs Temp 95.8 F 10/28/18 15:00 Pulse 77 10/28/18 15:00 Resp 20 10/28/18 15:00 BP 150/78 10/28/18 15:00 Pulse Ox 94 10/28/18 15:00 Intake & Output 10/27/18 10/28/18 10/28/18 18:59 06:59 18:59 Intake Total 1100 420 Balance 1100 420 Weight (lbs) 160 lb 1.642 oz Intake: Oral 1100 420 Other: # Voids 4 2 # Bowel Movements 1 0 Active Medications: Current Medications Acetaminophen (Tylenol) 650 mg PO Q4HR PRN PRN Reason: Mild Pain Or Fever >101 Stop: 12/22/18 23:18 Acetaminophen/Hydrocodone Bitart ([place] 5mg/325mg) 1 tab PO Q6H PRN PRN Reason: Pain (Moderate) Stop: 12/23/18 00:28 Al Hydrox/Mg Hydrox/Simethicone (Maalox) 30 ml PO Q4HR PRN PRN Reason: GI DISTRESS Stop: 12/23/18 19:59 Amlodipine Besylate (Norvasc) 10 mg PO DAILY [facility] Stop: 12/23/18 08:59 Last Admin: 10/28/18 08:44 Dose: Not Given Bisacodyl (Dulcolax 5 Mg Ec Tab) 10 mg PO Q12H PRN PRN Reason: Constipation Stop: 12/23/18 19:59 Divalproex Sodium (Depakote Dr) 500 mg PO BID [facility]; Protocol Stop: 12/23/18 10:59 Last Admin: 10/28/18 08:42 Dose: Not Given Docusate Sodium (Colace) 100 mg PO Q12H PRN PRN Reason: Constipation Stop: 12/22/18 23:18 Hydralazine HCl (Apresoline) 25 mg PO Q8H PRN PRN Reason: high blood pressure SBP> 150. Stop: 12/23/18 00:28 Lactobacillus Rhamnosus (Culturelle 15b) 1 each PO DAILY [facility] Stop: 12/23/18 08:59 Last Admin: 10/28/18 08:45 Dose: Not Given Lorazepam (Ativan) 0.5 mg PO Q4HR PRN; Protocol PRN Reason: Agitation Stop: 11/22/18 23:26 Magnesium Hydroxide (Milk Of Magnesia) 30 ml PO HS PRN PRN Reason: Constipation Multivitamins/Vitamin C (Theragran) 1 tab PO DAILY [facility] Stop: 12/23/18 08:59 Last Admin: 10/28/18 08:45 Dose: Not Given Ondansetron HCl (Zofran Odt) 4 mg PO Q4HR PRN PRN Reason: nausea/vomiting Stop: 12/23/18 00:28 Quetiapine Fumarate 100 mg/Quetiapine Fumarate 50 mg/Quetiapine Fumarate 25 mg 175 mg PO DAILY [facility] Stop: 12/28/18 08:59 Tamsulosin HCl (Flomax) 0.4 mg PO BID [facility] Stop: 12/23/18 08:59 Last Admin: 10/28/18 08:44 Dose: Not Given Zolpidem Tartrate (Ambien) 5 mg PO HSMR1 PRN PRN Reason: Insomnia Stop: 12/22/18 23:26 General: other (Confused.) HEENT: PERRLA Neck: Supple Cardiovascular: Normal S1, Normal S2 Abdomen: soft, non-distended Extremities: other (edema of lower extremities.) Neurological: disorganized Internal Medicine Assmt/Plan - Assessment Assessment: Aggressive Behavior. Insomnia. Anxiety. BPH. Hypertrophy. Hydronephrosis with renal and ureteral calculus. History of Psychosis. Bipolar Disorder. Schizoaffective Disorder. Edema of Bilateral lower extremities. - Plan Plan: fall precautions cpm Nutritional Asmnt/Malnutr-PDOC - Dietary Evaluation Malnutrition Findings (Please click <Entered> for more info): Nutritional Asmnt/Malnutrition Start: 10/27/18 14: 28 Text: Status: Complete Freq: Protocol: Document 10/27/18 14:28 LCHENG (Rec: 10/27/18 14:36 CRISTINAG [email or web address]) Nutritional Asmnt/Malnutrition Patient General Information Nutritional Screening Moderate Risk Diagnosis psychosis Pertinent Medical Hx/Surgical Hx insomnia, anxiety, BPH, affective disorer, hydronephrosis with renal and ureteral calculus, psychosis, bipolar, schizoaffective Subjective Information Pt seen eating in dining room at time of visit. Pt just want to eat shrimp. Per EMR, PO intake 100%. Current Diet Order/ Nutrition Support low sodium Pertinent Medications colace, culturelle, theragran, seroquel Pertinent Labs 10/23 Cr 1.7, alb 3.5 Nutritional Hx/Data Height 5 ft 7 in Height (Calculated Centimeters) 170.2 Current Weight (lbs) 180 lb Weight (Calculated Kilograms) 81.6 Weight (Calculated Grams) 83874.6 [place] Body Weight 148 Body Mass Index (BMI) 28.1 Weight Status Overweight GI Symptoms GI Symptoms None Last BM 2/8 Difficult in: None Skin Integrity/Comment: intact Current %PO Good (75-100%) Estimated Nutritional Goals BEE in Kcals: Using Current wt Calories/Kcals/Kg 23-27 Kcals Calculated 2700-5732 Protein: Using Current wt Protein g/k.8 Protein Calculated 65 Fluid: ml [id number] (1ml/kcal) Nutritional Problem No current Nutrition Prob Problem N/A Malnutrition Alert Is there a minimum of two criteria No selected? Query Text:Check all the applicable criteria. A minimum of two criteria are recommended for diagnosis of either severe or non-severe malnutrition. Malnutrition Related to Morbid Obesity Malnutrition related to morbid obesity No Intervention/Recommendation Comments 1. Continue with low sodium diet as ordered. 2. Monitor PO intake, wt, labs and skin integrity 3. F/U as low risk in 7 days Expected Outcomes/Goals Expected Outcomes/Goals 1. PO intake to meet at least 75% of nutritional needs. 2. Wt stability, skin to remain intact, labs to approach WNL.
[2018-10-29] MEDS: Lactobacillus Rhamnosus GG 15 Billion CFU CAP.SPRINK PO SCH (09:14)
[2018-10-29] MEDS: Multivitamin Tab PO SCH (09:20)
--- NOTE | 2018-10-29 10:45 | Internal Medicine Prog Note ---
Internal Medicine Subjective - Subjective Service Date: 10/29/18 Patient seen and examined:: chart reviewed Patient is:: awake, verbal, agitated, other (aggressive.) Per staff patient has:: no adverse event, agitated (continues to have poor insight, unpredictable and impulsive.), combative Internal Medicine Objective - Results Result Diagrams: 10/23/18 16:50 10/23/18 16:50 Recent Labs: Laboratory Last Values WBC 8.8 Th/cmm (4.8-10.8) 10/23/18 16:50 RBC 5.31 Mil/cmm (3.80-5.80) 10/23/18 16:50 Hgb 15.6 gm/dL (12-16) 10/23/18 16:50 Hct 47.0 % (41.0-60) 10/23/18 16:50 MCV 88.6 fl (80-99) 10/23/18 16:50 MCH 29.3 pg (27.0-31.0) 10/23/18 16:50 MCHC Differential 33.1 pg (28.0-36.0) 10/23/18 16:50 RDW 13.5 % (11.5-20.0) 10/23/18 16:50 Plt Count 207 Th/cmm (150-400) 10/23/18 16:50 MPV 9.8 fl 10/23/18 16:50 Neutrophils % 56.2 % (40.0-80.0) 10/23/18 16:50 Lymphocytes % 27.9 % (20.0-50.0) 10/23/18 16:50 Monocytes % 11.3 % (2.0-10.0) H 10/23/18 16:50 Eosinophils % 4.2 % (0.0-5.0) 10/23/18 16:50 Basophils % 0.4 % (0.0-2.0) 10/23/18 16:50 Sodium 138 mEq/L (136-145) 10/23/18 16:50 Potassium 3.7 mEq/L (3.5-5.1) 10/23/18 16:50 Chloride 102 mEq/L (98-107) 10/23/18 16:50 Carbon Dioxide 27.7 mEq/L (21.0-31.0) 10/23/18 16:50 Anion Gap 12.0 (7.0-16.0) 10/23/18 16:50 BUN 25 mg/dL (7-25) 10/23/18 16:50 Creatinine 1.7 mg/dL (0.7-1.3) H 10/23/18 16:50 Est GFR ( Amer) 52.0 ml/min (>90) 10/23/18 16:50 Est GFR (Non-Af Amer) 42.9 ml/min 10/23/18 16:50 BUN/Creatinine Ratio 14.7 10/23/18 16:50 Glucose 100 mg/dL (70-105) 10/23/18 16:50 Calcium 9.0 mg/dL (8.6-10.3) 10/23/18 16:50 Total Bilirubin 0.3 mg/dL (0.3-1.0) 10/23/18 16:50 AST 23 U/L (13-39) 10/23/18 16:50 ALT 25 U/L (7-52) 10/23/18 16:50 Alkaline Phosphatase 73 U/L (34-104) 10/23/18 16:50 Total Protein 7.5 gm/dL (6.0-8.3) 10/23/18 16:50 Albumin 3.5 gm/dL (4.2-5.5) L 10/23/18 16:50 Globulin 4.0 gm/dL 10/23/18 16:50 Albumin/Globulin Ratio 0.9 (1.0-1.8) L 10/23/18 16:50 Triglycerides 322 mg/dL (<150) H 10/23/18 16:50 Cholesterol 208 mg/dL (<200) H 10/23/18 16:50 LDL Cholesterol Direct 143 mg/dL (75-193) 10/23/18 16:50 HDL Cholesterol 35 mg/dL (23-92) 10/23/18 16:50 TSH 1.12 uIU/ml (0.34-5.60) 10/23/18 16:50 Urine Source CLEAN C 10/23/18 17:30 Urine Color STRAW 10/23/18 17:30 Urine Clarity CLEAR (CLEAR) 10/23/18 17:30 Urine pH 7.0 (4.6 - 8.0) 10/23/18 17:30 Ur Specific [place] 1.020 (1.005-1.030) 10/23/18 17:30 Urine Protein NEGATIVE mg/dL (NEGATIVE) 10/23/18 17:30 Urine Glucose (UA) NEGATIVE mg/dL (NEGATIVE) 10/23/18 17:30 Urine Ketones TRACE mg/dL (NEGATIVE) 10/23/18 17:30 Urine Blood TRACE (NEGATIVE) 10/23/18 17:30 Urine Nitrate NEGATIVE (NEGATIVE) 10/23/18 17:30 Urine Bilirubin NEGATIVE (NEGATIVE) 10/23/18 17:30 Urine Urobilinogen 0.2 E.U./dL (0.2 - 1.0) 10/23/18 17:30 Ur Leukocyte Esterase TRACE (NEGATIVE) H 10/23/18 17:30 Urine RBC NONE SEEN /hpf (0-5) 10/23/18 17:30 Urine WBC 2-5 /hpf (0-5) 10/23/18 17:30 Ur Epithelial Cells RARE /lpf (FEW) 10/23/18 17:30 Urine Bacteria NONE SEEN /hpf (NONE SEEN) 10/23/18 17:30 Salicylates < 25.0 mg/L (30.0-100.0) L 10/23/18 16:50 Urine Opiates Screen NEGATIVE (NEGATIVE) 10/23/18 17:30 Urine Methadone Screen NEGATIVE (NEGATIVE) 10/23/18 17:30 Acetaminophen < 10.0 ug/mL (10.0-30.0) L 10/23/18 16:50 Ur Barbiturates Screen NEGATIVE (NEGATIVE) 10/23/18 17:30 Ur Tricyclics Screen POSITIVE (NEGATIVE) H 10/23/18 17:30 Ur Phencyclidine Scrn NEGATIVE (NEGATIVE) 10/23/18 17:30 Amphetamines Screen NEGATIVE (NEGATIVE) 10/23/18 17:30 U Methamphetamines Scrn NEGATIVE (NEGATIVE) 10/23/18 17:30 U Benzodiazepines Scrn NEGATIVE (NEGATIVE) 10/23/18 17:30 U Cocaine Metab Screen NEGATIVE (NEGATIVE) 10/23/18 17:30 U Cannabinoids Screen NEGATIVE (NEGATIVE) 10/23/18 17:30 Ethyl Alcohol < 10 mg/dL (0-10) 10/23/18 16:50 RPR NONREACTIVE (NONREACTIVE) 10/23/18 16:50 - Physical Exam Vitals and I&O: Vital Signs Temp 98.1 F 10/29/18 06:50 Pulse 95 10/29/18 09:13 Resp 19 10/29/18 06:50 BP 142/88 10/29/18 09:13 Pulse Ox 93 10/29/18 06:50 Intake & Output 10/28/18 10/29/18 10/29/18 18:59 06:59 18:59 Intake Total 240 Balance 240 Intake: Oral 240 Other: # Voids 4 # Bowel Movements 0 Active Medications: Current Medications Acetaminophen (Tylenol) 650 mg PO Q4HR PRN PRN Reason: Mild Pain Or Fever >101 Stop: 12/22/18 23:18 Acetaminophen/Hydrocodone Bitart ([place] 5mg/325mg) 1 tab PO Q6H PRN PRN Reason: Pain (Moderate) Stop: 12/23/18 00:28 Al Hydrox/Mg Hydrox/Simethicone (Maalox) 30 ml PO Q4HR PRN PRN Reason: GI DISTRESS Stop: 12/23/18 19:59 Amlodipine Besylate (Norvasc) 10 mg PO DAILY [facility] Stop: 12/23/18 08:59 Last Admin: 10/29/18 09:13 Dose: 10 mg Bisacodyl (Dulcolax 5 Mg Ec Tab) 10 mg PO Q12H PRN PRN Reason: Constipation Stop: 12/23/18 19:59 Divalproex Sodium (Depakote Dr) 500 mg PO BID [facility]; Protocol Stop: 12/23/18 10:59 Last Admin: 10/29/18 09:13 Dose: Not Given Docusate Sodium (Colace) 100 mg PO Q12H PRN PRN Reason: Constipation Stop: 12/22/18 23:18 Hydralazine HCl (Apresoline) 25 mg PO Q8H PRN PRN Reason: high blood pressure SBP> 150. Stop: 12/23/18 00:28 Lactobacillus Rhamnosus (Culturelle 15b) 1 each PO DAILY [facility] Stop: 12/23/18 08:59 Last Admin: 10/29/18 09:14 Dose: 1 each Lorazepam (Ativan) 0.5 mg PO Q4HR PRN; Protocol PRN Reason: Agitation Stop: 11/22/18 23:26 Magnesium Hydroxide (Milk Of Magnesia) 30 ml PO HS PRN PRN Reason: Constipation Multivitamins/Vitamin C (Theragran) 1 tab PO DAILY [facility] Stop: 12/23/18 08:59 Last Admin: 10/29/18 09:20 Dose: 1 tab Ondansetron HCl (Zofran Odt) 4 mg PO Q4HR PRN PRN Reason: nausea/vomiting Stop: 12/23/18 00:28 Quetiapine Fumarate 100 mg/Quetiapine Fumarate 50 mg/Quetiapine Fumarate 25 mg 175 mg PO DAILY [facility] Stop: 12/28/18 08:59 Last Admin: 10/29/18 09:14 Dose: 175 mg Tamsulosin HCl (Flomax) 0.4 mg PO BID [facility] Stop: 12/23/18 08:59 Last Admin: 10/29/18 09:13 Dose: 0.4 mg Zolpidem Tartrate (Ambien) 5 mg PO HSMR1 PRN PRN Reason: Insomnia Stop: 12/22/18 23:26 General: other (Aggressive and combative, dis-oriented.) HEENT: PERRLA, throat clear Neck: Supple, No JVD Cardiovascular: Normal S1, Normal S2 Abdomen: soft, non-distended Extremities: other (edema of lower extremities.) Neurological: disorganized Internal Medicine Assmt/Plan - Assessment Assessment: Assessment and Impression- Aggressive Behavior. Insomnia. Anxiety. BPH. Hypertrophy. Hydronephrosis with renal and ureteral calculus. History of Psychosis. Bipolar Disorder. Schizoaffective Disorder. Edema of Bilateral lower extremities. - Plan Plan: Continuation of care Continue present meds as directed Monitor Mental health progress Monitor behavioral gertrude status Local skin care and wound care prn Physical therapy Fall precaution Supportive care Safety precaution Psych consult We will continue to monitor patient and continue current treatment plan as ordered. Nutritional Asmnt/Malnutr-PDOC - Dietary Evaluation Malnutrition Findings (Please click <Entered> for more info): Nutritional Asmnt/Malnutrition Start: 10/27/18 14: 28 Text: Status: Complete Freq: Protocol: Document 10/27/18 14:28 LCCRISTINAG (Rec: 10/27/18 14:36 LCCRISTINAG [email or web address]) Nutritional Asmnt/Malnutrition Patient General Information Nutritional Screening Moderate Risk Diagnosis psychosis Pertinent Medical Hx/Surgical Hx insomnia, anxiety, BPH, affective disorer, hydronephrosis with renal and ureteral calculus, psychosis, bipolar, schizoaffective Subjective Information Pt seen eating in dining room at time of visit. Pt just want to eat shrimp. Per EMR, PO intake 100%. Current Diet Order/ Nutrition Support low sodium Pertinent Medications colace, culturelle, theragran, seroquel Pertinent Labs 10/23 Cr 1.7, alb 3.5 Nutritional Hx/Data Height 1.7 m Height (Calculated Centimeters) 170.2 Current Weight (lbs) 81.647 kg Weight (Calculated Kilograms) 81.6 Weight (Calculated Grams) 62900.6 [place] Body Weight 148 Body Mass Index (BMI) 28.1 Weight Status Overweight GI Symptoms GI Symptoms None Last BM 10/24 Difficult in: None Skin Integrity/Comment: intact Current %PO Good (75-100%) Estimated Nutritional Goals BEE in Kcals: Using Current wt Calories/Kcals/Kg 23-27 Kcals Calculated 1578-4803 Protein: Using Current wt Protein g/k.8 Protein Calculated 65 Fluid: ml 1886-2214ml (1ml/kcal) Nutritional Problem No current Nutrition Prob Problem N/A Malnutrition Alert Is there a minimum of two criteria No selected? Query Text:Check all the applicable criteria. A minimum of two criteria are recommended for diagnosis of either severe or non-severe malnutrition. Malnutrition Related to Morbid Obesity Malnutrition related to morbid obesity No Intervention/Recommendation Comments 1. Continue with low sodium diet as ordered. 2. Monitor PO intake, wt, labs and skin integrity 3. F/U as low risk in 7 days Expected Outcomes/Goals Expected Outcomes/Goals 1. PO intake to meet at least 75% of nutritional needs. 2. Wt stability, skin to remain intact, labs to approach WNL.
--- NOTE | 2018-10-29 11:21 | Progress Notes ---
DATE: 10/28/2018 SUBJECTIVE: A 68-year-old male with history of aggressive behaviors, threatening behaviors. The patient is still making some nonsensical comments, statements, disoriented, does not really know why he is here exactly. The patient can be demanding at times, verbally abusive, rude to staff, verbally aggressing to patient. The patient continues to state that he is here because of what had been at a baseball game, episodes of yelling, slept for about 4 hours, angry mood. ASSESSMENT: The patient preoccupied, sometimes mumbling to self. Angry upset. Disorientation noted. PLAN: We will continue to monitor. We will continue dosing of Seroquel, Depakote. We will titrate dosing of Seroquel to try to better control his mood symptoms. JOB# [id number]
[2018-10-30] MEDS: Lactobacillus Rhamnosus GG 15 Billion CFU CAP.SPRINK PO SCH (08:28)
[2018-10-30] MEDS: Multivitamin Tab PO SCH (08:28)
--- NOTE | 2018-10-30 11:46 | Progress Notes ---
DATE: 10/29/2018 SUBJECTIVE: The patient seen, chart reviewed, discussed with staff. The patient is currently in the hospital, seems somewhat calmer, more cooperative. The patient sometimes refusing medications, treatment, still talking about going to a baseball game, does not really know why he is here, noted to be irritable, angry, impulsive outbursts, not want to talk to me at this time, focused on playing bingo, still rude to staff, verbally abusive, cursing at staff, refusing at times psychotropic medications. ASSESSMENT: The patient is not really amenable to care, ongoing symptoms. Impulsivity is bouts of confusion and irritability. PLAN: We will continue to monitor, encourage better med compliance. We will attempt to recontact the patient at a later time and is more amenable to speaking with me. JOB# [id number]
--- NOTE | 2018-10-30 18:30 | Internal Medicine Prog Note ---
Internal Medicine Subjective - Subjective Service Date: 10/30/18 Patient seen and examined:: with staff, chart reviewed Patient is:: awake, verbal, agitated, confused, other (aggressive.) Patient Complaints of:: other (Irritable and verbally abusive.) Per staff patient has:: no adverse event (Aggressive and very combative towards others.), agitated, combative, confused, other Internal Medicine Objective - Results Result Diagrams: 10/23/18 16:50 10/23/18 16:50 Recent Labs: Laboratory Last Values WBC 8.8 Th/cmm (4.8-10.8) 10/23/18 16:50 RBC 5.31 Mil/cmm (3.80-5.80) 10/23/18 16:50 Hgb 15.6 gm/dL (12-16) 10/23/18 16:50 Hct 47.0 % (41.0-60) 10/23/18 16:50 MCV 88.6 fl (80-99) 10/23/18 16:50 MCH 29.3 pg (27.0-31.0) 10/23/18 16:50 MCHC Differential 33.1 pg (28.0-36.0) 10/23/18 16:50 RDW 13.5 % (11.5-20.0) 10/23/18 16:50 Plt Count 207 Th/cmm (150-400) 10/23/18 16:50 MPV 9.8 fl 10/23/18 16:50 Neutrophils % 56.2 % (40.0-80.0) 10/23/18 16:50 Lymphocytes % 27.9 % (20.0-50.0) 10/23/18 16:50 Monocytes % 11.3 % (2.0-10.0) H 10/23/18 16:50 Eosinophils % 4.2 % (0.0-5.0) 10/23/18 16:50 Basophils % 0.4 % (0.0-2.0) 10/23/18 16:50 Sodium 138 mEq/L (136-145) 10/23/18 16:50 Potassium 3.7 mEq/L (3.5-5.1) 10/23/18 16:50 Chloride 102 mEq/L (98-107) 10/23/18 16:50 Carbon Dioxide 27.7 mEq/L (21.0-31.0) 10/23/18 16:50 Anion Gap 12.0 (7.0-16.0) 10/23/18 16:50 BUN 25 mg/dL (7-25) 10/23/18 16:50 Creatinine 1.7 mg/dL (0.7-1.3) H 10/23/18 16:50 Est GFR ( Amer) 52.0 ml/min (>90) 10/23/18 16:50 Est GFR (Non-Af Amer) 42.9 ml/min 10/23/18 16:50 BUN/Creatinine Ratio 14.7 10/23/18 16:50 Glucose 100 mg/dL (70-105) 10/23/18 16:50 Calcium 9.0 mg/dL (8.6-10.3) 10/23/18 16:50 Total Bilirubin 0.3 mg/dL (0.3-1.0) 10/23/18 16:50 AST 23 U/L (13-39) 10/23/18 16:50 ALT 25 U/L (7-52) 10/23/18 16:50 Alkaline Phosphatase 73 U/L (34-104) 10/23/18 16:50 Total Protein 7.5 gm/dL (6.0-8.3) 10/23/18 16:50 Albumin 3.5 gm/dL (4.2-5.5) L 10/23/18 16:50 Globulin 4.0 gm/dL 10/23/18 16:50 Albumin/Globulin Ratio 0.9 (1.0-1.8) L 10/23/18 16:50 Triglycerides 322 mg/dL (<150) H 10/23/18 16:50 Cholesterol 208 mg/dL (<200) H 10/23/18 16:50 LDL Cholesterol Direct 143 mg/dL (75-193) 10/23/18 16:50 HDL Cholesterol 35 mg/dL (23-92) 10/23/18 16:50 TSH 1.12 uIU/ml (0.34-5.60) 10/23/18 16:50 Urine Source CLEAN C 10/23/18 17:30 Urine Color STRAW 10/23/18 17:30 Urine Clarity CLEAR (CLEAR) 10/23/18 17:30 Urine pH 7.0 (4.6 - 8.0) 10/23/18 17:30 Ur Specific [place] 1.020 (1.005-1.030) 10/23/18 17:30 Urine Protein NEGATIVE mg/dL (NEGATIVE) 10/23/18 17:30 Urine Glucose (UA) NEGATIVE mg/dL (NEGATIVE) 10/23/18 17:30 Urine Ketones TRACE mg/dL (NEGATIVE) 10/23/18 17:30 Urine Blood TRACE (NEGATIVE) 10/23/18 17:30 Urine Nitrate NEGATIVE (NEGATIVE) 10/23/18 17:30 Urine Bilirubin NEGATIVE (NEGATIVE) 10/23/18 17:30 Urine Urobilinogen 0.2 E.U./dL (0.2 - 1.0) 10/23/18 17:30 Ur Leukocyte Esterase TRACE (NEGATIVE) H 10/23/18 17:30 Urine RBC NONE SEEN /hpf (0-5) 10/23/18 17:30 Urine WBC 2-5 /hpf (0-5) 10/23/18 17:30 Ur Epithelial Cells RARE /lpf (FEW) 10/23/18 17:30 Urine Bacteria NONE SEEN /hpf (NONE SEEN) 10/23/18 17:30 Salicylates < 25.0 mg/L (30.0-100.0) L 10/23/18 16:50 Urine Opiates Screen NEGATIVE (NEGATIVE) 10/23/18 17:30 Urine Methadone Screen NEGATIVE (NEGATIVE) 10/23/18 17:30 Acetaminophen < 10.0 ug/mL (10.0-30.0) L 10/23/18 16:50 Ur Barbiturates Screen NEGATIVE (NEGATIVE) 10/23/18 17:30 Valproic Acid < 10.0 ug/mL (50.0-100.0) L 10/30/18 06:50 Ur Tricyclics Screen POSITIVE (NEGATIVE) H 10/23/18 17:30 Ur Phencyclidine Scrn NEGATIVE (NEGATIVE) 10/23/18 17:30 Amphetamines Screen NEGATIVE (NEGATIVE) 10/23/18 17:30 U Methamphetamines Scrn NEGATIVE (NEGATIVE) 10/23/18 17:30 U Benzodiazepines Scrn NEGATIVE (NEGATIVE) 10/23/18 17:30 U Cocaine Metab Screen NEGATIVE (NEGATIVE) 10/23/18 17:30 U Cannabinoids Screen NEGATIVE (NEGATIVE) 10/23/18 17:30 Ethyl Alcohol < 10 mg/dL (0-10) 10/23/18 16:50 RPR NONREACTIVE (NONREACTIVE) 10/23/18 16:50 - Physical Exam Vitals and I&O: Vital Signs Temp 98.6 F 10/30/18 13:54 Pulse 96 10/30/18 13:54 Resp 20 10/30/18 13:54 BP 140/89 10/30/18 13:54 Pulse Ox 94 10/30/18 13:54 Intake & Output 10/29/18 10/30/18 10/30/18 18:59 06:59 18:59 Intake Total 1500 120 Balance 1500 120 Intake: Oral 1500 120 Other: # Voids 4 3 2 # Bowel Movements 0 0 Stool Characteristics Formed Formed [place] Active Medications: Current Medications Acetaminophen (Tylenol) 650 mg PO Q4HR PRN PRN Reason: Mild Pain Or Fever >101 Stop: 12/22/18 23:18 Acetaminophen/Hydrocodone Bitart ([place] 5mg/325mg) 1 tab PO Q6H PRN PRN Reason: Pain (Moderate) Stop: 12/23/18 00:28 Al Hydrox/Mg Hydrox/Simethicone (Maalox) 30 ml PO Q4HR PRN PRN Reason: GI DISTRESS Stop: 12/23/18 19:59 Amlodipine Besylate (Norvasc) 10 mg PO DAILY [facility] Stop: 12/23/18 08:59 Last Admin: 10/30/18 08:27 Dose: 10 mg Bisacodyl (Dulcolax 5 Mg Ec Tab) 10 mg PO Q12H PRN PRN Reason: Constipation Stop: 12/23/18 19:59 Divalproex Sodium (Depakote Dr) 500 mg PO BID [facility]; Protocol Stop: 12/23/18 10:59 Last Admin: 10/30/18 17:29 Dose: 500 mg Docusate Sodium (Colace) 100 mg PO Q12H PRN PRN Reason: Constipation Stop: 12/22/18 23:18 Hydralazine HCl (Apresoline) 25 mg PO Q8H PRN PRN Reason: high blood pressure SBP> 150. Stop: 12/23/18 00:28 Lactobacillus Rhamnosus (Culturelle 15b) 1 each PO DAILY [facility] Stop: 12/23/18 08:59 Last Admin: 10/30/18 08:28 Dose: 1 each Lorazepam (Ativan) 0.5 mg PO Q4HR PRN; Protocol PRN Reason: Agitation Stop: 11/22/18 23:26 Magnesium Hydroxide (Milk Of Magnesia) 30 ml PO HS PRN PRN Reason: Constipation Multivitamins/Vitamin C (Theragran) 1 tab PO DAILY [facility] Stop: 12/23/18 08:59 Last Admin: 10/30/18 08:28 Dose: 1 tab Ondansetron HCl (Zofran Odt) 4 mg PO Q4HR PRN PRN Reason: nausea/vomiting Stop: 12/23/18 00:28 Quetiapine Fumarate (Seroquel) 150 mg PO BID [facility] Stop: 12/29/18 08:59 Last Admin: 10/30/18 17:35 Dose: Not Given Tamsulosin HCl (Flomax) 0.4 mg PO BID [facility]PL[facility] Stop: 12/23/18 08:59 Last Admin: 10/30/18 17:29 Dose: 0.4 mg Zolpidem Tartrate (Ambien) 5 mg PO HSMR1 PRN PRN Reason: Insomnia Stop: 12/22/18 23:26 General: alert, other (Confused, Irritable and Aggressive.) HEENT: PERRLA, throat clear Neck: Supple, No JVD Lungs: CTAB Cardiovascular: Normal S1, Normal S2 Abdomen: soft, non-distended Extremities: clear, other (edema of lower extremities.) Neurological: disorganized Internal Medicine Assmt/Plan - Assessment Assessment: Assessment and Impression- Aggressive Behavior. Irritable and Combative behavior. Insomnia. Anxiety. BPH. Hypertrophy. Hydronephrosis with renal and ureteral calculus. History of Psychosis. Bipolar Disorder. Schizoaffective Disorder. Edema of Bilateral lower extremities. - Plan Plan: Continuation of care Continue present meds as directed Monitor Mental health progress Monitor behavioral gertrude status Local skin care and wound care prn Physical therapy Fall precaution Supportive care Safety precaution Followup with Dr. Heck for Psych Treatment We will continue to monitor patient and continue current treatment plan as ordered. Nutritional Asmnt/Malnutr-PDOC - Dietary Evaluation Malnutrition Findings (Please click <Entered> for more info): Nutritional Asmnt/Malnutrition Start: 10/27/18 14: 28 Text: Status: Complete Freq: Protocol: Document 10/27/18 14:28 LCHENG (Rec: 10/27/18 14:36 LCCRISTINAG [email or web address]) Nutritional Asmnt/Malnutrition Patient General Information Nutritional Screening Moderate Risk Diagnosis psychosis Pertinent Medical Hx/Surgical Hx insomnia, anxiety, BPH, affective disorer, hydronephrosis with renal and ureteral calculus, psychosis, bipolar, schizoaffective Subjective Information Pt seen eating in dining room at time of visit. Pt just want to eat shrimp. Per EMR, PO intake 100%. Current Diet Order/ Nutrition Support low sodium Pertinent Medications colace, culturelle, theragran, seroquel Pertinent Labs 10/23 Cr 1.7, alb 3.5 Nutritional Hx/Data Height 1.7 m Height (Calculated Centimeters) 170.2 Current Weight (lbs) 81.647 kg Weight (Calculated Kilograms) 81.6 Weight (Calculated Grams) 99007.6 [place] Body Weight 148 Body Mass Index (BMI) 28.1 Weight Status Overweight GI Symptoms GI Symptoms None Last BM 10/24 Difficult in: None Skin Integrity/Comment: intact Current %PO Good (75-100%) Estimated Nutritional Goals BEE in Kcals: Using Current wt Calories/Kcals/Kg 23-27 Kcals Calculated 2571-8632 Protein: Using Current wt Protein g/k.8 Protein Calculated 65 Fluid: ml 1886-2214ml (1ml/kcal) Nutritional Problem No current Nutrition Prob Problem N/A Malnutrition Alert Is there a minimum of two criteria No selected? Query Text:Check all the applicable criteria. A minimum of two criteria are recommended for diagnosis of either severe or non-severe malnutrition. Malnutrition Related to Morbid Obesity Malnutrition related to morbid obesity No Intervention/Recommendation Comments 1. Continue with low sodium diet as ordered. 2. Monitor PO intake, wt, labs and skin integrity 3. F/U as low risk in 7 days Expected Outcomes/Goals Expected Outcomes/Goals 1. PO intake to meet at least 75% of nutritional needs. 2. Wt stability, skin to remain intact, labs to approach WNL.
--- NOTE | 2018-10-31 06:39 | Progress Notes ---
DATE: 10/30/2018 PSYCHIATRIC PROGRESS NOTE SUBJECTIVE: Chart reviewed and the patient interviewed. Also discussed the patient's condition with the staff and reviewed records and labs. The patient continued to be demanding and is still hostile and easily agitated and paranoid with the staff. The patient also is still manipulative and demanding and intrusive to others. Also is still in angry mood and easily agitated. Otherwise, the patient is compliant with medications with no side effect of medications. ASSESSMENT: The patient is still agitated and in angry mood. TREATMENT PLAN: We will continue monitoring his behavior and his condition closely. Also, we will increase Seroquel to 150 mg twice a day. Also, we will get Depakote blood level today and continue to work on his poor impulse control and his irritability and continue to follow up closely. [facility]# [id number]
[2018-10-31] MEDS: Multivitamin Tab PO SCH (08:22)
[2018-10-31] MEDS: Lactobacillus Rhamnosus GG 15 Billion CFU CAP.SPRINK PO SCH (08:22)
[2018-11-01] MEDS: Multivitamin Tab PO SCH (08:46)
[2018-11-01] MEDS: Lactobacillus Rhamnosus GG 15 Billion CFU CAP.SPRINK PO SCH (08:47)
--- NOTE | 2018-11-01 14:18 | Progress Notes ---
DATE: 10/31/2018 DATE: 10/31/2018. SUBJECTIVE: Chart reviewed and the patient interviewed. Also discussed the patient's condition with the staff and reviewed records and labs. The patient is still anxious and still has episodes of irritability and easily agitated. The patient also is still wants to be left alone. He also is still hyperverbal and is still at times argumentative. Otherwise, the patient is compliant with taking his medications with no side effects of medications. ASSESSMENT: The patient is still needs close monitoring and behavioral modification. TREATMENT PLAN: Continue monitoring his behavior and his condition closely. Also, continue adjusting psychotropic medications and followup. JOB# [id number]
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
--- NOTE | 2018-11-01 17:04 | Progress Notes ---
DATE: 11/01/2018 SUBJECTIVE: The patient was seen in the dining area. The patient appears to be guarded, irritable and easily gets frustrated and manipulated with intrusive behaviors. Otherwise the patient appears to be in no acute distress. OBJECTIVE: VITAL SIGNS: Temperature 97, heart rate 92, blood pressure 135/75, respirations 19, 98% on room air. HEENT: Head is atraumatic and normocephalic. Eyes: Bilateral conjunctivae are clear. Bilateral pupils are equally round and reactive. NECK: Supple. No JVD. CARDIOVASCULAR: S1 and S2, without murmur. PULMONARY: Clear to auscultation. GASTROINTESTINAL: Soft and nontender without guarding. Positive bowel sounds. MUSCULOSKELETAL: No clubbing. No cyanosis noted. ASSESSMENT: 1. Schizoaffective disorder. 2. Hypertension. 3. Osteoarthritis. 4. Benign prostatic hypertrophy. PLAN: We will continue to keep the patient inpatient Psychiatric Unit. We will follow up with a psychiatrist to monitor the patient's condition and behavior. Treatment plans were discussed with the patient's nurse. Treatment plans were discussed with Dr. Goldsmith. JOB# [id number]
[2018-11-02] MEDS: Lactobacillus Rhamnosus GG 15 Billion CFU CAP.SPRINK PO SCH (09:17)
--- NOTE | 2018-11-02 09:18 | Internal Medicine Prog Note ---
Internal Medicine Subjective - Subjective Patient is:: awake, verbal, agitated, confused, other (irritable) Patient Complaints of:: other (Irritable and verbally abusive.) Per staff patient has:: no adverse event (Aggressive and very combative towards others.), agitated, combative, confused, other Internal Medicine Objective - Results Result Diagrams: 10/23/18 16:50 10/23/18 16:50 Recent Labs: Laboratory Last Values WBC 8.8 Th/cmm (4.8-10.8) 10/23/18 16:50 RBC 5.31 Mil/cmm (3.80-5.80) 10/23/18 16:50 Hgb 15.6 gm/dL (12-16) 10/23/18 16:50 Hct 47.0 % (41.0-60) 10/23/18 16:50 MCV 88.6 fl (80-99) 10/23/18 16:50 MCH 29.3 pg (27.0-31.0) 10/23/18 16:50 MCHC Differential 33.1 pg (28.0-36.0) 10/23/18 16:50 RDW 13.5 % (11.5-20.0) 10/23/18 16:50 Plt Count 207 Th/cmm (150-400) 10/23/18 16:50 MPV 9.8 fl 10/23/18 16:50 Neutrophils % 56.2 % (40.0-80.0) 10/23/18 16:50 Lymphocytes % 27.9 % (20.0-50.0) 10/23/18 16:50 Monocytes % 11.3 % (2.0-10.0) H 10/23/18 16:50 Eosinophils % 4.2 % (0.0-5.0) 10/23/18 16:50 Basophils % 0.4 % (0.0-2.0) 10/23/18 16:50 Sodium 138 mEq/L (136-145) 10/23/18 16:50 Potassium 3.7 mEq/L (3.5-5.1) 10/23/18 16:50 Chloride 102 mEq/L (98-107) 10/23/18 16:50 Carbon Dioxide 27.7 mEq/L (21.0-31.0) 10/23/18 16:50 Anion Gap 12.0 (7.0-16.0) 10/23/18 16:50 BUN 25 mg/dL (7-25) 10/23/18 16:50 Creatinine 1.7 mg/dL (0.7-1.3) H 10/23/18 16:50 Est GFR ( Amer) 52.0 ml/min (>90) 10/23/18 16:50 Est GFR (Non-Af Amer) 42.9 ml/min 10/23/18 16:50 BUN/Creatinine Ratio 14.7 10/23/18 16:50 Glucose 100 mg/dL (70-105) 10/23/18 16:50 Calcium 9.0 mg/dL (8.6-10.3) 10/23/18 16:50 Total Bilirubin 0.3 mg/dL (0.3-1.0) 10/23/18 16:50 AST 23 U/L (13-39) 10/23/18 16:50 ALT 25 U/L (7-52) 10/23/18 16:50 Alkaline Phosphatase 73 U/L (34-104) 10/23/18 16:50 Total Protein 7.5 gm/dL (6.0-8.3) 10/23/18 16:50 Albumin 3.5 gm/dL (4.2-5.5) L 10/23/18 16:50 Globulin 4.0 gm/dL 10/23/18 16:50 Albumin/Globulin Ratio 0.9 (1.0-1.8) L 10/23/18 16:50 Triglycerides 322 mg/dL (<150) H 10/23/18 16:50 Cholesterol 208 mg/dL (<200) H 10/23/18 16:50 LDL Cholesterol Direct 143 mg/dL (75-193) 10/23/18 16:50 HDL Cholesterol 35 mg/dL (23-92) 10/23/18 16:50 TSH 1.12 uIU/ml (0.34-5.60) 10/23/18 16:50 Urine Source CLEAN C 10/23/18 17:30 Urine Color STRAW 10/23/18 17:30 Urine Clarity CLEAR (CLEAR) 10/23/18 17:30 Urine pH 7.0 (4.6 - 8.0) 10/23/18 17:30 Ur Specific [place] 1.020 (1.005-1.030) 10/23/18 17:30 Urine Protein NEGATIVE mg/dL (NEGATIVE) 10/23/18 17:30 Urine Glucose (UA) NEGATIVE mg/dL (NEGATIVE) 10/23/18 17:30 Urine Ketones TRACE mg/dL (NEGATIVE) 10/23/18 17:30 Urine Blood TRACE (NEGATIVE) 10/23/18 17:30 Urine Nitrate NEGATIVE (NEGATIVE) 10/23/18 17:30 Urine Bilirubin NEGATIVE (NEGATIVE) 10/23/18 17:30 Urine Urobilinogen 0.2 E.U./dL (0.2 - 1.0) 10/23/18 17:30 Ur Leukocyte Esterase TRACE (NEGATIVE) H 10/23/18 17:30 Urine RBC NONE SEEN /hpf (0-5) 10/23/18 17:30 Urine WBC 2-5 /hpf (0-5) 10/23/18 17:30 Ur Epithelial Cells RARE /lpf (FEW) 10/23/18 17:30 Urine Bacteria NONE SEEN /hpf (NONE SEEN) 10/23/18 17:30 Salicylates < 25.0 mg/L (30.0-100.0) L 10/23/18 16:50 Urine Opiates Screen NEGATIVE (NEGATIVE) 10/23/18 17:30 Urine Methadone Screen NEGATIVE (NEGATIVE) 10/23/18 17:30 Acetaminophen < 10.0 ug/mL (10.0-30.0) L 10/23/18 16:50 Ur Barbiturates Screen NEGATIVE (NEGATIVE) 10/23/18 17:30 Valproic Acid < 10.0 ug/mL (50.0-100.0) L 10/30/18 06:50 Ur Tricyclics Screen POSITIVE (NEGATIVE) H 10/23/18 17:30 Ur Phencyclidine Scrn NEGATIVE (NEGATIVE) 10/23/18 17:30 Amphetamines Screen NEGATIVE (NEGATIVE) 10/23/18 17:30 U Methamphetamines Scrn NEGATIVE (NEGATIVE) 10/23/18 17:30 U Benzodiazepines Scrn NEGATIVE (NEGATIVE) 10/23/18 17:30 U Cocaine Metab Screen NEGATIVE (NEGATIVE) 10/23/18 17:30 U Cannabinoids Screen NEGATIVE (NEGATIVE) 10/23/18 17:30 Ethyl Alcohol < 10 mg/dL (0-10) 10/23/18 16:50 RPR NONREACTIVE (NONREACTIVE) 10/23/18 16:50 - Physical Exam Vitals and I&O: Vital Signs Temp 98.2 F 11/02/18 06:21 Pulse 79 11/02/18 06:21 Resp 19 11/02/18 06:21 BP 116/71 11/02/18 06:21 Pulse Ox 96 11/01/18 21:14 Intake & Output 11/01/18 11/02/18 11/02/18 18:59 06:59 18:59 Intake Total 240 Balance 240 Intake: Oral 240 Other: # Voids 2 Active Medications: Current Medications Acetaminophen (Tylenol) 650 mg PO Q4HR PRN PRN Reason: Mild Pain Or Fever >101 Stop: 12/22/18 23:18 Al Hydrox/Mg Hydrox/Simethicone (Maalox) 30 ml PO Q4HR PRN PRN Reason: GI DISTRESS Stop: 12/23/18 19:59 Amlodipine Besylate (Norvasc) 10 mg PO DAILY [facility] Stop: 12/23/18 08:59 Last Admin: 11/01/18 08:47 Dose: 10 mg Bisacodyl (Dulcolax 5 Mg Ec Tab) 10 mg PO Q12H PRN PRN Reason: Constipation Stop: 12/23/18 19:59 Divalproex Sodium (Depakote Dr) 500 mg PO BID [facility]; Protocol Stop: 12/23/18 10:59 Last Admin: 11/01/18 16:36 Dose: 500 mg Docusate Sodium (Colace) 100 mg PO Q12H PRN PRN Reason: Constipation Stop: 12/22/18 23:18 Hydralazine HCl (Apresoline) 25 mg PO Q8H PRN PRN Reason: high blood pressure SBP> 150. Stop: 12/23/18 00:28 Lactobacillus Rhamnosus (Culturelle 15b) 1 each PO DAILY [facility] Stop: 12/23/18 08:59 Last Admin: 11/01/18 08:47 Dose: 1 each Lorazepam (Ativan) 0.5 mg PO Q4HR PRN; Protocol PRN Reason: Agitation Stop: 11/22/18 23:26 Last Admin: 10/31/18 08:23 Dose: 0.5 mg Magnesium Hydroxide (Milk Of Magnesia) 30 ml PO HS PRN PRN Reason: Constipation Multivitamins/Vitamin C (Theragran) 1 tab PO DAILY [facility] Stop: 12/23/18 08:59 Last Admin: 11/01/18 08:46 Dose: 1 tab Ondansetron HCl (Zofran Odt) 4 mg PO Q4HR PRN PRN Reason: nausea/vomiting Stop: 12/23/18 00:28 Quetiapine Fumarate (Seroquel) 150 mg PO BID [facility] Stop: 12/29/18 08:59 Last Admin: 11/01/18 16:37 Dose: 150 mg Tamsulosin HCl (Flomax) 0.4 mg PO BID [facility] Stop: 12/23/18 08:59 Last Admin: 11/01/18 16:36 Dose: 0.4 mg Zolpidem Tartrate (Ambien) 5 mg PO HSMR1 PRN PRN Reason: Insomnia Stop: 12/22/18 23:26 General: alert, other (Confused, Irritable and Aggressive.) HEENT: PERRLA, throat clear Neck: Supple, No JVD Lungs: CTAB Cardiovascular: Normal S1, Normal S2 Abdomen: soft, non-distended Extremities: clear, other (edema of lower extremities.) Neurological: disorganized Internal Medicine Assmt/Plan - Assessment Assessment: Assessment and Impression- Aggressive Behavior. Irritable and Combative behavior. Insomnia. Anxiety. BPH. Hypertrophy. Hydronephrosis with renal and ureteral calculus. History of Psychosis. Bipolar Disorder. Schizoaffective Disorder. Edema of Bilateral lower extremities. - Plan Plan: Continuation of care Continue present meds as directed Monitor Mental health progress Monitor behavioral gertrude status Local skin care and wound care prn Physical therapy Fall precaution Supportive care Safety precaution Followup with Dr. Heck for Psych Treatment We will continue to monitor patient and continue current treatment plan as ordered. Nutritional Asmnt/Malnutr-PDOC - Dietary Evaluation Malnutrition Findings (Please click <Entered> for more info): Nutritional Asmnt/Malnutrition Start: 10/27/18 14: 28 Text: Status: Complete Freq: Protocol: Document 10/27/18 14:28 [facility] (Rec: 10/27/18 14:36 [email or web address]) Nutritional Asmnt/Malnutrition Patient General Information Nutritional Screening Moderate Risk Diagnosis psychosis Pertinent Medical Hx/Surgical Hx insomnia, anxiety, BPH, affective disorer, hydronephrosis with renal and ureteral calculus, psychosis, bipolar, schizoaffective Subjective Information Pt seen eating in dining room at time of visit. Pt just want to eat shrimp. Per EMR, PO intake 100%. Current Diet Order/ Nutrition Support low sodium Pertinent Medications colace, culturelle, theragran, seroquel Pertinent Labs 10/23 Cr 1.7, alb 3.5 Nutritional Hx/Data Height 1.7 m Height (Calculated Centimeters) 170.2 Current Weight (lbs) 81.647 kg Weight (Calculated Kilograms) 81.6 Weight (Calculated Grams) 32048.6 [place] Body Weight 148 Body Mass Index (BMI) 28.1 Weight Status Overweight GI Symptoms GI Symptoms None Last BM 10/24 Difficult in: None Skin Integrity/Comment: intact Current %PO Good (75-100%) Estimated Nutritional Goals BEE in Kcals: Using Current wt Calories/Kcals/Kg 23-27 Kcals Calculated 2556-0599 Protein: Using Current wt Protein g/k.8 Protein Calculated 65 Fluid: ml 1886-2214ml (1ml/kcal) Nutritional Problem No current Nutrition Prob Problem N/A Malnutrition Alert Is there a minimum of two criteria No selected? Query Text:Check all the applicable criteria. A minimum of two criteria are recommended for diagnosis of either severe or non-severe malnutrition. Malnutrition Related to Morbid Obesity Malnutrition related to morbid obesity No Intervention/Recommendation Comments 1. Continue with low sodium diet as ordered. 2. Monitor PO intake, wt, labs and skin integrity 3. F/U as low risk in 7 days Expected Outcomes/Goals Expected Outcomes/Goals 1. PO intake to meet at least 75% of nutritional needs. 2. Wt stability, skin to remain intact, labs to approach WNL.
[2018-11-02] MEDS: Multivitamin Tab PO SCH (09:48)
--- NOTE | 2018-11-02 18:49 | Progress Notes ---
DATE: 11/02/2018 SUBJECTIVE: A 68-year-old male, threatening behaviors, argumentative. On [id number], the patient does not want to talk to me, irritable on exam. The patient with ongoing mood swings, liabilities, still aggressive, sarcastic and verbally aggressive, angry, upset, does not want to be bothered, ongoing outbursts, fair orientation, but rude to staff, irritable, yelling at times, cursing at times. The patient is currently taking medications. Medications were noted including Seroquel, Depakote. ASSESSMENT: The patient with ongoing mood swings, anger episodes, yelling, and screaming at times. PLAN: We will continue to monitor. The patient remains symptomatic, irritable, not safe for a lower level of care. JOB# [id number]
[2018-11-03] MEDS: Multivitamin Tab PO SCH (08:09)
[2018-11-03] MEDS: Lactobacillus Rhamnosus GG 15 Billion CFU CAP.SPRINK PO SCH (08:09)
--- NOTE | 2018-11-03 10:02 | Internal Medicine Prog Note ---
Internal Medicine Subjective - Subjective Service Date: 11/03/18 Patient seen and examined:: with staff, chart reviewed Patient is:: awake, verbal, agitated, confused, other (Guarded, Remains irritable, Easily frustrated.) Patient Complaints of:: other (Irritable and verbally abusive.) Per staff patient has:: no adverse event (Aggressive and very combative towards others.), no episodes of fall, agitated, combative, confused, other Internal Medicine Objective - Results Result Diagrams: 10/23/18 16:50 10/23/18 16:50 Recent Labs: Laboratory Last Values WBC 8.8 Th/cmm (4.8-10.8) 10/23/18 16:50 RBC 5.31 Mil/cmm (3.80-5.80) 10/23/18 16:50 Hgb 15.6 gm/dL (12-16) 10/23/18 16:50 Hct 47.0 % (41.0-60) 10/23/18 16:50 MCV 88.6 fl (80-99) 10/23/18 16:50 MCH 29.3 pg (27.0-31.0) 10/23/18 16:50 MCHC Differential 33.1 pg (28.0-36.0) 10/23/18 16:50 RDW 13.5 % (11.5-20.0) 10/23/18 16:50 Plt Count 207 Th/cmm (150-400) 10/23/18 16:50 MPV 9.8 fl 10/23/18 16:50 Neutrophils % 56.2 % (40.0-80.0) 10/23/18 16:50 Lymphocytes % 27.9 % (20.0-50.0) 10/23/18 16:50 Monocytes % 11.3 % (2.0-10.0) H 10/23/18 16:50 Eosinophils % 4.2 % (0.0-5.0) 10/23/18 16:50 Basophils % 0.4 % (0.0-2.0) 10/23/18 16:50 Sodium 138 mEq/L (136-145) 10/23/18 16:50 Potassium 3.7 mEq/L (3.5-5.1) 10/23/18 16:50 Chloride 102 mEq/L (98-107) 10/23/18 16:50 Carbon Dioxide 27.7 mEq/L (21.0-31.0) 10/23/18 16:50 Anion Gap 12.0 (7.0-16.0) 10/23/18 16:50 BUN 25 mg/dL (7-25) 10/23/18 16:50 Creatinine 1.7 mg/dL (0.7-1.3) H 10/23/18 16:50 Est GFR ( Amer) 52.0 ml/min (>90) 10/23/18 16:50 Est GFR (Non-Af Amer) 42.9 ml/min 10/23/18 16:50 BUN/Creatinine Ratio 14.7 10/23/18 16:50 Glucose 100 mg/dL (70-105) 10/23/18 16:50 Calcium 9.0 mg/dL (8.6-10.3) 10/23/18 16:50 Total Bilirubin 0.3 mg/dL (0.3-1.0) 10/23/18 16:50 AST 23 U/L (13-39) 10/23/18 16:50 ALT 25 U/L (7-52) 10/23/18 16:50 Alkaline Phosphatase 73 U/L (34-104) 10/23/18 16:50 Total Protein 7.5 gm/dL (6.0-8.3) 10/23/18 16:50 Albumin 3.5 gm/dL (4.2-5.5) L 10/23/18 16:50 Globulin 4.0 gm/dL 10/23/18 16:50 Albumin/Globulin Ratio 0.9 (1.0-1.8) L 10/23/18 16:50 Triglycerides 322 mg/dL (<150) H 10/23/18 16:50 Cholesterol 208 mg/dL (<200) H 10/23/18 16:50 LDL Cholesterol Direct 143 mg/dL (75-193) 10/23/18 16:50 HDL Cholesterol 35 mg/dL (23-92) 10/23/18 16:50 TSH 1.12 uIU/ml (0.34-5.60) 10/23/18 16:50 Urine Source CLEAN C 10/23/18 17:30 Urine Color STRAW 10/23/18 17:30 Urine Clarity CLEAR (CLEAR) 10/23/18 17:30 Urine pH 7.0 (4.6 - 8.0) 10/23/18 17:30 Ur Specific [place] 1.020 (1.005-1.030) 10/23/18 17:30 Urine Protein NEGATIVE mg/dL (NEGATIVE) 10/23/18 17:30 Urine Glucose (UA) NEGATIVE mg/dL (NEGATIVE) 10/23/18 17:30 Urine Ketones TRACE mg/dL (NEGATIVE) 10/23/18 17:30 Urine Blood TRACE (NEGATIVE) 10/23/18 17:30 Urine Nitrate NEGATIVE (NEGATIVE) 10/23/18 17:30 Urine Bilirubin NEGATIVE (NEGATIVE) 10/23/18 17:30 Urine Urobilinogen 0.2 E.U./dL (0.2 - 1.0) 10/23/18 17:30 Ur Leukocyte Esterase TRACE (NEGATIVE) H 10/23/18 17:30 Urine RBC NONE SEEN /hpf (0-5) 10/23/18 17:30 Urine WBC 2-5 /hpf (0-5) 10/23/18 17:30 Ur Epithelial Cells RARE /lpf (FEW) 10/23/18 17:30 Urine Bacteria NONE SEEN /hpf (NONE SEEN) 10/23/18 17:30 Salicylates < 25.0 mg/L (30.0-100.0) L 10/23/18 16:50 Urine Opiates Screen NEGATIVE (NEGATIVE) 10/23/18 17:30 Urine Methadone Screen NEGATIVE (NEGATIVE) 10/23/18 17:30 Acetaminophen < 10.0 ug/mL (10.0-30.0) L 10/23/18 16:50 Ur Barbiturates Screen NEGATIVE (NEGATIVE) 10/23/18 17:30 Valproic Acid < 10.0 ug/mL (50.0-100.0) L 10/30/18 06:50 Ur Tricyclics Screen POSITIVE (NEGATIVE) H 10/23/18 17:30 Ur Phencyclidine Scrn NEGATIVE (NEGATIVE) 10/23/18 17:30 Amphetamines Screen NEGATIVE (NEGATIVE) 10/23/18 17:30 U Methamphetamines Scrn NEGATIVE (NEGATIVE) 10/23/18 17:30 U Benzodiazepines Scrn NEGATIVE (NEGATIVE) 10/23/18 17:30 U Cocaine Metab Screen NEGATIVE (NEGATIVE) 10/23/18 17:30 U Cannabinoids Screen NEGATIVE (NEGATIVE) 10/23/18 17:30 Ethyl Alcohol < 10 mg/dL (0-10) 10/23/18 16:50 RPR NONREACTIVE (NONREACTIVE) 10/23/18 16:50 - Physical Exam Vitals and I&O: Vital Signs Temp 97.8 F 11/03/18 06:34 Pulse 74 11/03/18 08:08 Resp 20 11/03/18 06:34 BP 141/82 11/03/18 08:08 Pulse Ox 97 11/03/18 06:34 Intake & Output 11/02/18 11/03/18 11/03/18 18:59 06:59 18:59 Intake Total 1100 480 Balance 1100 480 Intake: Oral 1100 480 Other: # Voids 4 1 # Bowel Movements 1 Active Medications: Current Medications Acetaminophen (Tylenol) 650 mg PO Q4HR PRN PRN Reason: Mild Pain Or Fever >101 Stop: 12/22/18 23:18 Al Hydrox/Mg Hydrox/Simethicone (Maalox) 30 ml PO Q4HR PRN PRN Reason: GI DISTRESS Stop: 12/23/18 19:59 Amlodipine Besylate (Norvasc) 10 mg PO DAILY [facility] Stop: 12/23/18 08:59 Last Admin: 11/03/18 08:08 Dose: 10 mg Bisacodyl (Dulcolax 5 Mg Ec Tab) 10 mg PO Q12H PRN PRN Reason: Constipation Stop: 12/23/18 19:59 Divalproex Sodium (Depakote Dr) 500 mg PO BID [facility]; Protocol Stop: 12/23/18 10:59 Last Admin: 11/03/18 08:09 Dose: 500 mg Docusate Sodium (Colace) 100 mg PO Q12H PRN PRN Reason: Constipation Stop: 12/22/18 23:18 Hydralazine HCl (Apresoline) 25 mg PO Q8H PRN PRN Reason: high blood pressure SBP> 150. Stop: 12/23/18 00:28 Lactobacillus Rhamnosus (Culturelle 15b) 1 each PO DAILY [facility] Stop: 12/23/18 08:59 Last Admin: 11/03/18 08:09 Dose: 1 each Lorazepam (Ativan) 0.5 mg PO Q4HR PRN; Protocol PRN Reason: Agitation Stop: 11/22/18 23:26 Last Admin: 11/02/18 09:48 Dose: 0.5 mg Magnesium Hydroxide (Milk Of Magnesia) 30 ml PO HS PRN PRN Reason: Constipation Multivitamins/Vitamin C (Theragran) 1 tab PO DAILY [facility] Stop: 12/23/18 08:59 Last Admin: 11/03/18 08:09 Dose: 1 tab Ondansetron HCl (Zofran Odt) 4 mg PO Q4HR PRN PRN Reason: nausea/vomiting Stop: 12/23/18 00:28 Quetiapine Fumarate (Seroquel) 150 mg PO BID [facility] Stop: 12/29/18 08:59 Last Admin: 11/03/18 08:09 Dose: 150 mg Tamsulosin HCl (Flomax) 0.4 mg PO BID [facility] Stop: 12/23/18 08:59 Last Admin: 11/02/18 17:15 Dose: 0.4 mg Zolpidem Tartrate (Ambien) 5 mg PO HSMR1 PRN PRN Reason: Insomnia Stop: 12/22/18 23:26 General: alert, other (Irritable and Aggressive.) HEENT: PERRLA, throat clear Neck: Supple, No JVD Lungs: CTAB Cardiovascular: Normal S1, Normal S2 Abdomen: soft, non-distended Extremities: clear, other (edema of lower extremities.) Neurological: disorganized Internal Medicine Assmt/Plan - Assessment Assessment: Assessment and Impression- Aggressive Behavior. Irritable and Combative behavior. Insomnia. Anxiety. BPH. Hypertrophy. Hydronephrosis with renal and ureteral calculus. History of Psychosis. Bipolar Disorder. Schizoaffective Disorder. Osteoarthritis - Plan Plan: Continuation of care Continue present meds as directed Monitor Mental health progress Monitor behavioral gertrude status Local skin care and wound care prn Physical therapy Fall precaution Supportive care Safety precaution Continue to keep patient in Psychiatric unit. Followup with Dr. Heck to monitor patient's condition and behavior. We will continue to monitor patient and continue current treatment plan as ordered. Nutritional Asmnt/Malnutr-PDOC - Dietary Evaluation Malnutrition Findings (Please click <Entered> for more info): Nutritional Asmnt/Malnutrition Start: 10/27/18 14: 28 Text: Status: Complete Freq: Protocol: Document 10/27/18 14:28 [facility] (Rec: 10/27/18 14:36 [email or web address]) Nutritional Asmnt/Malnutrition Patient General Information Nutritional Screening Moderate Risk Diagnosis psychosis Pertinent Medical Hx/Surgical Hx insomnia, anxiety, BPH, affective disorer, hydronephrosis with renal and ureteral calculus, psychosis, bipolar, schizoaffective Subjective Information Pt seen eating in dining room at time of visit. Pt just want to eat shrimp. Per EMR, PO intake 100%. Current Diet Order/ Nutrition Support low sodium Pertinent Medications colace, culturelle, theragran, seroquel Pertinent Labs 10/23 Cr 1.7, alb 3.5 Nutritional Hx/Data Height 1.7 m Height (Calculated Centimeters) 170.2 Current Weight (lbs) 81.647 kg Weight (Calculated Kilograms) 81.6 Weight (Calculated Grams) 65767.6 [place] Body Weight 148 Body Mass Index (BMI) 28.1 Weight Status Overweight GI Symptoms GI Symptoms None Last BM 10/24 Difficult in: None Skin Integrity/Comment: intact Current %PO Good (75-100%) Estimated Nutritional Goals BEE in Kcals: Using Current wt Calories/Kcals/Kg 23-27 Kcals Calculated 1313-6087 Protein: Using Current wt Protein g/k.8 Protein Calculated 65 Fluid: ml 1886-2214ml (1ml/kcal) Nutritional Problem No current Nutrition Prob Problem N/A Malnutrition Alert Is there a minimum of two criteria No selected? Query Text:Check all the applicable criteria. A minimum of two criteria are recommended for diagnosis of either severe or non-severe malnutrition. Malnutrition Related to Morbid Obesity Malnutrition related to morbid obesity No Intervention/Recommendation Comments 1. Continue with low sodium diet as ordered. 2. Monitor PO intake, wt, labs and skin integrity 3. F/U as low risk in 7 days Expected Outcomes/Goals Expected Outcomes/Goals 1. PO intake to meet at least 75% of nutritional needs. 2. Wt stability, skin to remain intact, labs to approach WNL.
--- NOTE | 2018-11-04 14:36 | Progress Notes ---
DATE: 11/01/2018 DATE OF SERVICE: 11/01/2018. Chart reviewed and the patient interviewed. Also discussed the patient's condition with the staff and reviewed records and labs. The patient is still demanding and is still in irritable mood. The patient also is still hallucinating and responding to stimuli. The patient also is still suspicious and is still paranoid. The patient also still argumentative and resisting care and refused medications and easily irritable and agitated. ASSESSMENT: The patient is still psychotic and agitated. TREATMENT PLAN: Continue to monitor his behavior and his condition closely. Also, continue to work on his compliance with taking medications and his ineffective coping and poor impulse control. JOB# [id number]
== END 2018-11-03 17:44 | DRG 885 ==
LOC: ER 15:57 → GERO 19:00
PROVIDERS: ADMIT Psychiatry & Neurology Psychiatry; ATTEND Psychiatry & Neurology Psychiatry
DX: F31.2 Bipolar disorder, current episode manic severe with psychotic features (principal); N13.2 Hydronephrosis with renal and ureteral calculous obstruction; G47.00 Insomnia, unspecified; F41.9 Anxiety disorder, unspecified; N40.0 Benign prostatic hyperplasia without lower urinary tract symptoms; R60.0 Localized edema; M19.90 Unspecified osteoarthritis, unspecified site; I10 Essential (primary) hypertension; Z88.8 Allergy status to other drugs, medicaments and biological substances; Z82.49 Family history of ischemic heart disease and other diseases of the circulatory system; Z87.442 Personal history of urinary calculi
CPT/HCPCS: 36415-UA; 80053-TC; 80061-TC; 80164-TC; 80307; 80320-TC; 80329-TC; 81001-TC; 83036-90; 84443-TC; 85025-TC; 86592-TC; 93005; G0410; Z7610

== ENCOUNTER 2019-01-13 10:39 | Inpatient (IN) | payer MEDICARE, MEDICAID ==
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
[2019-01-13 12:21] LABS: MEAN CELL VOLUME 88.8 fl (80-99); MEAN PLATELET VOLUME 9.4 fl
[2019-01-13 12:23] LABS: URINE SOURCE CLEAN C
[2019-01-13 12:24] LABS: % BASOPHILS 0.4 % (0.0-2.0); % EOSINOPHILS 2.5 % (0.0-5.0); % LYMPHOCYTES 22.1 % (20.0-50.0); % MONOCYTES 11.1 % (2.0-10.0); % NEUTROPHILS 63.9 % (40.0-80.0); EOSINOPHILE ABSOLUTE 0.2 Th/cmm (0.1-0.4); HEMATOCRIT 47.5 % (41.0-60); HEMOGLOBIN 15.7 gm/dL (12-16); MEAN CORPUSCULAR HEMOGLOBIN 29.4 pg (27.0-31.0); MEAN CORPUSCULAR HGB CONC 33.1 pg (28.0-36.0); NEUTROPHILE ABSOLUTE 5.7 Th/cmm (1.8-8.0); PLATELET COUNT 223 Th/cmm (150-400); RED BLOOD COUNT 5.35 Mil/cmm (3.80-5.80); RED CELL DISTRIBUTION WIDTH 13.7 % (11.5-20.0); WHITE BLOOD COUNT 8.9 Th/cmm (4.8-10.8)
[2019-01-13 12:29] LABS: URINE BILIRUBIN NEGATIVE (NEGATIVE); URINE BLOOD SMALL (NEGATIVE); URINE GLUCOSE (UA) NEGATIVE (NEGATIVE); URINE KETONE NEGATIVE (NEGATIVE); URINE LEUKOCYTE ESTERASE MODERATE (NEGATIVE); URINE MICROSCOPIC INDICATED? YES; URINE NITRATE NEGATIVE (NEGATIVE); URINE PROTEIN 30 mg/dL (NEGATIVE); URINE UROBILINOGEN 0.2 E.U./dL (0.2 - 1.0)
[2019-01-13 12:32] LABS: URINE CLARITY HAZY (CLEAR); URINE COLOR YELLOW
[2019-01-13 12:34] LABS: ALB/GLOB RATIO 0.8 (1.0-1.8); ALBUMIN 3.6 gm/dL (4.2-5.5); ALKALINE PHOSPHATASE 87 U/L (34-104); ANION GAP 10.2 (7.0-16.0); BILIRUBIN,TOTAL 0.3 mg/dL (0.3-1.0); BUN - UREA NITROGEN 24 mg/dL (7-25); CALCIUM SERUM 9.2 mg/dL (8.6-10.3); CARBON DIOXIDE 26.8 mEq/L (21.0-31.0); CHLORIDE 104 mEq/L (98-107); CHOLESTEROL 197 mg/dL (<200); CREATININE - SERUM 1.4 mg/dL (0.7-1.3); GFR AFRICAN-AMERICAN > 60.0 ml/min (>90); GFR NON AFRICAN-AMERICAN 53.7 ml/min; GLUCOSE 116 mg/dL (70-105); HDL -HIGH DENSITY LIPOPROTEIN 32 mg/dL (23-92); SGOT 14 U/L (13-39); SGPT/ALT 12 U/L (7-52); SODIUM SERUM 137 mEq/L (136-145); TRIGLYCERIDES 285 mg/dL (<150)
[2019-01-13 12:41] LABS: URINE BACTERIA FEW /hpf (NONE SEEN); URINE EPITHELIAL CELLS NONE SEEN /lpf (FEW); URINE WBC 50-100 /hpf (0-5)
--- NOTE | 2019-01-13 13:23 | Diagnostic Imaging Report ---
Portable chest x-ray HISTORY: Cough, shortness of breath. The heart is enlarged. No focal pulmonary processes. No hilar or mediastinal abnormalities. IMPRESSION: 1. Cardiomegaly 2. No acute focal pulmonary processes 7
[2019-01-13 14:47] VITALS: BP 129/76
[2019-01-13] MEDS ORDERED: Maalox 30 mL Cup PO PRN ×2 (15:12→15:15)
[2019-01-13] MEDS ORDERED: Magnesium Hydroxide (MOM) 30 mL UDC PO PRN ×2 (15:12→15:15)
[2019-01-13 15:48] LABS: CHOLESTEROL 199 mg/dL (<200); HDL -HIGH DENSITY LIPOPROTEIN 33 mg/dL (23-92); TRIGLYCERIDES 287 mg/dL (<150)
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
[2019-01-14] MEDS ORDERED: Haloperidol Lactate 5 mg/mL 1mL Vial ONE (07:30)
[2019-01-14] MEDS ORDERED: Haloperidol Lactate 5 mg/mL 1mL Vial IM ONE (07:36)
[2019-01-14] MEDS ORDERED: Multivitamin Tab PO SCH (09:00)
--- NOTE | 2019-01-14 10:23 | Internal Medicine Prog Note ---
Internal Medicine Subjective - Subjective Service Date: 01/14/19 Patient seen and examined:: with staff, chart reviewed Patient is:: awake, agitated Patient Complaints of:: cough, SOB Per staff patient has:: no adverse event, no episodes of fall, combative Internal Medicine Objective - Results Result Diagrams: 01/13/19 12:12 01/13/19 12:12 Recent Labs: Laboratory Last Values WBC 8.9 Th/cmm (4.8-10.8) 01/13/19 12:12 RBC 5.35 Mil/cmm (3.80-5.80) 01/13/19 12:12 Hgb 15.7 gm/dL (12-16) 01/13/19 12:12 Hct 47.5 % (41.0-60) 01/13/19 12:12 MCV 88.8 fl (80-99) 01/13/19 12:12 MCH 29.4 pg (27.0-31.0) 01/13/19 12:12 MCHC Differential 33.1 pg (28.0-36.0) 01/13/19 12:12 RDW 13.7 % (11.5-20.0) 01/13/19 12:12 Plt Count 223 Th/cmm (150-400) 01/13/19 12:12 MPV 9.4 fl 01/13/19 12:12 Neutrophils % 63.9 % (40.0-80.0) 01/13/19 12:12 Lymphocytes % 22.1 % (20.0-50.0) 01/13/19 12:12 Monocytes % 11.1 % (2.0-10.0) H 01/13/19 12:12 Eosinophils % 2.5 % (0.0-5.0) 01/13/19 12:12 Basophils % 0.4 % (0.0-2.0) 01/13/19 12:12 Sodium 137 mEq/L (136-145) 01/13/19 12:12 Potassium 4.0 mEq/L (3.5-5.1) 01/13/19 12:12 Chloride 104 mEq/L (98-107) 01/13/19 12:12 Carbon Dioxide 26.8 mEq/L (21.0-31.0) 01/13/19 12:12 Anion Gap 10.2 (7.0-16.0) 01/13/19 12:12 BUN 24 mg/dL (7-25) 01/13/19 12:12 Creatinine 1.4 mg/dL (0.7-1.3) H 01/13/19 12:12 Est GFR ( Amer) > 60.0 ml/min (>90) 01/13/19 12:12 Est GFR (Non-Af Amer) 53.7 ml/min 01/13/19 12:12 BUN/Creatinine Ratio 17.1 01/13/19 12:12 Glucose 116 mg/dL (70-105) H 01/13/19 12:12 Calcium 9.2 mg/dL (8.6-10.3) 01/13/19 12:12 Total Bilirubin 0.3 mg/dL (0.3-1.0) 01/13/19 12:12 AST 14 U/L (13-39) 01/13/19 12:12 ALT 12 U/L (7-52) 01/13/19 12:12 Alkaline Phosphatase 87 U/L (34-104) 01/13/19 12:12 Total Protein 8.0 gm/dL (6.0-8.3) 01/13/19 12:12 Albumin 3.6 gm/dL (4.2-5.5) L 01/13/19 12:12 Globulin 4.4 gm/dL 01/13/19 12:12 Albumin/Globulin Ratio 0.8 (1.0-1.8) L 01/13/19 12:12 Triglycerides 287 mg/dL (<150) H 01/13/19 12:12 Cholesterol 199 mg/dL (<200) 01/13/19 12:12 LDL Cholesterol Direct 142 mg/dL (75-193) 01/13/19 12:12 HDL Cholesterol 33 mg/dL (23-92) 01/13/19 12:12 TSH 1.14 uIU/ml (0.34-5.60) 01/13/19 12:12 Urine Source CLEAN C 01/13/19 12:10 Urine Color YELLOW 01/13/19 12:10 Urine Clarity HAZY (CLEAR) 01/13/19 12:10 Urine pH 8.0 (4.6 - 8.0) 01/13/19 12:10 Ur Specific [place] 1.010 (1.005-1.030) 01/13/19 12:10 Urine Protein 30 mg/dL (NEGATIVE) H 01/13/19 12:10 Urine Glucose (UA) NEGATIVE mg/dL (NEGATIVE) 01/13/19 12:10 Urine Ketones NEGATIVE mg/dL (NEGATIVE) 01/13/19 12:10 Urine Blood SMALL (NEGATIVE) H 01/13/19 12:10 Urine Nitrate NEGATIVE (NEGATIVE) 01/13/19 12:10 Urine Bilirubin NEGATIVE (NEGATIVE) 01/13/19 12:10 Urine Urobilinogen 0.2 E.U./dL (0.2 - 1.0) 01/13/19 12:10 Ur Leukocyte Esterase MODERATE (NEGATIVE) H 01/13/19 12:10 Urine RBC 10-25 /hpf (0-5) H 01/13/19 12:10 Urine WBC 50-100 /hpf (0-5) H 01/13/19 12:10 Ur Epithelial Cells NONE SEEN /lpf (FEW) 01/13/19 12:10 Urine Bacteria FEW /hpf (NONE SEEN) 01/13/19 12:10 - Physical Exam Vitals and I&O: Vital Signs Temp 97 F 01/14/19 06:10 Pulse 81 01/14/19 06:10 Resp 19 01/14/19 06:10 BP 145/85 01/14/19 06:10 Pulse Ox 96 01/14/19 06:10 Intake & Output 01/13/19 01/14/19 01/14/19 18:59 06:59 18:59 Intake Total 600 Balance 600 Weight (lbs) 68.039 kg Intake: Oral 600 Other: # Voids 1 Weight Source Estimated Active Medications: Current Medications Acetaminophen (Tylenol) 650 mg PO Q4HR PRN PRN Reason: Mild Pain / Temp above 100 Stop: 03/14/19 15:11 Al Hydrox/Mg Hydrox/Simethicone (Maalox) 30 ml PO Q4HR PRN PRN Reason: GI DISTRESS Stop: 03/14/19 15:11 Al Hydrox/Mg Hydrox/Simethicone (Maalox) 30 ml PO Q4HR PRN PRN Reason: GI DISTRESS Stop: 03/14/19 15:14 Amlodipine Besylate (Norvasc) 10 mg PO DAILY GENNA Stop: 03/15/19 08:59 Bisacodyl (Dulcolax 5 Mg Ec Tab) 5 mg PO Q12H PRN PRN Reason: Constipation Stop: 03/14/19 15:14 Docusate Sodium (Colace) 100 mg PO Q12H PRN PRN Reason: Constipation Stop: 03/14/19 15:14 Hydralazine HCl (Apresoline) 25 mg PO Q8H PRN PRN Reason: SBP ABOVE 150. Stop: 03/14/19 15:14 Lactobacillus Rhamnosus (Culturelle 15b) 1 each PO DAILY [facility] Stop: 03/15/19 08:59 Magnesium Hydroxide (Milk Of Magnesia) 30 ml PO HS PRN PRN Reason: Constipation Stop: 03/14/19 15:14 Multivitamins/Vitamin C (Theragran) 1 tab PO DAILY [facility] Stop: 03/15/19 08:59 Zolpidem Tartrate (Ambien) 5 mg PO HS PRN PRN Reason: Insomnia Stop: 03/14/19 15:11 Physical Exam: 68 y/o male patient has been combative, has a cough with sob. Chest x-ray done showed Cardiomegaly. General: weak, other (cough w/ sob.) HEENT: NC/AT Neck: Supple, No JVD Lungs: CTAB, wheezing, ronchi Cardiovascular: RRR, Normal S1 Abdomen: soft, non-tender Extremities: clear Neurological: no change Internal Medicine Assmt/Plan - Assessment Assessment: Cardiomegaly Combative Psychosis - Plan Plan: Continuation of care Continue present meds as directed Fall precaution Monitor vitals, labs. Psych consult/followup Continue present care management Nutritional Asmnt/Malnutr-PDOC - Dietary Evaluation Malnutrition Findings (Please click <Entered> for more info): see orders.
[2019-01-14] MEDS: Lactobacillus Rhamnosus GG 15 Billion CFU CAP.SPRINK PO SCH (16:52)
[2019-01-14] MEDS: Multivitamin Tab PO SCH (16:53)
[2019-01-15] MEDS: Lactobacillus Rhamnosus GG 15 Billion CFU CAP.SPRINK PO SCH (09:20)
[2019-01-15] MEDS: Multivitamin Tab PO SCH (09:20)
[2019-01-15] MEDS: Therahoney Gel 42.5gm Tube TP SCH (16:45)
--- NOTE | 2019-01-15 17:58 | Internal Medicine Prog Note ---
Internal Medicine Subjective - Subjective Service Date: 01/15/19 Patient is:: awake, agitated Patient Complaints of:: cough, SOB Per staff patient has:: no adverse event, no episodes of fall, combative Internal Medicine Objective - Results Result Diagrams: 01/13/19 12:12 01/13/19 12:12 Recent Labs: Laboratory Last Values WBC 8.9 Th/cmm (4.8-10.8) 01/13/19 12:12 RBC 5.35 Mil/cmm (3.80-5.80) 01/13/19 12:12 Hgb 15.7 gm/dL (12-16) 01/13/19 12:12 Hct 47.5 % (41.0-60) 01/13/19 12:12 MCV 88.8 fl (80-99) 01/13/19 12:12 MCH 29.4 pg (27.0-31.0) 01/13/19 12:12 MCHC Differential 33.1 pg (28.0-36.0) 01/13/19 12:12 RDW 13.7 % (11.5-20.0) 01/13/19 12:12 Plt Count 223 Th/cmm (150-400) 01/13/19 12:12 MPV 9.4 fl 01/13/19 12:12 Neutrophils % 63.9 % (40.0-80.0) 01/13/19 12:12 Lymphocytes % 22.1 % (20.0-50.0) 01/13/19 12:12 Monocytes % 11.1 % (2.0-10.0) H 01/13/19 12:12 Eosinophils % 2.5 % (0.0-5.0) 01/13/19 12:12 Basophils % 0.4 % (0.0-2.0) 01/13/19 12:12 Sodium 137 mEq/L (136-145) 01/13/19 12:12 Potassium 4.0 mEq/L (3.5-5.1) 01/13/19 12:12 Chloride 104 mEq/L (98-107) 01/13/19 12:12 Carbon Dioxide 26.8 mEq/L (21.0-31.0) 01/13/19 12:12 Anion Gap 10.2 (7.0-16.0) 01/13/19 12:12 BUN 24 mg/dL (7-25) 01/13/19 12:12 Creatinine 1.4 mg/dL (0.7-1.3) H 01/13/19 12:12 Est GFR ( Amer) > 60.0 ml/min (>90) 01/13/19 12:12 Est GFR (Non-Af Amer) 53.7 ml/min 01/13/19 12:12 BUN/Creatinine Ratio 17.1 01/13/19 12:12 Glucose 116 mg/dL (70-105) H 01/13/19 12:12 Calcium 9.2 mg/dL (8.6-10.3) 01/13/19 12:12 Total Bilirubin 0.3 mg/dL (0.3-1.0) 01/13/19 12:12 AST 14 U/L (13-39) 01/13/19 12:12 ALT 12 U/L (7-52) 01/13/19 12:12 Alkaline Phosphatase 87 U/L (34-104) 01/13/19 12:12 Total Protein 8.0 gm/dL (6.0-8.3) 01/13/19 12:12 Albumin 3.6 gm/dL (4.2-5.5) L 01/13/19 12:12 Globulin 4.4 gm/dL 01/13/19 12:12 Albumin/Globulin Ratio 0.8 (1.0-1.8) L 01/13/19 12:12 Triglycerides 287 mg/dL (<150) H 01/13/19 12:12 Cholesterol 199 mg/dL (<200) 01/13/19 12:12 LDL Cholesterol Direct 142 mg/dL (75-193) 01/13/19 12:12 HDL Cholesterol 33 mg/dL (23-92) 01/13/19 12:12 TSH 1.14 uIU/ml (0.34-5.60) 01/13/19 12:12 Urine Source CLEAN C 01/13/19 12:10 Urine Color YELLOW 01/13/19 12:10 Urine Clarity HAZY (CLEAR) 01/13/19 12:10 Urine pH 8.0 (4.6 - 8.0) 01/13/19 12:10 Ur Specific [place] 1.010 (1.005-1.030) 01/13/19 12:10 Urine Protein 30 mg/dL (NEGATIVE) H 01/13/19 12:10 Urine Glucose (UA) NEGATIVE mg/dL (NEGATIVE) 01/13/19 12:10 Urine Ketones NEGATIVE mg/dL (NEGATIVE) 01/13/19 12:10 Urine Blood SMALL (NEGATIVE) H 01/13/19 12:10 Urine Nitrate NEGATIVE (NEGATIVE) 01/13/19 12:10 Urine Bilirubin NEGATIVE (NEGATIVE) 01/13/19 12:10 Urine Urobilinogen 0.2 E.U./dL (0.2 - 1.0) 01/13/19 12:10 Ur Leukocyte Esterase MODERATE (NEGATIVE) H 01/13/19 12:10 Urine RBC 10-25 /hpf (0-5) H 01/13/19 12:10 Urine WBC 50-100 /hpf (0-5) H 01/13/19 12:10 Ur Epithelial Cells NONE SEEN /lpf (FEW) 01/13/19 12:10 Urine Bacteria FEW /hpf (NONE SEEN) 01/13/19 12:10 - Physical Exam Vitals and I&O: Vital Signs Temp 97.4 F 01/15/19 14:00 Pulse 98 01/15/19 14:00 Resp 20 01/15/19 14:00 BP 133/89 01/15/19 14:00 Pulse Ox 98 01/15/19 14:00 Intake & Output 01/14/19 01/15/19 01/15/19 18:59 06:59 18:59 Intake Total 120 Balance 120 Intake: Oral 120 Other: # Voids 3 Active Medications: Current Medications Acetaminophen (Tylenol) 650 mg PO Q4HR PRN PRN Reason: Mild Pain / Temp above 100 Stop: 03/14/19 15:11 Al Hydrox/Mg Hydrox/Simethicone (Maalox) 30 ml PO Q4HR PRN PRN Reason: GI DISTRESS Stop: 03/14/19 15:14 Amlodipine Besylate (Norvasc) 10 mg PO DAILY GENNA Stop: 03/15/19 08:59 Last Admin: 01/15/19 09:20 Dose: 10 mg Bisacodyl (Dulcolax 5 Mg Ec Tab) 5 mg PO Q12H PRN PRN Reason: Constipation Stop: 03/14/19 15:14 Divalproex Sodium (Depakote Dr) 500 mg PO BID [facility]; Protocol Stop: 03/15/19 16:59 Last Admin: 01/15/19 16:44 Dose: 500 mg Docusate Sodium (Colace) 100 mg PO Q12H PRN PRN Reason: Constipation Stop: 03/14/19 15:14 Hydralazine HCl (Apresoline) 25 mg PO Q8H PRN PRN Reason: SBP ABOVE 150. Stop: 03/14/19 15:14 Lactobacillus Rhamnosus (Culturelle 15b) 1 each PO DAILY [facility] Stop: 03/15/19 08:59 Last Admin: 01/15/19 09:20 Dose: 1 each Magnesium Hydroxide (Milk Of Magnesia) 30 ml PO HS PRN PRN Reason: Constipation Stop: 03/14/19 15:14 Multivitamins/Vitamin C (Theragran) 1 tab PO DAILY [facility] Stop: 03/15/19 08:59 Last Admin: 01/15/19 09:20 Dose: 1 tab Mupirocin (Bactroban Oint) 1 appl NS BID [facility] Stop: 01/20/19 09:01 Last Admin: 01/15/19 16:44 Dose: 1 appl Ondansetron HCl (Zofran Odt) 4 mg PO Q4HR PRN PRN Reason: nausea/vomiting Stop: 03/15/19 10:50 Quetiapine Fumarate 100 mg/ (Quetiapine Fumarate 50 mg) 150 mg PO HS [facility] Stop: 03/15/19 20:59 Last Admin: 01/14/19 21:44 Dose: Not Given Wound Care/Dressing Products (Therahoney) 1 appl TP DAILY [facility] Stop: 03/16/19 16:29 Last Admin: 01/15/19 16:45 Dose: 1 appl Zolpidem Tartrate (Ambien) 5 mg PO HS PRN PRN Reason: Insomnia Stop: 03/14/19 15:11 General: weak, other (cough w/ sob.) HEENT: NC/AT Neck: Supple, No JVD Lungs: CTAB, wheezing, ronchi Cardiovascular: RRR, Normal S1 Abdomen: soft, non-tender Extremities: clear Neurological: no change Internal Medicine Assmt/Plan - Assessment Assessment: Cardiomegaly Combative Psychosis - Plan Plan: Continuation of care Continue present meds as directed Fall precaution Monitor vitals, labs. Psych consult/followup Continue present care management
[2019-01-16] MEDS: Multivitamin Tab PO SCH (09:30)
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
--- NOTE | 2019-01-16 15:17 | Internal Medicine Prog Note ---
Internal Medicine Subjective - Subjective Service Date: 01/16/19 Patient is:: awake, agitated Patient Complaints of:: cough, SOB Per staff patient has:: no adverse event, no episodes of fall, combative Internal Medicine Objective - Results Result Diagrams: 01/13/19 12:12 01/13/19 12:12 Recent Labs: Laboratory Last Values WBC 8.9 Th/cmm (4.8-10.8) 01/13/19 12:12 RBC 5.35 Mil/cmm (3.80-5.80) 01/13/19 12:12 Hgb 15.7 gm/dL (12-16) 01/13/19 12:12 Hct 47.5 % (41.0-60) 01/13/19 12:12 MCV 88.8 fl (80-99) 01/13/19 12:12 MCH 29.4 pg (27.0-31.0) 01/13/19 12:12 MCHC Differential 33.1 pg (28.0-36.0) 01/13/19 12:12 RDW 13.7 % (11.5-20.0) 01/13/19 12:12 Plt Count 223 Th/cmm (150-400) 01/13/19 12:12 MPV 9.4 fl 01/13/19 12:12 Neutrophils % 63.9 % (40.0-80.0) 01/13/19 12:12 Lymphocytes % 22.1 % (20.0-50.0) 01/13/19 12:12 Monocytes % 11.1 % (2.0-10.0) H 01/13/19 12:12 Eosinophils % 2.5 % (0.0-5.0) 01/13/19 12:12 Basophils % 0.4 % (0.0-2.0) 01/13/19 12:12 Sodium 137 mEq/L (136-145) 01/13/19 12:12 Potassium 4.0 mEq/L (3.5-5.1) 01/13/19 12:12 Chloride 104 mEq/L (98-107) 01/13/19 12:12 Carbon Dioxide 26.8 mEq/L (21.0-31.0) 01/13/19 12:12 Anion Gap 10.2 (7.0-16.0) 01/13/19 12:12 BUN 24 mg/dL (7-25) 01/13/19 12:12 Creatinine 1.4 mg/dL (0.7-1.3) H 01/13/19 12:12 Est GFR ( Amer) > 60.0 ml/min (>90) 01/13/19 12:12 Est GFR (Non-Af Amer) 53.7 ml/min 01/13/19 12:12 BUN/Creatinine Ratio 17.1 01/13/19 12:12 Glucose 116 mg/dL (70-105) H 01/13/19 12:12 Calcium 9.2 mg/dL (8.6-10.3) 01/13/19 12:12 Total Bilirubin 0.3 mg/dL (0.3-1.0) 01/13/19 12:12 AST 14 U/L (13-39) 01/13/19 12:12 ALT 12 U/L (7-52) 01/13/19 12:12 Alkaline Phosphatase 87 U/L (34-104) 01/13/19 12:12 Total Protein 8.0 gm/dL (6.0-8.3) 01/13/19 12:12 Albumin 3.6 gm/dL (4.2-5.5) L 01/13/19 12:12 Globulin 4.4 gm/dL 01/13/19 12:12 Albumin/Globulin Ratio 0.8 (1.0-1.8) L 01/13/19 12:12 Triglycerides 287 mg/dL (<150) H 01/13/19 12:12 Cholesterol 199 mg/dL (<200) 01/13/19 12:12 LDL Cholesterol Direct 142 mg/dL (75-193) 01/13/19 12:12 HDL Cholesterol 33 mg/dL (23-92) 01/13/19 12:12 TSH 1.14 uIU/ml (0.34-5.60) 01/13/19 12:12 Urine Source CLEAN C 01/13/19 12:10 Urine Color YELLOW 01/13/19 12:10 Urine Clarity HAZY (CLEAR) 01/13/19 12:10 Urine pH 8.0 (4.6 - 8.0) 01/13/19 12:10 Ur Specific [place] 1.010 (1.005-1.030) 01/13/19 12:10 Urine Protein 30 mg/dL (NEGATIVE) H 01/13/19 12:10 Urine Glucose (UA) NEGATIVE mg/dL (NEGATIVE) 01/13/19 12:10 Urine Ketones NEGATIVE mg/dL (NEGATIVE) 01/13/19 12:10 Urine Blood SMALL (NEGATIVE) H 01/13/19 12:10 Urine Nitrate NEGATIVE (NEGATIVE) 01/13/19 12:10 Urine Bilirubin NEGATIVE (NEGATIVE) 01/13/19 12:10 Urine Urobilinogen 0.2 E.U./dL (0.2 - 1.0) 01/13/19 12:10 Ur Leukocyte Esterase MODERATE (NEGATIVE) H 01/13/19 12:10 Urine RBC 10-25 /hpf (0-5) H 01/13/19 12:10 Urine WBC 50-100 /hpf (0-5) H 01/13/19 12:10 Ur Epithelial Cells NONE SEEN /lpf (FEW) 01/13/19 12:10 Urine Bacteria FEW /hpf (NONE SEEN) 01/13/19 12:10 - Physical Exam Vitals and I&O: Vital Signs Temp 97.5 F 01/16/19 14:59 Pulse 93 01/16/19 14:59 Resp 19 01/16/19 14:59 BP 132/84 01/16/19 14:59 Pulse Ox 98 01/16/19 14:59 Intake & Output 01/15/19 01/16/19 01/16/19 18:59 06:59 18:59 Intake Total 1000 240 Balance 1000 240 Intake: Oral 1000 240 Other: # Voids 4 2 # Bowel Movements 1 0 Active Medications: Current Medications Acetaminophen (Tylenol) 650 mg PO Q4HR PRN PRN Reason: Mild Pain / Temp above 100 Stop: 03/14/19 15:11 Al Hydrox/Mg Hydrox/Simethicone (Maalox) 30 ml PO Q4HR PRN PRN Reason: GI DISTRESS Stop: 03/14/19 15:14 Amlodipine Besylate (Norvasc) 10 mg PO DAILY [facility] Stop: 03/15/19 08:59 Last Admin: 01/15/19 09:20 Dose: 10 mg Bisacodyl (Dulcolax 5 Mg Ec Tab) 5 mg PO Q12H PRN PRN Reason: Constipation Stop: 03/14/19 15:14 Divalproex Sodium (Depakote Dr) 500 mg PO BID [facility]; Protocol Stop: 03/15/19 16:59 Last Admin: 01/15/19 16:44 Dose: 500 mg Docusate Sodium (Colace) 100 mg PO Q12H PRN PRN Reason: Constipation Stop: 03/14/19 15:14 Hydralazine HCl (Apresoline) 25 mg PO Q8H PRN PRN Reason: SBP ABOVE 150. Stop: 03/14/19 15:14 Lactobacillus Rhamnosus (Culturelle 15b) 1 each PO DAILY [facility] Stop: 03/15/19 08:59 Last Admin: 01/15/19 09:20 Dose: 1 each Magnesium Hydroxide (Milk Of Magnesia) 30 ml PO HS PRN PRN Reason: Constipation Stop: 03/14/19 15:14 Multivitamins/Vitamin C (Theragran) 1 tab PO DAILY [facility] Stop: 03/15/19 08:59 Last Admin: 01/15/19 09:20 Dose: 1 tab Mupirocin (Bactroban Oint) 1 appl NS BID [facility] Stop: 01/20/19 09:01 Last Admin: 01/15/19 16:44 Dose: 1 appl Ondansetron HCl (Zofran Odt) 4 mg PO Q4HR PRN PRN Reason: nausea/vomiting Stop: 03/15/19 10:50 Quetiapine Fumarate 150 mg/ (Quetiapine Fumarate 25 mg) 175 mg PO HS [facility] Stop: 03/17/19 20:59 Wound Care/Dressing Products (Therahoney) 1 appl TP DAILY [facility] Stop: 03/16/19 16:29 Last Admin: 01/15/19 16:45 Dose: 1 appl Zolpidem Tartrate (Ambien) 5 mg PO HS PRN PRN Reason: Insomnia Stop: 03/14/19 15:11 Physical Exam: 68 y/o male patient has been combative, has a cough with sob. Chest x-ray done showed Cardiomegaly. General: weak, other (cough w/ sob.) HEENT: NC/AT Neck: Supple, No JVD Lungs: CTAB, wheezing, ronchi Cardiovascular: RRR, Normal S1 Abdomen: soft, non-tender Extremities: clear Neurological: no change Internal Medicine Assmt/Plan - Assessment Assessment: Cardiomegaly Combative Psychosis Aggressive behavior. - Plan Plan: Continuation of care Continue present meds as directed Fall precaution Monitor vitals, labs. Psych consult/followup Continue present care management Nutritional Asmnt/Malnutr-PDOC - Dietary Evaluation Malnutrition Findings (Please click <Entered> for more info): Nutritional Asmnt/Malnutrition Start: 01/16/19 11: 44 Text: Status: Complete Freq: Protocol: Document 01/16/19 11:44 LCHENG (Rec: 01/16/19 11:58 [email or web address] [email or web address]) Nutritional Asmnt/Malnutrition Patient General Information Nutritional Screening Moderate Risk Diagnosis psychosis Pertinent Medical Hx/Surgical Hx HTN, psychosis, constipation, BPH Subjective Information Consult received for BLE wounds. Pt seen eating lunch in dining room, apeared good appetite. Per EMR, PO intake 100%. Current Diet Order/ Nutrition Support regular Pertinent Medications colace, culturelle, theragran Pertinent Labs 01/13 Cr 1.4, Glucose 116, Alb 3.6 Nutritional Hx/Data Height 1.63 m Height (Calculated Centimeters) 162.6 Current Weight (lbs) 68.039 kg Weight (Calculated Kilograms) 68.0 Weight (Calculated Grams) 03792.9 [place] Body Weight 130 Body Mass Index (BMI) 25.7 Weight Status Overweight GI Symptoms GI Symptoms None Last BM 5/2 Difficult in: None Skin Integrity/Comment: erythema ulcer to left calf, pink to right leg venita 17 Current %PO Good (75-100%) Estimated Nutritional Goals BEE in Kcals: Using Current wt Calories/Kcals/Kg 23-27 Kcals Calculated 2600-5015 Protein: Using Current wt Protein g/k Protein Calculated 68 Fluid: ml 1564-1836ml (1ml/kcal) Nutritional Problem 1. Problem Problem increased nutrition needs Etiology impaired skin integrity Signs/Symptoms: BLE wounds Malnutrition Alert Is there a minimum of two criteria No selected? Query Text:Check all the applicable criteria. A minimum of two criteria are recommended for diagnosis of either severe or non-severe malnutrition. Malnutrition Related to Morbid Obesity Malnutrition related to morbid obesity No Intervention/Recommendation Comments 1. Continue with regular diet as ordered. 2. Monitor PO intake, wt, labs and skin integrity 3. F/U as low risk in 7 days Expected Outcomes/Goals Expected Outcomes/Goals 1. PO intake to meet at least 75% of nutritional needs. 2. Wt stability, skin to remain intact, labs to approach WNL.
[2019-01-16] MEDS: Lactobacillus Rhamnosus GG 15 Billion CFU CAP.SPRINK PO SCH (15:42)
[2019-01-16] MEDS: Therahoney Gel 42.5gm Tube TP SCH (16:49)
[2019-01-16] MEDS ORDERED: QUETIAPINE FUMARATE PO SCH (21:00)
--- NOTE | 2019-01-17 01:50 | Progress Notes ---
DATE: 01/16/2019 FOLLOWUP PROGRESS NOTE PROGRESS ON THE UNIT: Case discussed with staff of the patient, reviewed records. The patient continues to be irritable. He refused to take Depakote; they have to prompt him to take it. He continues to be unpredictable, impulsive, needing redirection. He continues to have poor insight. The custodial said that they do not feel they can take care of his needs, especially because they are off the street and it is an open facility and he has been acting erratic. I will be increasing his Seroquel to 175 mg at bedtime. No side effects to the medication, no sedation, no nausea, no extrapyramidal symptoms. His lab work showed CBC with high monocytes, the rest within normal range. Chemistry panel with high creatinine at 1.4, high blood sugar 116, low albumin, and high triglycerides for which he will be deferring to the medical doctor. Urinalysis with proteinuria and some blood. Ask the medical doctor to make sure Dr. Goldsmith to pay attention to it. We will continue to work with the patient in group therapy and milieu therapy, adjust the medication as needed. JOB# [id number]
[2019-01-17] MEDS: Therahoney Gel 42.5gm Tube TP SCH (09:15)
[2019-01-17] MEDS: Lactobacillus Rhamnosus GG 15 Billion CFU CAP.SPRINK PO SCH (09:17)
[2019-01-17] MEDS: Multivitamin Tab PO SCH (09:17)
--- NOTE | 2019-01-17 21:15 | Progress Notes ---
DATE: 01/17/2019 SUBJECTIVE: Case was discussed with staff of the patient, reviewed records. The patient continues to refuse to take Depakote, then I discussed him what he will take and he reported when taking Depakote he feels like falling, he is also on Seroquel with no side effects, no sedation or nausea, no extrapyramidal symptoms. We will continue to work with the patient in group therapy, milieu therapy, and adjust the medication as needed. JOB# [id number]
--- NOTE | 2019-01-18 00:36 | Progress Notes ---
DATE: 01/17/2019 SUBJECTIVE: The patient was seen in the activity room. The patient appears to be guarded, easily gets frustrated. Otherwise, the patient appears to be in no acute distress. OBJECTIVE: VITAL SIGNS: Temperature 98.8. After giving saline, blood pressure 140/82, respirations 20 and 94% on room air. HEENT: Head is atraumatic and normocephalic. EYES: Bilateral conjuctivae are clear. Bilateral pupils are equally round and reactive. NECK: Supple. No JVD. CARDIOVASCULAR: S1 and S2, without murmur. PULMONARY: Clear to auscultation. GASTROINTESTINAL: Soft and nontender without guarding. Positive bowel sounds. MUSCULOSKELETAL: No clubbing. No cyanosis noted. ASSESSMENT: 1. Bipolar disorder. 2. Hypertension. 3. Osteoarthritis. PLAN: We will keep the patient [facility]. We will follow up with psychiatrist to monitor the patient's condition and behavior. Treatment plans were discussed with the patient's nurse. Treatment plans were discussed with Dr. Goldsmith. JOB# [id number]
[2019-01-18] MEDS: Multivitamin Tab PO SCH (09:00)
[2019-01-18] MEDS: Lactobacillus Rhamnosus GG 15 Billion CFU CAP.SPRINK PO SCH (09:02)
[2019-01-18] MEDS: Therahoney Gel 42.5gm Tube TP SCH (09:04)
--- NOTE | 2019-01-18 12:09 | Internal Medicine Prog Note ---
Internal Medicine Subjective - Subjective Patient seen and examined:: chart reviewed Patient is:: awake, agitated, other (withdrawn, non compliant with meds) Patient Complaints of:: cough, SOB Per staff patient has:: no adverse event, no episodes of fall, combative Internal Medicine Objective - Results Result Diagrams: 01/13/19 12:12 01/13/19 12:12 Recent Labs: Laboratory Last Values WBC 8.9 Th/cmm (4.8-10.8) 01/13/19 12:12 RBC 5.35 Mil/cmm (3.80-5.80) 01/13/19 12:12 Hgb 15.7 gm/dL (12-16) 01/13/19 12:12 Hct 47.5 % (41.0-60) 01/13/19 12:12 MCV 88.8 fl (80-99) 01/13/19 12:12 MCH 29.4 pg (27.0-31.0) 01/13/19 12:12 MCHC Differential 33.1 pg (28.0-36.0) 01/13/19 12:12 RDW 13.7 % (11.5-20.0) 01/13/19 12:12 Plt Count 223 Th/cmm (150-400) 01/13/19 12:12 MPV 9.4 fl 01/13/19 12:12 Neutrophils % 63.9 % (40.0-80.0) 01/13/19 12:12 Lymphocytes % 22.1 % (20.0-50.0) 01/13/19 12:12 Monocytes % 11.1 % (2.0-10.0) H 01/13/19 12:12 Eosinophils % 2.5 % (0.0-5.0) 01/13/19 12:12 Basophils % 0.4 % (0.0-2.0) 01/13/19 12:12 Sodium 137 mEq/L (136-145) 01/13/19 12:12 Potassium 4.0 mEq/L (3.5-5.1) 01/13/19 12:12 Chloride 104 mEq/L (98-107) 01/13/19 12:12 Carbon Dioxide 26.8 mEq/L (21.0-31.0) 01/13/19 12:12 Anion Gap 10.2 (7.0-16.0) 01/13/19 12:12 BUN 24 mg/dL (7-25) 01/13/19 12:12 Creatinine 1.4 mg/dL (0.7-1.3) H 01/13/19 12:12 Est GFR ( Amer) > 60.0 ml/min (>90) 01/13/19 12:12 Est GFR (Non-Af Amer) 53.7 ml/min 01/13/19 12:12 BUN/Creatinine Ratio 17.1 01/13/19 12:12 Glucose 116 mg/dL (70-105) H 01/13/19 12:12 Calcium 9.2 mg/dL (8.6-10.3) 01/13/19 12:12 Total Bilirubin 0.3 mg/dL (0.3-1.0) 01/13/19 12:12 AST 14 U/L (13-39) 01/13/19 12:12 ALT 12 U/L (7-52) 01/13/19 12:12 Alkaline Phosphatase 87 U/L (34-104) 01/13/19 12:12 Total Protein 8.0 gm/dL (6.0-8.3) 01/13/19 12:12 Albumin 3.6 gm/dL (4.2-5.5) L 01/13/19 12:12 Globulin 4.4 gm/dL 01/13/19 12:12 Albumin/Globulin Ratio 0.8 (1.0-1.8) L 01/13/19 12:12 Triglycerides 287 mg/dL (<150) H 01/13/19 12:12 Cholesterol 199 mg/dL (<200) 01/13/19 12:12 LDL Cholesterol Direct 142 mg/dL (75-193) 01/13/19 12:12 HDL Cholesterol 33 mg/dL (23-92) 01/13/19 12:12 TSH 1.14 uIU/ml (0.34-5.60) 01/13/19 12:12 Urine Source CLEAN C 01/13/19 12:10 Urine Color YELLOW 01/13/19 12:10 Urine Clarity HAZY (CLEAR) 01/13/19 12:10 Urine pH 8.0 (4.6 - 8.0) 01/13/19 12:10 Ur Specific [place] 1.010 (1.005-1.030) 01/13/19 12:10 Urine Protein 30 mg/dL (NEGATIVE) H 01/13/19 12:10 Urine Glucose (UA) NEGATIVE mg/dL (NEGATIVE) 01/13/19 12:10 Urine Ketones NEGATIVE mg/dL (NEGATIVE) 01/13/19 12:10 Urine Blood SMALL (NEGATIVE) H 01/13/19 12:10 Urine Nitrate NEGATIVE (NEGATIVE) 01/13/19 12:10 Urine Bilirubin NEGATIVE (NEGATIVE) 01/13/19 12:10 Urine Urobilinogen 0.2 E.U./dL (0.2 - 1.0) 01/13/19 12:10 Ur Leukocyte Esterase MODERATE (NEGATIVE) H 01/13/19 12:10 Urine RBC 10-25 /hpf (0-5) H 01/13/19 12:10 Urine WBC 50-100 /hpf (0-5) H 01/13/19 12:10 Ur Epithelial Cells NONE SEEN /lpf (FEW) 01/13/19 12:10 Urine Bacteria FEW /hpf (NONE SEEN) 01/13/19 12:10 RPR NONREACTIVE (NONREACTIVE) 01/13/19 12:12 - Physical Exam Vitals and I&O: Vital Signs Temp 97.4 F 01/18/19 06:26 Pulse 76 01/18/19 09:00 Resp 19 01/18/19 06:26 BP 135/85 01/18/19 09:00 Pulse Ox 95 01/18/19 06:26 Intake & Output 01/17/19 01/18/19 01/18/19 18:59 06:59 18:59 Intake Total 1500 240 Balance 1500 240 Intake: Oral 1500 240 Other: # Voids 4 3 # Bowel Movements 0 0 Active Medications: Current Medications Acetaminophen (Tylenol) 650 mg PO Q4HR PRN PRN Reason: Mild Pain / Temp above 100 Stop: 03/14/19 15:11 Al Hydrox/Mg Hydrox/Simethicone (Maalox) 30 ml PO Q4HR PRN PRN Reason: GI DISTRESS Stop: 03/14/19 15:14 Amlodipine Besylate (Norvasc) 10 mg PO DAILY [facility] Stop: 03/15/19 08:59 Last Admin: 01/18/19 09:00 Dose: 10 mg Aripiprazole (Abilify) 5 mg PO HS [facility]; Protocol Stop: 03/18/19 20:59 Last Admin: 01/17/19 20:42 Dose: 5 mg Bisacodyl (Dulcolax 5 Mg Ec Tab) 5 mg PO Q12H PRN PRN Reason: Constipation Stop: 03/14/19 15:14 Ciprofloxacin (Cipro) 500 mg PO BID [facility] Stop: 01/26/19 09:01 Last Admin: 01/18/19 09:02 Dose: 500 mg Docusate Sodium (Colace) 100 mg PO Q12H PRN PRN Reason: Constipation Stop: 03/14/19 15:14 Hydralazine HCl (Apresoline) 25 mg PO Q8H PRN PRN Reason: SBP ABOVE 150. Stop: 03/14/19 15:14 Lactobacillus Rhamnosus (Culturelle 15b) 1 each PO DAILY [facility] Stop: 03/15/19 08:59 Last Admin: 01/18/19 09:02 Dose: 1 each Magnesium Hydroxide (Milk Of Magnesia) 30 ml PO HS PRN PRN Reason: Constipation Stop: 03/14/19 15:14 Multivitamins/Vitamin C (Theragran) 1 tab PO DAILY [facility] Stop: 03/15/19 08:59 Last Admin: 01/18/19 09:00 Dose: 1 tab Mupirocin (Bactroban Oint) 1 appl NS BID [facility] Stop: 01/20/19 09:01 Last Admin: 01/17/19 17:21 Dose: Not Given Ondansetron HCl (Zofran Odt) 4 mg PO Q4HR PRN PRN Reason: nausea/vomiting Stop: 03/15/19 10:50 Wound Care/Dressing Products (Therahoney) 1 appl TP DAILY [facility] Stop: 03/16/19 16:29 Last Admin: 01/18/19 09:04 Dose: 1 appl Zolpidem Tartrate (Ambien) 5 mg PO HS PRN PRN Reason: Insomnia Stop: 03/14/19 15:11 Last Admin: 01/17/19 20:46 Dose: 5 mg Physical Exam: 68 y/o male patient has been combative, has a cough with sob. Chest x-ray done showed Cardiomegaly. General: weak, other (cough w/ sob.) HEENT: NC/AT Neck: Supple, No JVD Lungs: CTAB, wheezing, ronchi Cardiovascular: RRR, Normal S1 Abdomen: soft, non-tender Extremities: clear Neurological: no change Internal Medicine Assmt/Plan - Assessment Assessment: Cardiomegaly Combative Psychosis Aggressive behavior. - Plan Plan: Continuation of care Continue present meds as directed Fall precaution Monitor vitals, labs. Psych consult/followup Continue present care management Nutritional Asmnt/Malnutr-PDOC - Dietary Evaluation Malnutrition Findings (Please click <Entered> for more info): Nutritional Asmnt/Malnutrition Start: 01/16/19 11: 44 Text: Status: Complete Freq: Protocol: Document 01/16/19 11:44 LCCRISTINAG (Rec: 01/16/19 11:58 LCCRISTINAG [email or web address]) Nutritional Asmnt/Malnutrition Patient General Information Nutritional Screening Moderate Risk Diagnosis psychosis Pertinent Medical Hx/Surgical Hx HTN, psychosis, constipation, BPH Subjective Information Consult received for BLE wounds. Pt seen eating lunch in dining room, apeared good appetite. Per EMR, PO intake 100%. Current Diet Order/ Nutrition Support regular Pertinent Medications colace, culturelle, theragran Pertinent Labs 01/13 Cr 1.4, Glucose 116, Alb 3.6 Nutritional Hx/Data Height 1.63 m Height (Calculated Centimeters) 162.6 Current Weight (lbs) 68.039 kg Weight (Calculated Kilograms) 68.0 Weight (Calculated Grams) 48370.9 [place] Body Weight 130 Body Mass Index (BMI) 25.7 Weight Status Overweight GI Symptoms GI Symptoms None Last BM 5/2 Difficult in: None Skin Integrity/Comment: erythema ulcer to left calf, pink to right leg venita 17 Current %PO Good (75-100%) Estimated Nutritional Goals BEE in Kcals: Using Current wt Calories/Kcals/Kg 23-27 Kcals Calculated 5746-2906 Protein: Using Current wt Protein g/k Protein Calculated 68 Fluid: ml 1564-1836ml (1ml/kcal) Nutritional Problem 1. Problem Problem increased nutrition needs Etiology impaired skin integrity Signs/Symptoms: BLE wounds Malnutrition Alert Is there a minimum of two criteria No selected? Query Text:Check all the applicable criteria. A minimum of two criteria are recommended for diagnosis of either severe or non-severe malnutrition. Malnutrition Related to Morbid Obesity Malnutrition related to morbid obesity No Intervention/Recommendation Comments 1. Continue with regular diet as ordered. 2. Monitor PO intake, wt, labs and skin integrity 3. F/U as low risk in 7 days Expected Outcomes/Goals Expected Outcomes/Goals 1. PO intake to meet at least 75% of nutritional needs. 2. Wt stability, skin to remain intact, labs to approach WNL.
--- NOTE | 2019-01-18 21:54 | Progress Notes ---
DATE: 01/18/2019 Case was discussed with staff of the patient, reviewed records. The patient took the Abilify with no side effects. He is more cooperative today. Sleeping better, eating better. He is minimizing the events that led to his admission. He was very aggressive and actually he was trying to find a place that will take him because he needed more supervision than where he was because of aggressive behavior and no side effects of the medication, no sedation, no nausea, no extrapyramidal symptoms. He was taken off the Seroquel and Depakote. We will continue to work with the patient in group therapy, milieu therapy, and adjust the medication as needed. JOB# [id number]
[2019-01-19] MEDS: Lactobacillus Rhamnosus GG 15 Billion CFU CAP.SPRINK PO SCH (09:41)
[2019-01-19] MEDS: Therahoney Gel 42.5gm Tube TP SCH (09:41)
[2019-01-19] MEDS: Multivitamin Tab PO SCH (09:41)
--- NOTE | 2019-01-19 13:51 | Internal Medicine Prog Note ---
Internal Medicine Subjective - Subjective Service Date: 01/19/19 Patient seen and examined:: with staff Patient is:: awake, agitated, other (withdrawn, non compliant with meds) Patient Complaints of:: cough, SOB Per staff patient has:: no adverse event, no episodes of fall, agitated, combative Internal Medicine Objective - Results Result Diagrams: 01/13/19 12:12 01/13/19 12:12 Recent Labs: Laboratory Last Values WBC 8.9 Th/cmm (4.8-10.8) 01/13/19 12:12 RBC 5.35 Mil/cmm (3.80-5.80) 01/13/19 12:12 Hgb 15.7 gm/dL (12-16) 01/13/19 12:12 Hct 47.5 % (41.0-60) 01/13/19 12:12 MCV 88.8 fl (80-99) 01/13/19 12:12 MCH 29.4 pg (27.0-31.0) 01/13/19 12:12 MCHC Differential 33.1 pg (28.0-36.0) 01/13/19 12:12 RDW 13.7 % (11.5-20.0) 01/13/19 12:12 Plt Count 223 Th/cmm (150-400) 01/13/19 12:12 MPV 9.4 fl 01/13/19 12:12 Neutrophils % 63.9 % (40.0-80.0) 01/13/19 12:12 Lymphocytes % 22.1 % (20.0-50.0) 01/13/19 12:12 Monocytes % 11.1 % (2.0-10.0) H 01/13/19 12:12 Eosinophils % 2.5 % (0.0-5.0) 01/13/19 12:12 Basophils % 0.4 % (0.0-2.0) 01/13/19 12:12 Sodium 137 mEq/L (136-145) 01/13/19 12:12 Potassium 4.0 mEq/L (3.5-5.1) 01/13/19 12:12 Chloride 104 mEq/L (98-107) 01/13/19 12:12 Carbon Dioxide 26.8 mEq/L (21.0-31.0) 01/13/19 12:12 Anion Gap 10.2 (7.0-16.0) 01/13/19 12:12 BUN 24 mg/dL (7-25) 01/13/19 12:12 Creatinine 1.4 mg/dL (0.7-1.3) H 01/13/19 12:12 Est GFR ( Amer) > 60.0 ml/min (>90) 01/13/19 12:12 Est GFR (Non-Af Amer) 53.7 ml/min 01/13/19 12:12 BUN/Creatinine Ratio 17.1 01/13/19 12:12 Glucose 116 mg/dL (70-105) H 01/13/19 12:12 Calcium 9.2 mg/dL (8.6-10.3) 01/13/19 12:12 Total Bilirubin 0.3 mg/dL (0.3-1.0) 01/13/19 12:12 AST 14 U/L (13-39) 01/13/19 12:12 ALT 12 U/L (7-52) 01/13/19 12:12 Alkaline Phosphatase 87 U/L (34-104) 01/13/19 12:12 Total Protein 8.0 gm/dL (6.0-8.3) 01/13/19 12:12 Albumin 3.6 gm/dL (4.2-5.5) L 01/13/19 12:12 Globulin 4.4 gm/dL 01/13/19 12:12 Albumin/Globulin Ratio 0.8 (1.0-1.8) L 01/13/19 12:12 Triglycerides 287 mg/dL (<150) H 01/13/19 12:12 Cholesterol 199 mg/dL (<200) 01/13/19 12:12 LDL Cholesterol Direct 142 mg/dL (75-193) 01/13/19 12:12 HDL Cholesterol 33 mg/dL (23-92) 01/13/19 12:12 TSH 1.14 uIU/ml (0.34-5.60) 01/13/19 12:12 Urine Source CLEAN C 01/13/19 12:10 Urine Color YELLOW 01/13/19 12:10 Urine Clarity HAZY (CLEAR) 01/13/19 12:10 Urine pH 8.0 (4.6 - 8.0) 01/13/19 12:10 Ur Specific [place] 1.010 (1.005-1.030) 01/13/19 12:10 Urine Protein 30 mg/dL (NEGATIVE) H 01/13/19 12:10 Urine Glucose (UA) NEGATIVE mg/dL (NEGATIVE) 01/13/19 12:10 Urine Ketones NEGATIVE mg/dL (NEGATIVE) 01/13/19 12:10 Urine Blood SMALL (NEGATIVE) H 01/13/19 12:10 Urine Nitrate NEGATIVE (NEGATIVE) 01/13/19 12:10 Urine Bilirubin NEGATIVE (NEGATIVE) 01/13/19 12:10 Urine Urobilinogen 0.2 E.U./dL (0.2 - 1.0) 01/13/19 12:10 Ur Leukocyte Esterase MODERATE (NEGATIVE) H 01/13/19 12:10 Urine RBC 10-25 /hpf (0-5) H 01/13/19 12:10 Urine WBC 50-100 /hpf (0-5) H 01/13/19 12:10 Ur Epithelial Cells NONE SEEN /lpf (FEW) 01/13/19 12:10 Urine Bacteria FEW /hpf (NONE SEEN) 01/13/19 12:10 RPR NONREACTIVE (NONREACTIVE) 01/13/19 12:12 - Physical Exam Vitals and I&O: Vital Signs Temp 97.5 F 01/19/19 06:00 Pulse 78 01/19/19 09:41 Resp 18 01/19/19 06:00 BP 154/95 01/19/19 09:41 Pulse Ox 98 01/19/19 06:00 Intake & Output 01/18/19 01/19/19 01/19/19 18:59 06:59 18:59 Intake Total 120 Balance 120 Intake: Oral 120 Other: # Voids 2 3 # Bowel Movements 0 Active Medications: Current Medications Acetaminophen (Tylenol) 650 mg PO Q4HR PRN PRN Reason: Mild Pain / Temp above 100 Stop: 03/14/19 15:11 Al Hydrox/Mg Hydrox/Simethicone (Maalox) 30 ml PO Q4HR PRN PRN Reason: GI DISTRESS Stop: 03/14/19 15:14 Amlodipine Besylate (Norvasc) 10 mg PO DAILY [facility] Stop: 03/15/19 08:59 Last Admin: 05/06/19 09:41 Dose: 10 mg Aripiprazole (Abilify) 5 mg PO HS [facility]; Protocol Stop: 03/18/19 20:59 Last Admin: 01/18/19 21:58 Dose: 5 mg Bisacodyl (Dulcolax 5 Mg Ec Tab) 5 mg PO Q12H PRN PRN Reason: Constipation Stop: 03/14/19 15:14 Ciprofloxacin (Cipro) 500 mg PO BID [facility] Stop: 01/26/19 09:01 Last Admin: 01/19/19 09:41 Dose: 500 mg Docusate Sodium (Colace) 100 mg PO Q12H PRN PRN Reason: Constipation Stop: 03/14/19 15:14 Hydralazine HCl (Apresoline) 25 mg PO Q8H PRN PRN Reason: SBP ABOVE 150. Stop: 03/14/19 15:14 Lactobacillus Rhamnosus (Culturelle 15b) 1 each PO DAILY [facility] Stop: 03/15/19 08:59 Last Admin: 01/19/19 09:41 Dose: 1 each Magnesium Hydroxide (Milk Of Magnesia) 30 ml PO HS PRN PRN Reason: Constipation Stop: 03/14/19 15:14 Multivitamins/Vitamin C (Theragran) 1 tab PO DAILY [facility] Stop: 03/15/19 08:59 Last Admin: 01/19/19 09:41 Dose: 1 tab Mupirocin (Bactroban Oint) 1 appl NS BID [facility] Stop: 01/20/19 09:01 Last Admin: 01/19/19 09:41 Dose: 1 appl Ondansetron HCl (Zofran Odt) 4 mg PO Q4HR PRN PRN Reason: nausea/vomiting Stop: 03/15/19 10:50 Wound Care/Dressing Products (Therahoney) 1 appl TP DAILY [facility] Stop: 03/16/19 16:29 Last Admin: 01/19/19 09:41 Dose: 1 appl Zolpidem Tartrate (Ambien) 5 mg PO HS PRN PRN Reason: Insomnia Stop: 03/14/19 15:11 Last Admin: 01/18/19 21:58 Dose: 5 mg Physical Exam: 68 y/o male patient has been combative, has a mild cough with sob. Chest x-ray done showed Cardiomegaly. General: weak, other (mild cough w/ sob.) HEENT: NC/AT Neck: Supple, No JVD Lungs: CTAB, wheezing, ronchi Cardiovascular: RRR, Normal S1 Abdomen: soft, non-tender Extremities: clear Neurological: no change Internal Medicine Assmt/Plan - Assessment Assessment: Cardiomegaly Combative Psychosis Aggressive behavior. - Plan Plan: Continuation of care Continue present meds as directed Fall precaution Monitor vitals, labs. Psych consult/followup Continue present care management Nutritional Asmnt/Malnutr-PDOC - Dietary Evaluation Malnutrition Findings (Please click <Entered> for more info): Nutritional Asmnt/Malnutrition Start: 01/16/19 11: 44 Text: Status: Complete Freq: Protocol: Document 01/16/19 11:44 LCCRISTINAG (Rec: 01/16/19 11:58 [facility] [email or web address]) Nutritional Asmnt/Malnutrition Patient General Information Nutritional Screening Moderate Risk Diagnosis psychosis Pertinent Medical Hx/Surgical Hx HTN, psychosis, constipation, BPH Subjective Information Consult received for BLE wounds. Pt seen eating lunch in dining room, apeared good appetite. Per EMR, PO intake 100%. Current Diet Order/ Nutrition Support regular Pertinent Medications colace, culturelle, theragran Pertinent Labs 01/13 Cr 1.4, Glucose 116, Alb 3.6 Nutritional Hx/Data Height 1.63 m Height (Calculated Centimeters) 162.6 Current Weight (lbs) 68.039 kg Weight (Calculated Kilograms) 68.0 Weight (Calculated Grams) 17682.9 [place] Body Weight 130 Body Mass Index (BMI) 25.7 Weight Status Overweight GI Symptoms GI Symptoms None Last BM 5/2 Difficult in: None Skin Integrity/Comment: erythema ulcer to left calf, pink to right leg venita 17 Current %PO Good (75-100%) Estimated Nutritional Goals BEE in Kcals: Using Current wt Calories/Kcals/Kg 23-27 Kcals Calculated 6197-1424 Protein: Using Current wt Protein g/k Protein Calculated 68 Fluid: ml 1564-1836ml (1ml/kcal) Nutritional Problem 1. Problem Problem increased nutrition needs Etiology impaired skin integrity Signs/Symptoms: BLE wounds Malnutrition Alert Is there a minimum of two criteria No selected? Query Text:Check all the applicable criteria. A minimum of two criteria are recommended for diagnosis of either severe or non-severe malnutrition. Malnutrition Related to Morbid Obesity Malnutrition related to morbid obesity No Intervention/Recommendation Comments 1. Continue with regular diet as ordered. 2. Monitor PO intake, wt, labs and skin integrity 3. F/U as low risk in 7 days Expected Outcomes/Goals Expected Outcomes/Goals 1. PO intake to meet at least 75% of nutritional needs. 2. Wt stability, skin to remain intact, labs to approach WNL.
[2019-01-19] MEDS ORDERED: Haloperidol Lactate 5 mg/mL 1mL Vial ONE (15:55)
[2019-01-19] MEDS ORDERED: Haloperidol Lactate 5 mg/mL 1mL Vial IM ONE (15:58)
--- NOTE | 2019-01-20 02:16 | Progress Notes ---
DATE: 01/19/2019 Case was discussed with staff of the patient and reviewed records. The patient apparently [facility] arranged transfer the patient to an assisted facility at [facility]. The patient is sleeping well and eating well. He has been compliant with the medication with no side effects, no sedation, no nausea, and no extrapyramidal symptoms. The patient's behavior in general has been more cooperative. We will continue to work with the patient in group therapy, milieu therapy, and adjust medications as needed. JOB# [id number] [email or web address]
[2019-01-20] MEDS: Multivitamin Tab PO SCH (09:34)
[2019-01-20] MEDS: Therahoney Gel 42.5gm Tube TP SCH (09:35)
[2019-01-20] MEDS: Lactobacillus Rhamnosus GG 15 Billion CFU CAP.SPRINK PO SCH (09:35)
--- NOTE | 2019-01-20 14:35 | Internal Medicine Prog Note ---
Internal Medicine Subjective - Subjective Service Date: 01/20/19 Patient seen and examined:: with staff Patient is:: awake, agitated Patient Complaints of:: cough, SOB Per staff patient has:: no adverse event, no episodes of fall, agitated, combative Internal Medicine Objective - Results Result Diagrams: 01/13/19 12:12 01/13/19 12:12 Recent Labs: Laboratory Last Values WBC 8.9 Th/cmm (4.8-10.8) 01/13/19 12:12 RBC 5.35 Mil/cmm (3.80-5.80) 01/13/19 12:12 Hgb 15.7 gm/dL (12-16) 01/13/19 12:12 Hct 47.5 % (41.0-60) 01/13/19 12:12 MCV 88.8 fl (80-99) 01/13/19 12:12 MCH 29.4 pg (27.0-31.0) 01/13/19 12:12 MCHC Differential 33.1 pg (28.0-36.0) 01/13/19 12:12 RDW 13.7 % (11.5-20.0) 01/13/19 12:12 Plt Count 223 Th/cmm (150-400) 01/13/19 12:12 MPV 9.4 fl 01/13/19 12:12 Neutrophils % 63.9 % (40.0-80.0) 01/13/19 12:12 Lymphocytes % 22.1 % (20.0-50.0) 01/13/19 12:12 Monocytes % 11.1 % (2.0-10.0) H 01/13/19 12:12 Eosinophils % 2.5 % (0.0-5.0) 01/13/19 12:12 Basophils % 0.4 % (0.0-2.0) 01/13/19 12:12 Sodium 137 mEq/L (136-145) 01/13/19 12:12 Potassium 4.0 mEq/L (3.5-5.1) 01/13/19 12:12 Chloride 104 mEq/L (98-107) 01/13/19 12:12 Carbon Dioxide 26.8 mEq/L (21.0-31.0) 01/13/19 12:12 Anion Gap 10.2 (7.0-16.0) 01/13/19 12:12 BUN 24 mg/dL (7-25) 01/13/19 12:12 Creatinine 1.4 mg/dL (0.7-1.3) H 01/13/19 12:12 Est GFR ( Amer) > 60.0 ml/min (>90) 01/13/19 12:12 Est GFR (Non-Af Amer) 53.7 ml/min 01/13/19 12:12 BUN/Creatinine Ratio 17.1 01/13/19 12:12 Glucose 116 mg/dL (70-105) H 01/13/19 12:12 Calcium 9.2 mg/dL (8.6-10.3) 01/13/19 12:12 Total Bilirubin 0.3 mg/dL (0.3-1.0) 01/13/19 12:12 AST 14 U/L (13-39) 01/13/19 12:12 ALT 12 U/L (7-52) 01/13/19 12:12 Alkaline Phosphatase 87 U/L (34-104) 01/13/19 12:12 Total Protein 8.0 gm/dL (6.0-8.3) 01/13/19 12:12 Albumin 3.6 gm/dL (4.2-5.5) L 01/13/19 12:12 Globulin 4.4 gm/dL 01/13/19 12:12 Albumin/Globulin Ratio 0.8 (1.0-1.8) L 01/13/19 12:12 Triglycerides 287 mg/dL (<150) H 01/13/19 12:12 Cholesterol 199 mg/dL (<200) 01/13/19 12:12 LDL Cholesterol Direct 142 mg/dL (75-193) 01/13/19 12:12 HDL Cholesterol 33 mg/dL (23-92) 01/13/19 12:12 TSH 1.14 uIU/ml (0.34-5.60) 01/13/19 12:12 Urine Source CLEAN C 01/13/19 12:10 Urine Color YELLOW 01/13/19 12:10 Urine Clarity HAZY (CLEAR) 01/13/19 12:10 Urine pH 8.0 (4.6 - 8.0) 01/13/19 12:10 Ur Specific [place] 1.010 (1.005-1.030) 01/13/19 12:10 Urine Protein 30 mg/dL (NEGATIVE) H 01/13/19 12:10 Urine Glucose (UA) NEGATIVE mg/dL (NEGATIVE) 01/13/19 12:10 Urine Ketones NEGATIVE mg/dL (NEGATIVE) 01/13/19 12:10 Urine Blood SMALL (NEGATIVE) H 01/13/19 12:10 Urine Nitrate NEGATIVE (NEGATIVE) 01/13/19 12:10 Urine Bilirubin NEGATIVE (NEGATIVE) 01/13/19 12:10 Urine Urobilinogen 0.2 E.U./dL (0.2 - 1.0) 01/13/19 12:10 Ur Leukocyte Esterase MODERATE (NEGATIVE) H 01/13/19 12:10 Urine RBC 10-25 /hpf (0-5) H 01/13/19 12:10 Urine WBC 50-100 /hpf (0-5) H 01/13/19 12:10 Ur Epithelial Cells NONE SEEN /lpf (FEW) 01/13/19 12:10 Urine Bacteria FEW /hpf (NONE SEEN) 01/13/19 12:10 RPR NONREACTIVE (NONREACTIVE) 01/13/19 12:12 - Physical Exam Vitals and I&O: Vital Signs Temp 97.6 F 01/20/19 06:43 Pulse 76 01/20/19 09:35 Resp 18 01/20/19 06:43 BP 152/93 01/20/19 09:35 Pulse Ox 98 01/20/19 06:43 Intake & Output 01/19/19 01/20/19 01/20/19 18:59 06:59 18:59 Intake Total 240 Balance 240 Weight (lbs) 150 lb Intake: Oral 240 Other: # Voids 3 # Bowel Movements 0 Weight Source Bedscale Active Medications: Current Medications Acetaminophen (Tylenol) 650 mg PO Q4HR PRN PRN Reason: Mild Pain / Temp above 100 Stop: 03/14/19 15:11 Al Hydrox/Mg Hydrox/Simethicone (Maalox) 30 ml PO Q4HR PRN PRN Reason: GI DISTRESS Stop: 03/14/19 15:14 Amlodipine Besylate (Norvasc) 10 mg PO DAILY GENNA Stop: 03/15/19 08:59 Last Admin: 01/20/19 09:35 Dose: 10 mg Aripiprazole (Abilify) 10 mg PO HS GENNA; Protocol Stop: 03/21/19 20:59 Bisacodyl (Dulcolax 5 Mg Ec Tab) 5 mg PO Q12H PRN PRN Reason: Constipation Stop: 03/14/19 15:14 Ciprofloxacin (Cipro) 500 mg PO BID GENNA Stop: 01/26/19 09:01 Last Admin: 01/20/19 09:34 Dose: 500 mg Docusate Sodium (Colace) 100 mg PO Q12H PRN PRN Reason: Constipation Stop: 03/14/19 15:14 Hydralazine HCl (Apresoline) 25 mg PO Q8H PRN PRN Reason: SBP ABOVE 150. Stop: 03/14/19 15:14 Lactobacillus Rhamnosus (Culturelle 15b) 1 each PO DAILY [facility] Stop: 03/15/19 08:59 Last Admin: 01/20/19 09:35 Dose: Not Given Magnesium Hydroxide (Milk Of Magnesia) 30 ml PO HS PRN PRN Reason: Constipation Stop: 03/14/19 15:14 Multivitamins/Vitamin C (Theragran) 1 tab PO DAILY [facility] Stop: 03/15/19 08:59 Last Admin: 01/20/19 09:34 Dose: 1 tab Ondansetron HCl (Zofran Odt) 4 mg PO Q4HR PRN PRN Reason: nausea/vomiting Stop: 03/15/19 10:50 Wound Care/Dressing Products (Therahoney) 1 appl TP DAILY [facility] Stop: 03/16/19 16:29 Last Admin: 01/20/19 09:35 Dose: Not Given Zolpidem Tartrate (Ambien) 5 mg PO HS PRN PRN Reason: Insomnia Stop: 03/14/19 15:11 Last Admin: 01/19/19 20:43 Dose: 5 mg General: weak, other (mild cough w/ sob.) HEENT: NC/AT Neck: Supple, No JVD Lungs: CTAB, wheezing, ronchi Cardiovascular: RRR, Normal S1 Abdomen: soft, non-tender Extremities: clear Neurological: no change Internal Medicine Assmt/Plan - Assessment Assessment: Cardiomegaly Combative Psychosis - Plan Plan: Continuation of care Continue present meds as directed Fall precaution Monitor vitals, labs. Psych consult/followup Continue present care management Nutritional Asmnt/Malnutr-PDOC - Dietary Evaluation Malnutrition Findings (Please click <Entered> for more info): Nutritional Asmnt/Malnutrition Start: 01/16/19 11: 44 Text: Status: Complete Freq: Protocol: Document 01/16/19 11:44 MARGARITAMAXIMINO (Rec: 01/16/19 11:58 LCMAXIMINO [email or web address]) Nutritional Asmnt/Malnutrition Patient General Information Nutritional Screening Moderate Risk Diagnosis psychosis Pertinent Medical Hx/Surgical Hx HTN, psychosis, constipation, BPH Subjective Information Consult received for BLE wounds. Pt seen eating lunch in dining room, apeared good appetite. Per EMR, PO intake 100%. Current Diet Order/ Nutrition Support regular Pertinent Medications colace, culturelle, theragran Pertinent Labs 01/13 Cr 1.4, Glucose 116, Alb 3.6 Nutritional Hx/Data Height 5 ft 4 in Height (Calculated Centimeters) 162.6 Current Weight (lbs) 150 lb Weight (Calculated Kilograms) 68.0 Weight (Calculated Grams) 57981.9 [place] Body Weight 130 Body Mass Index (BMI) 25.7 Weight Status Overweight GI Symptoms GI Symptoms None Last BM 5/2 Difficult in: None Skin Integrity/Comment: erythema ulcer to left calf, pink to right leg venita 17 Current %PO Good (75-100%) Estimated Nutritional Goals BEE in Kcals: Using Current wt Calories/Kcals/Kg 23-27 Kcals Calculated 8994-9191 Protein: Using Current wt Protein g/k Protein Calculated 68 Fluid: ml 1564-1836ml (1ml/kcal) Nutritional Problem 1. Problem Problem increased nutrition needs Etiology impaired skin integrity Signs/Symptoms: BLE wounds Malnutrition Alert Is there a minimum of two criteria No selected? Query Text:Check all the applicable criteria. A minimum of two criteria are recommended for diagnosis of either severe or non-severe malnutrition. Malnutrition Related to Morbid Obesity Malnutrition related to morbid obesity No Intervention/Recommendation Comments 1. Continue with regular diet as ordered. 2. Monitor PO intake, wt, labs and skin integrity 3. F/U as low risk in 7 days Expected Outcomes/Goals Expected Outcomes/Goals 1. PO intake to meet at least 75% of nutritional needs. 2. Wt stability, skin to remain intact, labs to approach WNL.
--- NOTE | 2019-01-20 22:36 | Progress Notes ---
DATE: 01/20/2019 SUBJECTIVE: Case was discussed with staff of the patient, reviewed records. The patient tolerated the increase in Abilify. He continues, however, to be unpredictable, impulsive yesterday has to be medicated. He continues to have poor insight. However, he is compliant with the medication with no side effects. He reports that he will get a $15,000 from social security and would like to buy a van and be on his own. He has no side effects with the medication, no sedation, no nausea, no extrapyramidal symptoms. I will be increasing Abilify to 10 mg because of his acting out behavior and we will continue to work with the patient in group therapy, milieu therapy, and adjust the medication as needed. JOB# [id number]
[2019-01-21] MEDS: Therahoney Gel 42.5gm Tube TP SCH (08:55)
[2019-01-21] MEDS: Multivitamin Tab PO SCH (08:55)
[2019-01-21] MEDS: Lactobacillus Rhamnosus GG 15 Billion CFU CAP.SPRINK PO SCH (08:55)
--- NOTE | 2019-01-21 13:36 | Internal Medicine Prog Note ---
Internal Medicine Subjective - Subjective Service Date: 01/21/19 Patient seen and examined:: with staff Patient is:: awake, agitated Patient Complaints of:: cough, SOB Per staff patient has:: no adverse event, no episodes of fall, agitated, combative Internal Medicine Objective - Results Result Diagrams: 01/13/19 12:12 01/13/19 12:12 Recent Labs: Laboratory Last Values WBC 8.9 Th/cmm (4.8-10.8) 01/13/19 12:12 RBC 5.35 Mil/cmm (3.80-5.80) 01/13/19 12:12 Hgb 15.7 gm/dL (12-16) 01/13/19 12:12 Hct 47.5 % (41.0-60) 01/13/19 12:12 MCV 88.8 fl (80-99) 01/13/19 12:12 MCH 29.4 pg (27.0-31.0) 01/13/19 12:12 MCHC Differential 33.1 pg (28.0-36.0) 01/13/19 12:12 RDW 13.7 % (11.5-20.0) 01/13/19 12:12 Plt Count 223 Th/cmm (150-400) 01/13/19 12:12 MPV 9.4 fl 01/13/19 12:12 Neutrophils % 63.9 % (40.0-80.0) 01/13/19 12:12 Lymphocytes % 22.1 % (20.0-50.0) 01/13/19 12:12 Monocytes % 11.1 % (2.0-10.0) H 01/13/19 12:12 Eosinophils % 2.5 % (0.0-5.0) 01/13/19 12:12 Basophils % 0.4 % (0.0-2.0) 01/13/19 12:12 Sodium 137 mEq/L (136-145) 01/13/19 12:12 Potassium 4.0 mEq/L (3.5-5.1) 01/13/19 12:12 Chloride 104 mEq/L (98-107) 01/13/19 12:12 Carbon Dioxide 26.8 mEq/L (21.0-31.0) 01/13/19 12:12 Anion Gap 10.2 (7.0-16.0) 01/13/19 12:12 BUN 24 mg/dL (7-25) 01/13/19 12:12 Creatinine 1.4 mg/dL (0.7-1.3) H 01/13/19 12:12 Est GFR ( Amer) > 60.0 ml/min (>90) 01/13/19 12:12 Est GFR (Non-Af Amer) 53.7 ml/min 01/13/19 12:12 BUN/Creatinine Ratio 17.1 01/13/19 12:12 Glucose 116 mg/dL (70-105) H 01/13/19 12:12 Calcium 9.2 mg/dL (8.6-10.3) 01/13/19 12:12 Total Bilirubin 0.3 mg/dL (0.3-1.0) 01/13/19 12:12 AST 14 U/L (13-39) 01/13/19 12:12 ALT 12 U/L (7-52) 01/13/19 12:12 Alkaline Phosphatase 87 U/L (34-104) 01/13/19 12:12 Total Protein 8.0 gm/dL (6.0-8.3) 01/13/19 12:12 Albumin 3.6 gm/dL (4.2-5.5) L 01/13/19 12:12 Globulin 4.4 gm/dL 01/13/19 12:12 Albumin/Globulin Ratio 0.8 (1.0-1.8) L 01/13/19 12:12 Triglycerides 287 mg/dL (<150) H 01/13/19 12:12 Cholesterol 199 mg/dL (<200) 01/13/19 12:12 LDL Cholesterol Direct 142 mg/dL (75-193) 01/13/19 12:12 HDL Cholesterol 33 mg/dL (23-92) 01/13/19 12:12 TSH 1.14 uIU/ml (0.34-5.60) 01/13/19 12:12 Urine Source CLEAN C 01/13/19 12:10 Urine Color YELLOW 01/13/19 12:10 Urine Clarity HAZY (CLEAR) 01/13/19 12:10 Urine pH 8.0 (4.6 - 8.0) 01/13/19 12:10 Ur Specific [place] 1.010 (1.005-1.030) 01/13/19 12:10 Urine Protein 30 mg/dL (NEGATIVE) H 01/13/19 12:10 Urine Glucose (UA) NEGATIVE mg/dL (NEGATIVE) 01/13/19 12:10 Urine Ketones NEGATIVE mg/dL (NEGATIVE) 01/13/19 12:10 Urine Blood SMALL (NEGATIVE) H 01/13/19 12:10 Urine Nitrate NEGATIVE (NEGATIVE) 01/13/19 12:10 Urine Bilirubin NEGATIVE (NEGATIVE) 01/13/19 12:10 Urine Urobilinogen 0.2 E.U./dL (0.2 - 1.0) 01/13/19 12:10 Ur Leukocyte Esterase MODERATE (NEGATIVE) H 01/13/19 12:10 Urine RBC 10-25 /hpf (0-5) H 01/13/19 12:10 Urine WBC 50-100 /hpf (0-5) H 01/13/19 12:10 Ur Epithelial Cells NONE SEEN /lpf (FEW) 01/13/19 12:10 Urine Bacteria FEW /hpf (NONE SEEN) 01/13/19 12:10 RPR NONREACTIVE (NONREACTIVE) 01/13/19 12:12 - Physical Exam Vitals and I&O: Vital Signs Temp 96.5 F 01/21/19 06:29 Pulse 93 01/21/19 08:54 Resp 19 01/21/19 06:29 BP 150/97 01/21/19 08:54 Pulse Ox 91 01/21/19 06:29 Intake & Output 01/20/19 01/21/19 01/21/19 18:59 06:59 18:59 Intake Total 1080 400 Output Total 3 Balance 1077 400 Intake: Oral 1080 400 Output: Urine 3 Other: # Voids 2 # Bowel Movements 0 0 Active Medications: Current Medications Acetaminophen (Tylenol) 650 mg PO Q4HR PRN PRN Reason: Mild Pain / Temp above 100 Stop: 03/14/19 15:11 Al Hydrox/Mg Hydrox/Simethicone (Maalox) 30 ml PO Q4HR PRN PRN Reason: GI DISTRESS Stop: 03/14/19 15:14 Amlodipine Besylate (Norvasc) 10 mg PO DAILY GENNA Stop: 03/15/19 08:59 Last Admin: 01/21/19 08:54 Dose: 10 mg Aripiprazole (Abilify) 10 mg PO HS GENNA; Protocol Stop: 03/21/19 20:59 Last Admin: 01/20/19 21:38 Dose: 10 mg Bisacodyl (Dulcolax 5 Mg Ec Tab) 5 mg PO Q12H PRN PRN Reason: Constipation Stop: 03/14/19 15:14 Ciprofloxacin (Cipro) 500 mg PO BID GENNA Stop: 01/26/19 09:01 Last Admin: 01/21/19 08:54 Dose: 500 mg Docusate Sodium (Colace) 100 mg PO Q12H PRN PRN Reason: Constipation Stop: 03/14/19 15:14 Hydralazine HCl (Apresoline) 25 mg PO Q8H PRN PRN Reason: SBP ABOVE 150. Stop: 03/14/19 15:14 Lactobacillus Rhamnosus (Culturelle 15b) 1 each PO DAILY GENNA Stop: 03/15/19 08:59 Last Admin: 01/21/19 08:55 Dose: 1 each Magnesium Hydroxide (Milk Of Magnesia) 30 ml PO HS PRN PRN Reason: Constipation Stop: 03/14/19 15:14 Multivitamins/Vitamin C (Theragran) 1 tab PO DAILY GENNA Stop: 03/15/19 08:59 Last Admin: 01/21/19 08:55 Dose: 1 tab Ondansetron HCl (Zofran Odt) 4 mg PO Q4HR PRN PRN Reason: nausea/vomiting Stop: 03/15/19 10:50 Wound Care/Dressing Products (Therahoney) 1 appl TP DAILY [facility] Stop: 03/16/19 16:29 Last Admin: 01/21/19 08:55 Dose: 1 appl Zolpidem Tartrate (Ambien) 5 mg PO HS PRN PRN Reason: Insomnia Stop: 03/14/19 15:11 Last Admin: 01/20/19 21:38 Dose: 5 mg Physical Exam: 68 y/o male patient has been combative, has a mild cough with sob. Chest x-ray recently done showed Cardiomegaly. General: weak, other (mild cough w/ sob.) HEENT: NC/AT Neck: Supple, No JVD Lungs: CTAB, wheezing, ronchi Cardiovascular: RRR, Normal S1 Abdomen: soft, non-tender Extremities: clear Neurological: no change Internal Medicine Assmt/Plan - Assessment Assessment: Cardiomegaly Combative Psychosis Aggressive behavior. - Plan Plan: Continuation of care Continue present meds as directed Fall precaution Monitor vitals, labs. Psych consult/followup Continue present care management Nutritional Asmnt/Malnutr-PDOC - Dietary Evaluation Malnutrition Findings (Please click <Entered> for more info): Nutritional Asmnt/Malnutrition Start: 01/16/19 11: 44 Text: Status: Complete Freq: Protocol: Document 01/16/19 11:44 LCHENG (Rec: 01/16/19 11:58 LCHENG [email or web address]) Nutritional Asmnt/Malnutrition Patient General Information Nutritional Screening Moderate Risk Diagnosis psychosis Pertinent Medical Hx/Surgical Hx HTN, psychosis, constipation, BPH Subjective Information Consult received for BLE wounds. Pt seen eating lunch in dining room, apeared good appetite. Per EMR, PO intake 100%. Current Diet Order/ Nutrition Support regular Pertinent Medications colace, culturelle, theragran Pertinent Labs 01/13 Cr 1.4, Glucose 116, Alb 3.6 Nutritional Hx/Data Height 1.63 m Height (Calculated Centimeters) 162.6 Current Weight (lbs) 68.039 kg Weight (Calculated Kilograms) 68.0 Weight (Calculated Grams) 44199.9 [place] Body Weight 130 Body Mass Index (BMI) 25.7 Weight Status Overweight GI Symptoms GI Symptoms None Last BM 5/2 Difficult in: None Skin Integrity/Comment: erythema ulcer to left calf, pink to right leg venita 17 Current %PO Good (75-100%) Estimated Nutritional Goals BEE in Kcals: Using Current wt Calories/Kcals/Kg 23-27 Kcals Calculated 7950-1446 Protein: Using Current wt Protein g/k Protein Calculated 68 Fluid: ml 1564-1836ml (1ml/kcal) Nutritional Problem 1. Problem Problem increased nutrition needs Etiology impaired skin integrity Signs/Symptoms: BLE wounds Malnutrition Alert Is there a minimum of two criteria No selected? Query Text:Check all the applicable criteria. A minimum of two criteria are recommended for diagnosis of either severe or non-severe malnutrition. Malnutrition Related to Morbid Obesity Malnutrition related to morbid obesity No Intervention/Recommendation Comments 1. Continue with regular diet as ordered. 2. Monitor PO intake, wt, labs and skin integrity 3. F/U as low risk in 7 days Expected Outcomes/Goals Expected Outcomes/Goals 1. PO intake to meet at least 75% of nutritional needs. 2. Wt stability, skin to remain intact, labs to approach WNL.
--- NOTE | 2019-01-21 21:42 | Progress Notes ---
DATE: 01/21/2019 SUBJECTIVE: Case was discussed with staff of the patient, reviewed records. The patient was seen by [facility], they did rejected him. He was seen by [facility] and they rejected to accept them. The patient wants to leave the State. He said he was going to get back pay of $15,000 once ____ leave the State. However, today ____ talk to him. He continues to have poor insight, unpredictable and impulsive. He tolerated the increase in Abilify with no side effects, no sedation, no nausea and no extrapyramidal symptoms. We will continue the patient in group therapy, milieu therapy, and adjust medications as needed. JOB# [id number]
[2019-01-22] MEDS: Lactobacillus Rhamnosus GG 15 Billion CFU CAP.SPRINK PO SCH (09:51)
[2019-01-22] MEDS: Multivitamin Tab PO SCH (09:52)
[2019-01-22] MEDS: Therahoney Gel 42.5gm Tube TP SCH (09:55)
--- NOTE | 2019-01-22 22:57 | Progress Notes ---
DATE: 01/22/2019 SUBJECTIVE: Case was discussed with staff of the patient and reviewed records. The patient was accepted by [facility] yesterday. He continues to look disheveled, internally preoccupied, but in general, he is easier to redirect. He is compliant with the medication with no side effects, no sedation, no nausea, no extrapyramidal symptoms. I will increase Abilify ____ with no side effects and working on discharge plans. He keeps saying that he would like to leave this State and go out of State. We will continue to work with the patient in group therapy and milieu therapy and adjust the medication as needed. JOB# [id number]
[2019-01-23] MEDS: Lactobacillus Rhamnosus GG 15 Billion CFU CAP.SPRINK PO SCH (08:43)
[2019-01-23] MEDS: Multivitamin Tab PO SCH (08:43)
[2019-01-23] MEDS: Therahoney Gel 42.5gm Tube TP SCH (09:15)
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
--- NOTE | 2019-01-23 13:59 | Internal Medicine Prog Note ---
Internal Medicine Subjective - Subjective Service Date: 01/23/19 Patient seen and examined:: with staff Patient is:: awake, other (Psychosis and Bipolar-well cntrolled.) Patient Complaints of:: other Per staff patient has:: no adverse event, no episodes of fall Internal Medicine Objective - Results Result Diagrams: 01/13/19 12:12 01/13/19 12:12 Recent Labs: Laboratory Last Values WBC 8.9 Th/cmm (4.8-10.8) 01/13/19 12:12 RBC 5.35 Mil/cmm (3.80-5.80) 01/13/19 12:12 Hgb 15.7 gm/dL (12-16) 01/13/19 12:12 Hct 47.5 % (41.0-60) 01/13/19 12:12 MCV 88.8 fl (80-99) 01/13/19 12:12 MCH 29.4 pg (27.0-31.0) 01/13/19 12:12 MCHC Differential 33.1 pg (28.0-36.0) 01/13/19 12:12 RDW 13.7 % (11.5-20.0) 01/13/19 12:12 Plt Count 223 Th/cmm (150-400) 01/13/19 12:12 MPV 9.4 fl 01/13/19 12:12 Neutrophils % 63.9 % (40.0-80.0) 01/13/19 12:12 Lymphocytes % 22.1 % (20.0-50.0) 01/13/19 12:12 Monocytes % 11.1 % (2.0-10.0) H 01/13/19 12:12 Eosinophils % 2.5 % (0.0-5.0) 01/13/19 12:12 Basophils % 0.4 % (0.0-2.0) 01/13/19 12:12 Sodium 137 mEq/L (136-145) 01/13/19 12:12 Potassium 4.0 mEq/L (3.5-5.1) 01/13/19 12:12 Chloride 104 mEq/L (98-107) 01/13/19 12:12 Carbon Dioxide 26.8 mEq/L (21.0-31.0) 01/13/19 12:12 Anion Gap 10.2 (7.0-16.0) 01/13/19 12:12 BUN 24 mg/dL (7-25) 01/13/19 12:12 Creatinine 1.4 mg/dL (0.7-1.3) H 01/13/19 12:12 Est GFR ( Amer) > 60.0 ml/min (>90) 01/13/19 12:12 Est GFR (Non-Af Amer) 53.7 ml/min 01/13/19 12:12 BUN/Creatinine Ratio 17.1 01/13/19 12:12 Glucose 116 mg/dL (70-105) H 01/13/19 12:12 Calcium 9.2 mg/dL (8.6-10.3) 01/13/19 12:12 Total Bilirubin 0.3 mg/dL (0.3-1.0) 01/13/19 12:12 AST 14 U/L (13-39) 01/13/19 12:12 ALT 12 U/L (7-52) 01/13/19 12:12 Alkaline Phosphatase 87 U/L (34-104) 01/13/19 12:12 Total Protein 8.0 gm/dL (6.0-8.3) 01/13/19 12:12 Albumin 3.6 gm/dL (4.2-5.5) L 01/13/19 12:12 Globulin 4.4 gm/dL 01/13/19 12:12 Albumin/Globulin Ratio 0.8 (1.0-1.8) L 01/13/19 12:12 Triglycerides 287 mg/dL (<150) H 01/13/19 12:12 Cholesterol 199 mg/dL (<200) 01/13/19 12:12 LDL Cholesterol Direct 142 mg/dL (75-193) 01/13/19 12:12 HDL Cholesterol 33 mg/dL (23-92) 01/13/19 12:12 TSH 1.14 uIU/ml (0.34-5.60) 01/13/19 12:12 Urine Source CLEAN C 01/13/19 12:10 Urine Color YELLOW 01/13/19 12:10 Urine Clarity HAZY (CLEAR) 01/13/19 12:10 Urine pH 8.0 (4.6 - 8.0) 01/13/19 12:10 Ur Specific Sulphur 1.010 (1.005-1.030) 01/13/19 12:10 Urine Protein 30 mg/dL (NEGATIVE) H 01/13/19 12:10 Urine Glucose (UA) NEGATIVE mg/dL (NEGATIVE) 01/13/19 12:10 Urine Ketones NEGATIVE mg/dL (NEGATIVE) 01/13/19 12:10 Urine Blood SMALL (NEGATIVE) H 01/13/19 12:10 Urine Nitrate NEGATIVE (NEGATIVE) 01/13/19 12:10 Urine Bilirubin NEGATIVE (NEGATIVE) 01/13/19 12:10 Urine Urobilinogen 0.2 E.U./dL (0.2 - 1.0) 01/13/19 12:10 Ur Leukocyte Esterase MODERATE (NEGATIVE) H 01/13/19 12:10 Urine RBC 10-25 /hpf (0-5) H 01/13/19 12:10 Urine WBC 50-100 /hpf (0-5) H 01/13/19 12:10 Ur Epithelial Cells NONE SEEN /lpf (FEW) 01/13/19 12:10 Urine Bacteria FEW /hpf (NONE SEEN) 01/13/19 12:10 RPR NONREACTIVE (NONREACTIVE) 01/13/19 12:12 - Physical Exam Vitals and I&O: Vital Signs Temp 97.8 F 01/23/19 12:07 Pulse 78 01/23/19 12:07 Resp 18 01/23/19 12:07 BP 149/84 01/23/19 12:07 Pulse Ox 97 01/23/19 12:07 Intake & Output 01/22/19 01/23/19 01/23/19 18:59 06:59 18:59 Intake Total 1000 480 Balance 1000 480 Intake: Oral 1000 480 Other: # Voids 4 2 # Bowel Movements 1 Active Medications: Current Medications Acetaminophen (Tylenol) 650 mg PO Q4HR PRN PRN Reason: Mild Pain / Temp above 100 Stop: 03/14/19 15:11 Last Admin: 01/21/19 21:22 Dose: 650 mg Al Hydrox/Mg Hydrox/Simethicone (Maalox) 30 ml PO Q4HR PRN PRN Reason: GI DISTRESS Stop: 03/14/19 15:14 Amlodipine Besylate (Norvasc) 10 mg PO DAILY GENNA Stop: 03/15/19 08:59 Last Admin: 01/23/19 08:43 Dose: 10 mg Aripiprazole (Abilify) 10 mg PO HS GENNA; Protocol Stop: 03/21/19 20:59 Last Admin: 01/22/19 21:42 Dose: 10 mg Bisacodyl (Dulcolax 5 Mg Ec Tab) 5 mg PO Q12H PRN PRN Reason: Constipation Stop: 03/14/19 15:14 Ciprofloxacin (Cipro) 500 mg PO BID GENNA Stop: 01/26/19 09:01 Last Admin: 01/23/19 08:42 Dose: 500 mg Docusate Sodium (Colace) 100 mg PO Q12H PRN PRN Reason: Constipation Stop: 03/14/19 15:14 Hydralazine HCl (Apresoline) 25 mg PO Q8H PRN PRN Reason: SBP ABOVE 150. Stop: 03/14/19 15:14 Lactobacillus Rhamnosus (Culturelle 15b) 1 each PO DAILY GENNA Stop: 03/15/19 08:59 Last Admin: 01/23/19 08:43 Dose: 1 each Magnesium Hydroxide (Milk Of Magnesia) 30 ml PO HS PRN PRN Reason: Constipation Stop: 03/14/19 15:14 Multivitamins/Vitamin C (Theragran) 1 tab PO DAILY GENNA Stop: 03/15/19 08:59 Last Admin: 01/23/19 08:43 Dose: 1 tab Ondansetron HCl (Zofran Odt) 4 mg PO Q4HR PRN PRN Reason: nausea/vomiting Stop: 03/15/19 10:50 Wound Care/Dressing Products (Therahoney) 1 appl TP DAILY GENNA Stop: 03/16/19 16:29 Last Admin: 01/23/19 09:15 Dose: 1 appl Zolpidem Tartrate (Ambien) 5 mg PO HS PRN PRN Reason: Insomnia Stop: 03/14/19 15:11 Last Admin: 01/22/19 21:42 Dose: 5 mg Physical Exam: 68 y/o male patient has been doing better, discharge planning. General: weak, other (mild cough w/ sob.) HEENT: NC/AT Neck: Supple, No JVD Lungs: CTAB, wheezing, ronchi Cardiovascular: RRR, Normal S1 Abdomen: soft, non-tender Extremities: clear Neurological: no change Internal Medicine Assmt/Plan - Assessment Assessment: Cardiomegaly Bipolar disorder, well controlled. Psychosis-well controlled. - Plan Plan: Continuation of care Continue present meds as directed Fall precaution Monitor vitals, labs. Discharge planning to SNF. Continue present care management Nutritional Asmnt/Malnutr-PDOC - Dietary Evaluation Malnutrition Findings (Please click <Entered> for more info): Nutritional Asmnt/Malnutrition Start: 01/16/19 11: 44 Text: Status: Complete Freq: Protocol: Document 01/16/19 11:44 HENG (Rec: 01/16/19 11:58 [email or web address] [id number]) Nutritional Asmnt/Malnutrition Patient General Information Nutritional Screening Moderate Risk Diagnosis psychosis Pertinent Medical Hx/Surgical Hx HTN, psychosis, constipation, BPH Subjective Information Consult received for BLE wounds. Pt seen eating lunch in dining room, apeared good appetite. Per EMR, PO intake 100%. Current Diet Order/ Nutrition Support regular Pertinent Medications colace, culturelle, theragran Pertinent Labs 01/13 Cr 1.4, Glucose 116, Alb 3.6 Nutritional Hx/Data Height 1.63 m Height (Calculated Centimeters) 162.6 Current Weight (lbs) 68.039 kg Weight (Calculated Kilograms) 68.0 Weight (Calculated Grams) 91302.9 [place] Body Weight 130 Body Mass Index (BMI) 25.7 Weight Status Overweight GI Symptoms GI Symptoms None Last BM 5/2 Difficult in: None Skin Integrity/Comment: erythema ulcer to left calf, pink to right leg venita 17 Current %PO Good (75-100%) Estimated Nutritional Goals BEE in Kcals: Using Current wt Calories/Kcals/Kg 23-27 Kcals Calculated 4435-3755 Protein: Using Current wt Protein g/k Protein Calculated 68 Fluid: ml 1564-1836ml (1ml/kcal) Nutritional Problem 1. Problem Problem increased nutrition needs Etiology impaired skin integrity Signs/Symptoms: BLE wounds Malnutrition Alert Is there a minimum of two criteria No selected? Query Text:Check all the applicable criteria. A minimum of two criteria are recommended for diagnosis of either severe or non-severe malnutrition. Malnutrition Related to Morbid Obesity Malnutrition related to morbid obesity No Intervention/Recommendation Comments 1. Continue with regular diet as ordered. 2. Monitor PO intake, wt, labs and skin integrity 3. F/U as low risk in 7 days Expected Outcomes/Goals Expected Outcomes/Goals 1. PO intake to meet at least 75% of nutritional needs. 2. Wt stability, skin to remain intact, labs to approach WNL.
== END 2019-01-23 16:30 | DRG 885 ==
LOC: ER 10:39 → GERO 13:00
PROVIDERS: ADMIT Psychiatry & Neurology Psychiatry; ATTEND Psychiatry & Neurology Psychiatry
DX: F31.5 Bipolar disorder, current episode depressed, severe, with psychotic features (principal); N39.0 Urinary tract infection, site not specified; N40.0 Benign prostatic hyperplasia without lower urinary tract symptoms; I11.9 Hypertensive heart disease without heart failure; M19.90 Unspecified osteoarthritis, unspecified site; Z88.8 Allergy status to other drugs, medicaments and biological substances
CPT/HCPCS: 36415-UA; 71045-TC; 80053-TC; 80061-TC; 81001-TC; 83036-90; 84443-TC; 85025-TC; 86592-TC; 87086-90; 90899; 93005; G0410; J1200; J1630; J2060; Z7610